=== PATIENT | male | born 1950 | race Caucasian/White ===

== ENCOUNTER → 2023-08-14 07:05 | Outpatient (REF) | payer OTHER, SELFPAY | LOC: RAD 07:05 | PROVIDERS: ATTENDING PHYSICIAN Internal Medicine Cardiovascular Disease; FAMILY PHYSICIAN Family Medicine | DX: I50.22 Chronic systolic (congestive) heart failure (principal); I71.40 Abdominal aortic aneurysm, without rupture, unspecified | CPT/HCPCS: 76770 ==

== ENCOUNTER 2023-09-07 18:53 | Inpatient (IN) | payer OTHER, SELFPAY ==
[2023-09-07] VITALS (13 sets, daily range): BP systolic 94–113; BP diastolic 72–90; BMI 24.5; BMI 24.0
[2023-09-07 11:55] LABS: % Basophils 0.1 % (0-2); % Eosinophils 0.1 % (0-6); % Immature Granulocytes 0.7 % (0-0.5); % Lymphocytes 6.3 % (20.5-51.1); % Monocytes 8.1 % (1.7-9.3); % Neutrophils 84.7 % (42.2-75.2); Absolute Immature Granulocytes 0.1 10^3/uL (0-0.05); Absolute Lymphocytes 0.7 10^3/uL (1.2-3.4); Absolute Monocytes 0.9 10^3/uL (0.1-0.6); Absolute Neutrophils 9.5 10^3/uL (1.4-6.5); Hematocrit 39.7 % (39.0-52.0); Mean Corp Hgb Conc. 32.7 g/dL (33.0-37.0); Mean Corpuscular Hgb 32.7 pg (27.0-31.0); Mean Platelet Volume 10.8 fL (7.4-10.4); Nucleated Red Blood Cells % 0 % (-); Platelet Count 244 10^3/uL (130-400); Red Blood Cell Count 3.97 10^6/uL (4.70-6.10); Red Cell Dist. Width 15.7 % (11.5-14.5); White Blood Cell Count 11.2 10^3/uL (4.8-10.8)
[2023-09-07 12:54] LABS: ALT (SGPT) 271 U/L (0-50); AST (SGOT) 111 U/L (17-59); Albumin 3.9 g/dl (3.5-5.0); Alkaline Phosphatase 122 U/L (38-126); Blood Urea Nitrogen 50 mg/dl (9-20); Calcium 9.8 mg/dl (8.4-10.2); Carbon Dioxide 21 mmol/L (22-30); Chloride 103 mmol/L (98-107); Glucose 109 mg/dl (70-99); Potassium 4.9 mmol/L (3.5-5.1); Sodium 136 mmol/L (135-145); Total Bilirubin 1.6 mg/dl (0.2-1.3); Total Protein 6.7 g/dl (6.3-8.2); eGFR > 60.00
--- NOTE | 2023-09-07 15:33 | ED.GENMED ---
History of Present Illness
General
Chief Complaint: Heart Rate Problem
Time Seen by Provider: 09/07/23 15:33
Travel History
Have you had any contact with someone who has COVID-19?: No
Do you have any symptoms of coronavirus? Fever > 100 degrees, chills, cough, shortness of breath, sore throat, loss of taste or smell, muscle aches, or headache?: No
History of Present Illness
History of Present Illness:
HPI: H/o AFib currently on Eliquis (was at [facility] recently due to LFTs 'in the 999s' - stopped Amio, Coumadin, spironolactone; started lasix, carvedilol) here w/ LE burning and swelling that he thinks could be related to Long COVID. Known to
Mariel and was called indicating he went back into AFib about 1.5 wks ago. He has worsening SOB as well.
EXAM:
GENERAL: Well appearing in no distress
HEENT: Moist oral mucosa
CARDIOVASCULAR: No murmurs, normal heart rate, regular rhythm with some ectopy, No chest wall tenderness, device noted anterior chest wall
PULMONARY: No respiratory distress, breath sounds are clear and equal
ABDOMEN: Soft with no peritoneal signs, no tenderness
NEUROLOGIC: Excellent strength all extremities, no coordination deficits
PSYCHIATRIC: Appropriate mental status, normal insight and judgement
EXTREMITIES: Nontender, 2+ edema on right and 1+ edema in left lower extremity, moves all extremities equally
SKIN: No rash, no lesions
TIME OF INITIAL ENCOUNTER: 3:50 PM
NUMBER AND COMPLEXITY OF PROBLEMS ADDRESSED AT THE ENCOUNTER
� Chronic conditions affecting care: Atrial fibrillation on Eliquis, cardiomyopathy/CHF on Entresto, CAD, has pacer/ICD, basal cell carcinoma
� Acute Exacerbation and/or Progression of Chronic Illness: This is an acute problem
� Differential Diagnosis includes: Cardiomyopathy/CHF worsening off Entresto, atrial fibrillation,
AMOUNT AND/OR COMPLEXITY OF DATA TO BE REVIEWED AND ANALYZED
� I performed an independent evaluation of and my interpretation is:
EKG: Suspect underlying A-fib, V paced
CT:
X-rays: Reviewed chest x-ray, borderline cardiomegaly noted, device noted, may be some mild pulmonary vascular congestion,
Laboratory Studies: BNP 12,000, white count 11.2, hemoglobin 13.0, BUN 50, creatinine 1.2, transaminases are in the 100s-200s.
Other:
� Review of other/old records: Echo from December 2019 showed an EF of 20 to 25%
� Clinical information was obtained by an independent historian: I spoke to the at bedside
� Prescriptions/Medications Considered but not given:
� Further testing considered but not performed:
RISK OF COMPLICATIONS AND/OR MORBIDITY OR MORTALITY OF PATIENT MANAGEMENT
� Social determinants of health affecting care: Lives at home
� Discussion with other providers: I discussed case with Dr. Gan, cardiology who recommends admission to hospitalist service. Dr. Schultz for admission at 5:30 PM.
� Escalation of care including admission/observation vs risk of discharge considered: Symptoms may be related to heart failure. Although his lungs sound fairly clear, he does have exertional dyspnea and his BNP is 12,000, chest
x-ray does show some pulmonary edema. BP has been borderline low�will give only 20 mg of IV Lasix.
Past History
Past History
ED Past Medical History: Arrthythmia and CHF
Social History
Tobacco: Former smoker
Phy Exam
Physical Exam
Physical Exam:
See HPI
Course
Orders/Labs/Results
Orders:
Orders
09/07/23 11:32
Electrocardiogram (*1) Urgent
Reason for Study: Palpitations
EKG- Treatment ONCE
09/07/23 11:48
Complete Blood Count/With Diff Urgent
Comprehensive Metabolic Panel Urgent
NT-proBNP Urgent
Comment: BNP ADDED ON BY FLOOR 3:50pm 09-07-23
09/07/23 15:50
Add On- LAB Urgent
Tests Added?: bnp
09/07/23 15:51
CR Chest - 2 Views Urgent
Comment:
Reason For Exam: sob
US Legs, Bilateral [US Periph Venous LOWER Ext Johnny] Urgent
Comment:
Reason For Exam: R>L LE edema
09/07/23 17:26
Furosemide [Lasix] 20 mg IV NOW STA
Abnormal Lab Results
09/07/23
11:48
WBC 11.2 H 10^3/uL
(4.8-10.8)
RBC 3.97 L 10^6/uL
(4.70-6.10)
MCV 100.0 H fL
(80.0-94.0)
MCH 32.7 H pg
(27.0-31.0)
MCHC 32.7 L g/dL
(33.0-37.0)
RDW 15.7 H %
(11.5-14.5)
MPV 10.8 H fL
(7.4-10.4)
Abs Immat Gran (auto) 0.1 H 10^3/uL
(0-0.05)
Absolute Neuts (auto) 9.5 H 10^3/uL
(1.4-6.5)
Absolute Lymphs (auto) 0.7 L 10^3/uL
(1.2-3.4)
Absolute Monos (auto) 0.9 H 10^3/uL
(0.1-0.6)
Immature Gran % 0.7 H %
(0-0.5)
Neutrophils % 84.7 H %
(42.2-75.2)
Lymphocytes % 6.3 L %
(20.5-51.1)
Carbon Dioxide 21 L mmol/L
(22-30)
BUN 50 H mg/dl
(9-20)
Glucose 109 H mg/dl
(70-99)
Total Bilirubin 1.6 H mg/dl
(0.2-1.3)
AST 111 H U/L
(17-59)
ALT 271 H U/L
(0-50)
09/07/23 11:48
09/07/23 11:48
Vital Signs
Initial and Last Documented VS:
Initial Vital Signs
Temp Pulse Resp BP Pulse Ox
97.7 F 99 18 102/72 99
09/07/23 11:29 09/07/23 11:29 09/07/23 11:29 09/07/23 11:29 09/07/23 11:29
Last Documented Vital Signs
Temp Pulse Resp BP Pulse Ox
97.7 F 91 15 94/78 99
09/07/23 11:29 09/07/23 15:30 09/07/23 15:30 09/07/23 15:00 09/07/23 11:29
*Critical Care Note
Total Time (30-74mins, 75-104mins- exclusive of procedures): Not Applicable
ED Attending Note
-
Portions of this chart may have been created with voice recognition software.� Occasional wrong word or��sound alike� substitutions may have occurred due to the inherent limitations of voice recognition software.
Discharge Plan
Departure
Patient Disposition: Admit
Date of Disposition: 09/07/23
Time of Disposition: 17:31
Presentation/result/management discussed w/ accepting MD/DO: Hospitalist
Discharge Problem:
Congestive heart failure (CHF)
Prescriptions:
No Action
multivitamin 1 EACH tablet
1 ea PO DAILY
pantoprazole 40 MG tablet,delayed release (DR/EC)
40 mg PO DAILY
furosemide 20 MG tablet
20 mg PO DAILY
Patient Comments:
one dose over weekend.
sertraline 50 MG tablet
75 mg PO DAILY
fenofibrate nanocrystallized 145 MG tablet
145 mg PO DAILY
carvedilol 6.25 MG tablet
6.25 mg PO BID
amiodarone [Pacerone] 200 MG tablet
200 mg PO Q48H
spironolactone 25 MG tablet
12.5 mg PO MOWEFR
sacubitril-valsartan [Entresto] 1 EACH tablet
1 tab PO BID
warfarin [Jantoven] 5 MG tablet
2.5 - 5 mg PO QPM Qty: 0 0RF
Patient Comments:
PT TAKES 2.5 MG X 2 DAYS, 5MG X 1 DAY-THEN REPEATS
Rx Instructions:
Resume on Thu evening
Referrals:
Brendan Webber DO [Family Provider] -
Interventions
Interventions:
*Risk Screen - Suicide Last Done: 09/07/23 11:29
*General Assessment Last Done: 09/07/23 11:29
*Neglect/Abuse Screening Last Done: 09/07/23 11:29
ED- Fall Risk Assessment Last Done: 09/07/23 14:26
*ED COVID-19 Vaccine History Last Done: 09/07/23 11:29
ED- Cardiac Assessment Last Done: 09/07/23 14:26
ED- Pulmonary Assessment Last Done: 09/07/23 14:26
Discharge Date and Time
Print Language: ISRAELI
--- NOTE | 2023-09-07 16:56 | CON.CAR ---
Addendum entered and electronically signed by Brendan Garg MD 09/07/23 17:59:
Patient seen and examined
Agree with FERNIE Spencer's note and assessment
Agree with FERNIE Spencer's plan
Recent hospitalization and records reviewed demonstrating hypotension, elevated liver enzymes, discontinuation of multiple medicines including amiodarone, Entresto, spironolactone and he has been approximately 2 to 3 weeks of atrial fibrillation
with modestly elevated rates in 80s to 90s which is interfering with his biventricular pacing. By report a low I do not have records they tell me that his aneurysm was reimaged at [facility] demonstrating a 4.9 cm abdominal aneurysm with imaging
here at 4.2 cm just last month in July. He was offered surgery for the aneurysm at [facility] which they declined. We will have to obtain these records. He has no abdominal pain currently. He does examine 2 symptoms and signs of congestive
heart failure and is in persistent atrial fibrillation. He has a biventricular ICD in place with ejection fraction most recent of 20 to 25% and he sees Dr. Fausto Floyd in the office. He has a prior pulmonary vein isolation in 2017 and had
been on chronic amiodarone use since then.
Currently seen in the ER he is in mild respiratory distress and has symptoms and signs of congestive heart failure.
His INRs have been 'up and down 'and during the first week of being in atrial fibrillation his INRs appear to be less than 2 and we will have to corroborate in the records. Ultimately given his up-and-down INR is over the past number of months he
was switched to Eliquis at discharge from [facility] on August 31.
Examination:
He is icteric
H&T otherwise normocephalic atraumatic
JVP is 8
Cor is irregularly irregular with 1 out of 6 systolic murmur at the axilla
He has rales at his bases otherwise clear
Abdomen is soft with a palpable abdominal pulse
He has 1+ edema to his mid calf
He is nonfocal neurologically
He is alert and orient x 3
He is warm dry
Impression:
Acute HFrEF
ICM EF 20-25% by echo 01/16/20
Recurrent atrial fibrillation
Transaminitis
Biventricular volume overload
Persistent Afib
s/p PVI 09/25/16
previously on chronic amiodarone, stopped due to elevated LFTs at [facility] 08/30/23Eliquis OAC
changed from warfarin to Eliquis during admission to [facility] 4CAD s/p PCI at [facility] 2000
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
CKD 3a
AAA 4.2 cm at imaging here in July 2023 and by report per the patient and 4.9 cm at imaging at [facility] of that we do not have the records
Echo 2019: EF 20-25%
Echo 08/30/23: [facility] study, EF 20%, RV mildly enlarged, mod MR
Plan:
-Patient was just admitted to [facility] and now comes to with the same symptoms and cardiology is consulted for Afib and acute HF. Patient was just admitted to [facility] 08/29/23 until 09/01/23 with elevated LFTs. Patient was seen by GI and his amiodarone
and Tricor were stopped. Records from [facility] were obtained and reviewed. Due to hypotension he also had his Entresto and spironolactone were also stopped. He has known ICM and EF as low as 5-10% in the past, but in 2020 it was 20-25% in 2020. He had
an echo at [facility] and it was 20%. On 08/25/23 [facility] was notified that patient was in Afib that started on 08/22/23. INRs managed by PCP and have been up and down. During his admission to [facility] he was switched to Eliquis and has been taking faithfully since
then.
-Will need to get INRs to see if he has been subtherapeutic prior to starting an alternative AAD. Tikosyn could be considered pending INRs. He has been taking Eliquis faithfully.
-Diurese and follow Cre. Cre 1.2 now
-Relook at [facility]
-In the short-term we will perform diuresis and I suspect he needs 1 to 2 days of IV diuresis before considering DOUGLAS guided cardioversion to restore sinus rhythm. If his creatinine is stable we could consider dofetilide loading post DOUGLAS as he has
been in atrial fibrillation for a period of time with a subtherapeutic INR and is now on Eliquis. We will check his ICD this admission to determine approximate time of initiation of atrial fibrillation.
-We will obtain records from [facility] and given the possibility of significant increase in his AAA we will ask for an opinion from vascular surgery regarding proper next steps after we obtain old records from [facility]
[place]. They declined the offer of AAA repair at [facility] during this last weeks admission there.
-Ultimately a more definitive attempt at rhythm control could be considered with a repeat ablation in the coming months although in the short-term we will focus on diuresis and anabaptist of sinus rhythm as well as workup of the vascular related
issues. An antiarrhythmic drug such as dofetilide could be considered depending on hospital course and if no procedures are planned
Original Note:
Consultation
Consultation Request
Date/Time Consultation Requested: 09/07/23
Date/Time Consultation Performed: 09/07/23
Requesting Provider: Dr. Delvalle in the ER
Performing Provider: Dr. Garg
Reason for Consultation: LE edema, possible acute HF
Medical History
-
History of Present Illness:
Patient was just admitted to [facility] and now comes to with the same symptoms and cardiology is consulted for Afib and acute HF. Patient was just admitted to [facility] 08/29/23 until 09/01/23 with elevated LFTs. Patient was seen by GI and his amiodarone and
Tricor were stopped. Records from [facility] were obtained and reviewed. Due to hypotension he also had his Entresto and spironolactone were also stopped. He has known ICM and EF as low as 5-10% in the past, but in 2020 it was 20-25% in 2020. He had an
echo at [facility] and it was 20%. On 08/25/23 [facility] was notified that patient was in Afib that started on 08/22/23. INRs managed by PCP and have been up and down. During his admission to [facility] he was switched to Eliquis and has been taking faithfully since
then.
PMH:
Chronic HFrEF
ICM EF 20-25% by echo 01/16/20
Persistent Afib
s/p PVI 09/25/16
previously on chronic amiodarone, stopped due to elevated LFTs at [facility] 08/30/23
Eliquis OAC
changed from warfarin to Eliquis during admission to [facility] 08/2023
CAD s/p PCI at [facility] 2000
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
CKD 3a
AAA
Echo 2019: EF 20-25%
Echo 08/30/23: [facility] study, EF 20%, RV mildly enlarged, mod MR
Plan:
-
Past Medical History
Past Medical History: Other (in HPI)
Past Surgical History: Cardiac ([employer] PATIENT REGISTRATION SPECIALIST-D, PCI 2010)
Social History
Tobacco: Former Smoker
Alcohol: Daily (2-3 beers a day but stopped 2 weeks ago)
Personal:
Living: With Family
Family History
Family History: Other (brother with PPM)
Allergies / Home Medications
Allergy/AdvReac Type Severity Reaction Status Date / Time
enalapril [Enalapril] Allergy lip, Verified 09/07/23 11:31
tongue and
other body
swelling
�Medication �Instructions �Recorded �Confirmed �Type
fenofibrate nanocrystallized 145 145 mg PO DAILY 09/27/09 08/20/21 History
mg tablet
furosemide 20 mg tablet 20 mg PO DAILY 09/27/09 08/20/21 History
multivitamin 1 ea PO DAILY 09/27/09 08/20/21 History
pantoprazole 40 mg tablet,delayed 40 mg PO DAILY 09/27/09 08/20/21 History
release
sertraline 50 mg tablet 75 mg PO DAILY 09/27/09 08/20/21 History
carvedilol 6.25 mg tablet 6.25 mg PO BID 09/24/16 08/20/21 History
amiodarone 200 mg tablet (Pacerone) 200 mg PO Q48H 11/11/17 08/20/21 History
spironolactone 25 mg tablet 12.5 mg PO MOWEFR 08/08/21 08/20/21 History
sacubitril 24 mg-valsartan 26 mg 1 tab PO BID 08/13/21 08/20/21 History
tablet (Entresto)
warfarin 5 mg tablet (Jantoven) 2.5 - 5 mg (0.5 - 1 x 5 mg) PO QPM 08/20/21 08/20/21 Rx
##0
Review of Systems
-
History Source: Patient and Family ( sitting bedside helps with HPI)
All other systems: Negative unless noted
Physical Exam
Vital Signs
Temp Pulse Resp BP Pulse Ox
97.7 F 91 15 94/78 99
09/07/23 11:29 09/07/23 15:30 09/07/23 15:30 09/07/23 15:00 09/07/23 11:29
GEN: NAD. AAOx3
HEENT: EOMI, MMM
LUNGS: Few rales at bases. No wheeze
CV: Irreg irreg
ABD: soft, BS+, NT/ND
EXT: +1-2 right worse than left B/L LE edema
NEURO: Gross non-focal
SKIN: Warm, dry and pink. No rash
Lab Results
09/07/23 11:48
09/07/23 11:48
Impression / Plan
-
PCP: Dr. Webber
Cardiology: Dr. Fausto Floyd
Impression:
Acute HFrEF
ICM EF 20-25% by echo 01/16/20
Persistent Afib
s/p PVI 09/25/16
previously on chronic amiodarone, stopped due to elevated LFTs at [facility] 08/30/23
Eliquis OAC
changed from warfarin to Eliquis during admission to [facility] 08/2023
CAD s/p PCI at [facility] 2000
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
CKD 3a
AAA
Echo 2019: EF 20-25%
Echo 08/30/23: [facility] study, EF 20%, RV mildly enlarged, mod MR
Plan:
-Patient was just admitted to [facility] and now comes to with the same symptoms and cardiology is consulted for Afib and acute HF. Patient was just admitted to [facility] 08/29/23 until 09/01/23 with elevated LFTs. Patient was seen by GI and his amiodarone
and Tricor were stopped. Records from [facility] were obtained and reviewed. Due to hypotension he also had his Entresto and spironolactone were also stopped. He has known ICM and EF as low as 5-10% in the past, but in 2020 it was 20-25% in 2020. He had
an echo at [facility] and it was 20%. On 08/25/23 [facility] was notified that patient was in Afib that started on 08/22/23. INRs managed by PCP and have been up and down. During his admission to [facility] he was switched to Eliquis and has been taking faithfully since
then.
-Will need to get INRs to see if he has been subtherapeutic prior to starting an alternative AAD. Tikosyn could be considered pending INRs. He has been taking Eliquis faithfully.
-Diurese and follow Cre. Cre 1.2 now
-Relook at [facility]
[2023-09-07 17:02] LABS: NT-proBNP 12000 pg/ml
--- NOTE | 2023-09-07 17:51 | HPS.HSE ---
Family Physician
-
Family Physician: Brendan Webber
Chief Complaint
-
Lower extremity edema and shortness of breath
History of Present Illness
Patient 73 years old male with past medical history of hypertension, hyperlipidemia, chronic systolic CHF, persistent atrial fibrillation, ventricular tachycardia, CAD, valvulopathy, COPD presents to the hospital with shortness of breath and lower
extremity edema. Patient was recently admitted to [place] and he was noted to have elevated liver function test and most of his medications were discontinued including amiodarone, amoxicillin, Entresto, fenofibrate, multivitamin, spironolactone;
also warfarin changed to Eliquis and he went to see his PCP today and he was instructed to come to the hospital for further evaluation. Patient has been complaining of shortness of breath and also some lower extremity edema. His right lower
extremity more pronounced in terms of edema down to his left. He had an ultrasound of the leg no evidence of DVT today. Patient had an EF in the past and 5 to 10% but in 2020 up to 20-25% and he has been hovering around that range. Due to
antibiotics INR is in the past also Eliquis was switched. He has been taking this and working consistently and last dose was this morning. He denies any fevers or chills. He was referred to hospitalist for further evaluation.
Medical History
Past Medical History
Past Medical History: Reports Other (Hypertension, hyperlipidemia, chronic systolic CHF, persistent atrial fibrillation, ventricular tachycardia, CAD, valvulopathy, COPD, CKD, GERD, hiatal hernia, osteoarthritis, anemia, depression, colon polyps,
osteoarthritis, basal cell carcinoma.)
Past Surgical History: Reports Other (Pacemaker, pulmonary vein isolation, left total hip arthroplasty, left elbow surgery, pilonidal cystectomy, bilateral cataract extraction, colonoscopy.)
Social History
Tobacco: Former Smoker
Alcohol: None
Drug: None
Family History
Family History: Not pertinent
Allergies / Home Medications
Allergies reflects when Allergies were last updated in [facility].
Home Medications with original date entered in [facility]
Allergy/Medication List:
Allergies
Allergy/AdvReac Type Severity Reaction Status Date / Time
enalapril [Enalapril] Allergy lip, Verified 09/07/23 11:31
tongue and
other body
swelling
Home Medications
furosemide 20 mg tablet 20 mg PO DAILY 09/27/09
sertraline 50 mg tablet 75 mg PO DAILY 09/27/09
carvedilol 6.25 mg tablet 6.25 mg PO BID 09/24/16
apixaban 5 mg tablet (Eliquis) 5 mg PO BID 09/07/23
famotidine 20 mg tablet 20 mg PO DAILY 09/07/23
Review of Systems
-
A 12 point ROS was completed and negative except as noted: Yes
Physical Exam
Vital Signs
Vital Signs
Temp Pulse Resp BP Pulse Ox
97.7 F 91 15 94/78 99
09/07/23 11:29 09/07/23 15:30 09/07/23 15:30 09/07/23 15:00 09/07/23 11:29
Physical exam:
General: Acutely ill
HEENT: Normocephalic, Atraumatic and Moist Mucous Membranes
Respiratory: Coarse crackles bilateral; Negative Wheezes or Rhonchi
Cardiac: Regular Rhythm and S1/S2
GI: Soft, Nontender and Nondistended
Musculoskeletal: Bilateral edema. No Clubbing, No Cyanosis
Neuro: Awake, Alert and Oriented, no gross neuro-deficits
Psych: Calm
Physical Exam
General: Other
Laboratory Results
-
09/07/23 11:48
09/07/23 11:48
Laboratory Results
Total Bilirubin 1.6 mg/dl (0.2-1.3) H 09/07/23 11:48
AST 111 U/L (17-59) H 09/07/23 11:48
ALT 271 U/L (0-50) H 09/07/23 11:48
Alkaline Phosphatase 122 U/L (38-126) 09/07/23 11:48
Impression/Plan
-
IMPRESSION:
Patient 73 years old male with multiple comorbidities including complex cardiac history with A-fib, CAD, CHF, V. tach, presented to the hospital with decompensated heart failure, acute on chronic systolic congestive heart failure. His atrial
fibrillation likely contributed to his presentation. He is at increased risk of morbidity mortality due to acute presentation and multiple comorbidities.
Impression:
Acute on chronic systolic CHF
Atrial fibrillation
CKD
Elevated LFTs
Conditions prior to presentation:
Hypertension
Hyperlipidemia
PLAN:
IV diuretics, IV Lasix 40 mg bid if able to tolerate diuresis. Given Lasix 20 mg IV tonight.
Monitor strict I/O
Monitor daily weight
Monitor renal function and electrolytes
Reviewed latest echocardiogram on our system
Continue guideline-directed medical therapy for heart failure (GDMT) as tolerated
Fluid restriction
Salt restriction
Heart failure education
Follow up clinical response
In terms of rate control or rhythm control, will defer to cardiology but either cardioversion or antiarrhythmics or both might be considered or ablation. But for now will continue with carvedilol with holding parameters.
As per recent hospitalization at [facility] they discontinue amiodarone, Entresto, spironolactone, fenofibrate, amoxicillin. They also switched to Coumadin to Eliquis.
Monitor LFTs closely
Obtain ultrasound right upper quadrant tomorrow
DVT prophylaxis with Eliquis
CODE STATUS full code
Will give further recommendations based on his clinical course
Total time spent on today's encounter was 75 minutes which included time spent in counseling the patient/family regarding diagnosis and treatment plan as listed above, goals of care, and symptom management. Case was discussed with nursing staff,
specialists, and care coordinators/case management. All labs and imaging personally reviewed by me. Remainder the time spent in detailed review of previous records, lab data, imaging, and other medical provider documentation.
[2023-09-07] MEDS: LASIX 20 MG IV (18:13)
[2023-09-07] MEDS: COREG 6.25 MG PO (21:15)
[2023-09-07] MEDS: ELIQUIS 5 MG PO (21:15)
[2023-09-08 03:38] VITALS: BP 102/74
[2023-09-08 06:00] VITALS: BMI 23.8
[2023-09-08 06:50] LABS: Hematocrit 38.6 % (39.0-52.0); Hemoglobin 12.4 g/dL (13.0-18.0); Mean Corp Hgb Conc. 32.1 g/dL (33.0-37.0); Mean Corpuscular Hgb 32.2 pg (27.0-31.0); Mean Corpuscular Volume 100.3 fL (80.0-94.0); Mean Platelet Volume 11.3 fL (7.4-10.4); Platelet Count 226 10^3/uL (130-400); Red Blood Cell Count 3.85 10^6/uL (4.70-6.10); Red Cell Dist. Width 15.6 % (11.5-14.5); White Blood Cell Count 10.5 10^3/uL (4.8-10.8)
[2023-09-08 07:24] LABS: ALT (SGPT) 214 U/L (0-50); AST (SGOT) 84 U/L (17-59); Albumin 3.6 g/dl (3.5-5.0); Alkaline Phosphatase 98 U/L (38-126); Blood Urea Nitrogen 44 mg/dl (9-20); Calcium 9.5 mg/dl (8.4-10.2); Carbon Dioxide 24 mmol/L (22-30); Chloride 102 mmol/L (98-107); Estimated Creatinine Clearance 64 ml/min; Glucose 76 mg/dl (70-99); Potassium 4.4 mmol/L (3.5-5.1); Sodium 136 mmol/L (135-145); Total Bilirubin 1.5 mg/dl (0.2-1.3); Total Protein 6.3 g/dl (6.3-8.2); eGFR > 60.00
[2023-09-08 08:21] VITALS: BP 107/80
[2023-09-08] MEDS: LASIX 40 MG IV ×2 (08:21→16:39)
[2023-09-08] MEDS: ELIQUIS 5 MG PO ×2 (08:21→20:29)
[2023-09-08] MEDS: PEPCID 20 MG PO (08:21)
[2023-09-08] MEDS: ZOLOFT 75 MG PO (08:21)
[2023-09-08] MEDS: COREG 6.25 MG PO (08:22)
[2023-09-08] MEDS: FLUSH (NSS) 2 FLUSH IV (08:22)
--- NOTE | 2023-09-08 08:47 | W.PN.HOSP.TC ---
Today's Communication/Plan
-
IV Lasix.
Assessment / Plan
Assessment / Plan
Physical exam:
General: Acutely ill
HEENT: Normocephalic, Atraumatic and Moist Mucous Membranes
Respiratory: Coarse crackles bilateral; Negative Wheezes or Rhonchi
Cardiac: Regular Rhythm and S1/S2
GI: Soft, Nontender and Nondistended
Musculoskeletal: Bilateral edema. No Clubbing, No Cyanosis
Neuro: Awake, Alert and Oriented, no gross neuro-deficits
Psych: Calm
A/P:
Impression:
Acute on chronic systolic CHF
Persistent atrial fibrillation
CKD stage III
Elevated LFTs
Conditions prior to presentation:
Hypertension
Hyperlipidemia
CAD
AAA
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
PLAN:
Continue IV diuretics, IV Lasix 40 mg bid. Tolerating diuretics well.
Cardiology consult appreciated
Monitor strict I/O
Monitor daily weight
Monitor renal function and electrolytes, creatinine stable at 1.1 and potassium 4.4 today
Reviewed latest echocardiogram on our system
Continue guideline-directed medical therapy for heart failure (GDMT) as tolerated
Fluid restriction
Salt restriction
Heart failure education
Follow up clinical response
In terms of rate control or rhythm control, will defer to cardiology but either cardioversion or antiarrhythmics or both might be considered or ablation. But for now will continue with carvedilol with holding parameters.
As per recent hospitalization at [facility] they discontinue amiodarone, Entresto, spironolactone, fenofibrate, amoxicillin. They also switched to Coumadin to Eliquis.
Monitor LFTs closely--> we will order an ultrasound right upper quadrant and hepatitis panel. Suspect passive venous congestion from congestive heart failure playing significant role.
DVT prophylaxis with Eliquis
CODE STATUS full code
Total time spent on today's encounter was 52 minutes which included time spent in counseling the patient/family regarding diagnosis and treatment plan as listed above, goals of care, and symptom management. Case was discussed with nursing staff,
specialists, and care coordinators/case management. All labs and imaging personally reviewed by me. Remainder the time spent in detailed review of previous records, lab data, imaging, and other medical provider documentation.
Anticipated Discharge: > 48 hours
Subjective/Interval History
-
Date of Service: September 08, 2023
Patient has less shortness of breath, no chest pain. Afebrile
Objective Data
-
Labs:
Laboratory Results
09/08/23
06:03
WBC 10.5
Hgb 12.4 L
Hct 38.6 L
Plt Count 226
Sodium 136
Potassium 4.4
Chloride 102
Carbon Dioxide 24
BUN 44 H
Creatinine 1.1
Glucose 76
Calcium 9.5
Total Bilirubin 1.5 H
AST 84 H
ALT 214 H
Alkaline Phosphatase 98
Vital Signs:
Vital Signs
Temp Pulse Resp BP Pulse Ox
97.8 F 96 18 107/80 97
09/08/23 08:21 09/08/23 08:22 09/08/23 08:21 09/08/23 08:22 09/08/23 08:21
I&O
09/07/23 09/08/23 09/09/23
06:59 06:59 06:59
Output Total 775 / 775 200 / 200
Balance -775 / -775 -200 / -200
Review of Systems
-
All other systems: Reviewed and negative
[2023-09-08 09:53] VITALS: BMI 23.8
--- NOTE | 2023-09-08 11:16 | CM ---
Patient seen bedside.
IA completed.
Patient lives with spouse in a split level home.
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
Patient has had VN in the past, thinks with [facility].
No d/c needs anticipated.
No home oxygen, CPAP or nebs.
PCP: Dr Webber
Pharmacy: [facility]
Plan: home no needs anticiapted.
[2023-09-08 11:56] VITALS: BP 91/69
[2023-09-08 16:26] VITALS: BP 110/71
[2023-09-08] MEDS: FLUSH (NSS) 1 FLUSH IV (16:40)
--- NOTE | 2023-09-08 18:22 | W.PN.CARDCBS ---
Today's Communication / Plan
-
Continue IV Lasix. Continue Coreg.
LFTs and kidney function is improved.
Continue rate control strategy for A-fib for now. Continue Eliquis.
Will decide on DOUGLAS/cardioversion and Tikosyn tomorrow.
Impression / Plan
-
PCP: Dr. Webber
Cardiology: Dr. Fausto Floyd
Impression:
Acute HFrEF
ICM EF 20-25% by echo 01/16/20
Persistent Afib
s/p PVI 09/25/16
previously on chronic amiodarone, stopped due to elevated LFTs at [facility] 08/30/23
Eliquis OAC
changed from warfarin to Eliquis during admission to [facility] 08/2023
CAD s/p PCI at [facility] 2000
Medtronic WRAP TURNER-D
CKD 3a
AAA
Echo 2019: EF 20-25%
Echo 08/30/23: [facility] study, EF 20%, RV mildly enlarged, mod MR
Plan:
-Patient was just admitted to [facility] and now comes to with the same symptoms and cardiology is consulted for Afib and acute HF. Patient was just admitted to [facility] 08/29/23 until 09/01/23 with elevated LFTs. Patient was seen by GI and his amiodarone
and Tricor were stopped. Records from [facility] were obtained and reviewed. Due to hypotension he also had his Entresto and spironolactone were also stopped. He has known ICM and EF as low as 5-10% in the past, but in 2020 it was 20-25% in 2020. He had
an echo at [facility] and it was 20%. On 08/25/23 [facility] was notified that patient was in Afib that started on 08/22/23. INRs managed by PCP and have been up and down. During his admission to [facility] he was switched to Eliquis and has been taking faithfully since
then.
-Continue Lasix 40 mg IV twice daily. He is diuresing well. His weight is down 5 pounds. He will continue the Coreg. His blood pressure is marginal but acceptable. His Entresto and spironolactone were stopped recently.
-He remains in A-fib. We had a lengthy discussion regarding treatment options. We did discuss consideration for DOUGLAS cardioversion with initiation of dofetilide. Creatinine is down to 1.1.
-Liver function testing is improving with diuresis. Will continue to trend. Continue to hold amiodarone for now.
-We will decide tomorrow whether we are going to pursue DOUGLAS cardioversion.
Progress Note - Pai Gow Dealer
Subjective
Date of Service: September 08, 2023
He is improving and diuresing well. His breathing has improved. He does not feel his A-fib.
Objective
Labs:
09/08/23 06:03
09/08/23 06:03
Labs
Hgb 12.4 g/dL (13.0-18.0) L 09/08/23 06:03
Hct 38.6 % (39.0-52.0) L 09/08/23 06:03
Plt Count 226 10^3/uL (130-400) 09/08/23 06:03
Sodium 136 mmol/L (135-145) 09/08/23 06:03
Potassium 4.4 mmol/L (3.5-5.1) 09/08/23 06:03
BUN 44 mg/dl (9-20) H 09/08/23 06:03
Creatinine 1.1 mg/dL (0.7-1.3) 09/08/23 06:03
Glucose 76 mg/dl (70-99) 09/08/23 06:03
Vital Signs and I&O:
Vital Signs
Temp Pulse Resp BP Pulse Ox
98.2 F 93 18 110/71 98
09/08/23 16:26 09/08/23 16:39 09/08/23 16:26 09/08/23 16:39 09/08/23 16:26
Vital Signs
Temp Pulse Resp BP Pulse Ox
98.2 F 93 18 110/71 98
09/08/23 16:26 09/08/23 16:39 09/08/23 16:26 09/08/23 16:39 09/08/23 16:26
Intake & Output
09/06/23 09/07/23 09/08/23 09/09/23
06:59 06:59 06:59 06:59
Output Total 775 / 775 200 / 200
Balance -775 / -775 -200 / -200
Physical Exam
Physical Exam
GEN: No distress, awake, Ox3
HEENT: supple, anicteric, mmm
LUNGS: scatt rhonchi
CV: irreg, S1/S2, 1/6 syst LSB, S3+
ABD: soft, BS+, NT/ND
EXT: No edema
NEURO: Gross non-focal
SKIN: No rash
[2023-09-08 19:00] VITALS: BP 99/74
[2023-09-08] MEDS: COREG PO (20:29)
[2023-09-08 23:40] VITALS: BP 103/76
[2023-09-09] VITALS (8 sets, daily range): BP systolic 88–115; BP diastolic 56–77; BMI 23.0
[2023-09-09 06:07] LABS: ALT (SGPT) 192 U/L (0-50); AST (SGOT) 61 U/L (17-59); Albumin 3.4 g/dl (3.5-5.0); Alkaline Phosphatase 86 U/L (38-126); Blood Urea Nitrogen 40 mg/dl (9-20); Carbon Dioxide 28 mmol/L (22-30); Chloride 99 mmol/L (98-107); Estimated Creatinine Clearance 64 ml/min; Glucose 93 mg/dl (70-99); Magnesium 1.9 mg/dl (1.6-2.3); Potassium 3.5 mmol/L (3.5-5.1); Sodium 134 mmol/L (135-145); Total Bilirubin 1.2 mg/dl (0.2-1.3); eGFR > 60.00
--- NOTE | 2023-09-09 08:20 | W.PN.CARDCBS ---
Addendum entered and electronically signed by Andrew Gan DO 09/09/23 13:56:
I saw and examined the patient.
The Circuit Tester's note was reviewed and I agree with the note.
Comment:
Plan:
Weight continues to come down and is down at least 8 pounds from admission. Continue IV Lasix 40 mg twice daily diuresis. Creatinine remained stable.
Continue to monitor I's and O's, daily weights and creatinine.
Recent echo from [facility] August 30, 2023 with EF 20% is comparable to echo from 2020. Patient has known ischemic cardiomyopathy.
Outpatient GDMT included Coreg 6.25 mg BID, Entresto 24/26 mg BID and spironolactone 12.5 mg MWF prior to admission to [facility]. Entresto and spironolactone were stopped at [facility] due to hypotension.
Continue Coreg and will add back Entresto 24/26 mg BID starting 09/09/23 PM. Continue to monitor blood pressure and creatinine.
Patient has a history of paroxysmal atrial fibrillation with previous PVI. He was maintaining SR on amiodarone 200 mg daily until recurrence of Afib detected on his Medtronic MEDICAL SECRETARY RECEPTIONIST-D on 08/22/23. Patient was then admitted to [facility] on 08/29/23 and
amiodarone was stopped due to elevated LFTs.
-INRs have been subtherapeutic and previously managed by PCP. At [facility] INR 08/30/23 was 4.0, 08/31/23 was 2.2 and 09/01/23 was 1.9. [facility] changed patient from warfarin to Eliquis on 09/01/23.
EP discussed consideration for DOUGLAS/cardioversion with initiation of Tikosyn. Patient would require DOUGLAS given recent subtherapeutic INRs before transitioning to Eliquis.
The patient is unsure he would like to proceed and we will discuss with his daughter Elisha who has a background in [employer].
Vascular consulted for history of AAA. The patient is undergoing CT abdominal aorta for further evaluation. If the AAA is stable he will be recommended outpatient follow-up per vascular.
LFTs continue to improve with being off amiodarone and with diuresis.
Original Note:
Today's Communication / Plan
-
Vascular surgery consulted
Will call patient's daughter about Tijaycen
Impression / Plan
-
PCP: Dr. Webber
Cardiology: Dr. Fausto Floyd
Impression:
Acute HFrEF
ICM EF 20-25% by echo 01/16/20
Persistent Afib
s/p PVI 09/25/16
previously on chronic amiodarone, stopped due to elevated LFTs at [facility] 08/30/23
Eliquis OAC
changed from warfarin to Eliquis during admission to [facility] 08/2023
CAD s/p PCI at [facility] 2000
Medtronic MEDICAL SECRETARY RECEPTIONIST-D
CKD 3a
AAA
4.2 cm by U/S at 08/14/23
4.[address] AAA [address] CT at [facility] 08/29/23
4.1 cm by U/S at 09/08/23
Echo 2019: EF 20-25%
Echo 08/30/23: [facility] study, EF 20%, RV mildly enlarged, mod MR
Plan:
-Weight is down at least 8 lbs this admission with Lasix 40 mg IV BID diuresis. Cre is stable at 1.1. BP stable
-EF 20% by echo at [facility] 08/30/23 which is stable compared to echo from 2019. Patient with known ICM.
-GDMT included Coreg 6.25 mg BID, Entresto 24/26 mg BID and spironolactone 12.5 mg MWF prior to admission to [facility]. Entresto and spironolactone were stopped at [facility] due to hypotension.
-Patient is currently tolerating Coreg 6.25 mg BID. Will add back Entresto 24/26 mg BID starting 09/09/23 PM. Follow BP and Cre
-Patient with h/o paroxysmal Afib and previous PVI. He was maintaining SR on amiodarone 200 mg daily until recurrence of Afib detected on his Medtronic MEDICAL SECRETARY RECEPTIONIST-D on 08/22/23. Patient was then admitted to [facility] on 08/29/23 and amiodarone was stopped due to
elevated LFTs.
-INRs have been subtherapeutic and previously managed by PCP. At [facility] INR 08/30/23 was 4.0, 08/31/23 was 2.2 and 09/01/23 was 1.9. [facility] changed patient from warfarin to Eliquis on 09/01/23.
-Patient with ongoing Afib upon admission to . Last dose of amiodarone was 08/30/23. Talked with patient about adding alternative AAD in the form of Tikosyn. Due to subtherapeutic INRs patient would need a DOUGLAS prior starting Tikosyn. Patient would
like his daughter to be updated before he makes a decision, will call daughter Elisha at [phone] on 09/09/23.
-Patient had abdominal u/s at 08/14/23 and he had a 4.2 cm AAA. Patient had an abdominal CT with contrast at [facility] as part of his elevated LFTs work-up and the report said the AAA was 4.9 cm. Patient was seen by Vascular surgery team at [facility] and
was told he should have surgery and he declined. Now that patient is admitted to he had another abdominal u/s and the AAA is 4.1 cm. Vascular surgery at consulted and is recommending a CT abdomen for 09/09/23. Patient will likely be recommended
outpatient follow up
-LFTs continue to trend down with diuresis and ongoing washout of amiodarone
HPI: Patient was just admitted to [facility] and now comes to with the same symptoms and cardiology is consulted for Afib and acute HF. Patient was just admitted to [facility] 08/29/23 until 09/01/23 with elevated LFTs. Patient was seen by GI and his
amiodarone and Tricor were stopped. Records from [facility] were obtained and reviewed. Due to hypotension he also had his Entresto and spironolactone were also stopped. He has known ICM and EF as low as 5-10% in the past, but in 2019 it was 20-25% in
2019. He had an echo at [facility] and it was 20%. On 08/25/23 [facility] was notified that patient was in Afib that started on 08/22/23. INRs managed by PCP and have been up and down. During his admission to [facility] he was switched to Eliquis and has been taking
faithfully since then.
Progress Note - Auctioneer Tobacco
Subjective
Date of Service: September 09, 2023
No palpitations
Objective
Labs:
09/08/23 06:03
09/09/23 05:08
Labs
Hgb 12.4 g/dL (13.0-18.0) L 09/08/23 06:03
Hct 38.6 % (39.0-52.0) L 09/08/23 06:03
Plt Count 226 10^3/uL (130-400) 09/08/23 06:03
Sodium 134 mmol/L (135-145) L 09/09/23 05:08
Potassium 3.5 mmol/L (3.5-5.1) 09/09/23 05:08
BUN 40 mg/dl (9-20) H 09/09/23 05:08
Creatinine 1.1 mg/dL (0.7-1.3) 09/09/23 05:08
Glucose 93 mg/dl (70-99) 09/09/23 05:08
Vital Signs and I&O:
Vital Signs
Temp Pulse Resp BP Pulse Ox
97.9 F 87 18 115/77 97
09/09/23 08:13 09/09/23 08:13 09/09/23 08:13 09/09/23 08:13 09/09/23 08:13
Vital Signs
Temp Pulse Resp BP Pulse Ox
97.9 F 87 18 115/77 97
09/09/23 08:13 09/09/23 08:13 09/09/23 08:13 09/09/23 08:13 09/09/23 08:13
Intake & Output
09/07/23 09/08/23 09/09/23 09/10/23
06:59 06:59 06:59 06:59
Intake Total 1200 / 1200
Output Total 775 / 775 1550 / 1550
Balance -775 / -775 -350 / -350
Physical Exam
Physical Exam
GEN: NAD. AAOx3
HEENT: EOMI, MMM
LUNGS: No wheeze
CV: Irreg irreg
ABD: soft, BS+, NT/ND
EXT: +1 right worse than left B/L LE edema
NEURO: Gross non-focal
SKIN: Warm, dry and pink. No rash
--- NOTE | 2023-09-09 09:20 | W.PN.HOSP.TC ---
Today's Communication/Plan
-
IV Lasix. CT of the abdomen.
Assessment / Plan
Assessment / Plan
Physical exam:
General: Acutely ill
HEENT: Normocephalic, Atraumatic and Moist Mucous Membranes
Respiratory: Coarse crackles bilateral; Negative Wheezes or Rhonchi
Cardiac: Regular Rhythm and S1/S2
GI: Soft, Nontender and Nondistended
Musculoskeletal: Bilateral edema. No Clubbing, No Cyanosis
Neuro: Awake, Alert and Oriented, no gross neuro-deficits
Psych: Calm
A/P:
Impression:
Acute on chronic systolic CHF
Persistent atrial fibrillation
CKD stage III
Elevated LFTs
AAA
Conditions prior to presentation:
Hypertension
Hyperlipidemia
CAD
Status post Medtronic TUBE HANDLER-D
PLAN:
Continue IV diuretics, IV Lasix 40 mg bid. Tolerating diuretics well.
Updated over the phone today 09/08
Cardiology consult appreciated
Vascular surgery consulted and CT abdomen today.
Monitor strict I/O
Monitor daily weight
Monitor renal function and electrolytes, creatinine stable at 1.1 and potassium 4.4 today
Reviewed latest echocardiogram on our system
Continue guideline-directed medical therapy for heart failure (GDMT) as tolerated
Fluid restriction
Salt restriction
Heart failure education
Follow up clinical response
Cardiology considering the possibility of DOUGLAS/cardioversion and/or Tikosyn. If Tikosyn started will need inpatient monitor for such.
Ultrasound right upper quadrant unremarkable.
Hepatitis screen pending.
LFT trending down
DVT prophylaxis with Eliquis
CODE STATUS full code
Anticipated Discharge: 24 - 48 hours
Subjective/Interval History
-
Date of Service: September 09, 2023
Patient denies chest pain or abdominal pain or back pain. Less shortness of breath
Objective Data
-
Labs:
Laboratory Results
09/09/23
05:08
Sodium 134 L
Potassium 3.5
Chloride 99
Carbon Dioxide 28
BUN 40 H
Creatinine 1.1
Glucose 93
Calcium 9.0
Total Bilirubin 1.2
AST 61 H
ALT 192 H
Alkaline Phosphatase 86
Vital Signs:
Vital Signs
Temp Pulse Resp BP Pulse Ox
97.9 F 87 18 115/77 97
09/09/23 08:13 09/09/23 08:13 09/09/23 08:13 09/09/23 08:13 09/09/23 08:13
I&O
09/08/23 09/09/23 09/10/23
06:59 06:59 06:59
Intake Total 1200 / 1200
Output Total 775 / 775 1550 / 1550
Balance -775 / -775 -350 / -350
Review of Systems
-
All other systems: Reviewed and negative
[2023-09-09] MEDS: COREG 6.25 MG PO ×2 (09:48→20:07)
[2023-09-09] MEDS: PEPCID 20 MG PO (09:48)
[2023-09-09] MEDS: ZOLOFT 75 MG PO (09:49)
[2023-09-09] MEDS: LASIX IV ×2 (09:50→12:40)
[2023-09-09] MEDS: ELIQUIS 5 MG PO ×2 (09:50→20:07)
--- NOTE | 2023-09-09 09:51 | W.PN.UPDATE ---
Update Note
Progress Note Update
Seen and examined with RENDERER. Full consultation to follow. Briefly 73-year-old male with extensive medical history including hypertension, hyperlipidemia, CAD status post stents, CHF, COPD, history of tobacco use quit 25 years ago who presents with
shortness of breath and lower extremity swelling. Patient has known abdominal aortic aneurysm. He notes that he has had this for at least 20 years. It has been followed somewhat irregularly from what he notes in the outpatient setting. He notes
that all ultrasounds suggest that it has been in the 4.[address] scan imaging at [facility] per report demonstrated 4.9 cm aneurysm. Therefore there was some discussion about repair.
Patient is without any abdominal pain or back pain.
Denies any family history of abdominal aortic aneurysms.
On exam/she is awake and alert. Head is normocephalic and atraumatic. Eyes are anicteric. Neck is soft without jugular venous distention. Breathing unlabored. Abdomen is soft, nondistended, nontender. Lower extremity with 2+ femoral,
popliteal, DP pulses palpable bilaterally. Right side with 2+ PT pulse palpable as well.
Ultrasound imaging reviewed (general abdominal ultrasound which did image the aorta dated yesterday, as well as aortic ultrasound dated 08/14/2023). Demonstrates stable 4.1 to 4.2 cm fusiform infrarenal abdominal aortic aneurysm.
Plan/ Based on ultrasound imaging, this aneurysm appears to be stable, and currently no indications for intervention. However, to be certain would obtain CT scan (noncontrast due to renal insufficiency) to better elucidate morphology and appearance
of the aneurysm to clarify. If generally standard/bland appearing aneurysm, likely will continue to follow in the outpatient setting. Have given him my office information and likely we will arrange for outpatient follow-up.
--- NOTE | 2023-09-09 10:42 | CON.VAS ---
Consultation
Consultation Request
Date/Time Consultation Performed: 09/09/2023 1030
Requesting Provider: Autumn Spencer PA-C
Performing Provider: VIJAYA Arambula for Kavon Phelps MD
Reason for Consultation: AAA
Medical History
-
Chief Complaint: AAA
History of Present Illness:
This is a 73-year-old man with significant past medical history of ischemic cardiomyopathy, persistent atrial fibrillation, CAD, CKD stage IIIa, AAA, COPD, and hypertension who presented with the hospital on 09/05/2023 reporting shortness of breath
and worsening bilateral lower extremity edema. HPI is contributed by chart review and discussion with patient, patient indicates he was recently hospitalized at [facility] for similar symptomatology. Chart review indicates patient
was treated for elevated LFTs, heart failure, and hypotension while at [facility]. [facility] AAA which patient indicates he has known about for the past 20 years. However, he indicates that he has not seen a
vascular surgeon or has a designated provider to manage/observe his AAA. [facility]'s vascular team recommended surgical intervention, because imaging obtained suggested an increase of size to 4.9 cm (from past ultrasound readings of roughly 4.1 cm
range), but patient declined. Patient denies familial history of abdominal aortic aneurysm. He denies abdominal or back pain.
Past Medical History
Past Medical History: Arrhythmias (Persistent atrial fibrillation), CAD, CHF, COPD, GERD, HTN and Other (CKD stage III, AAA, osteoarthritis, anemia, depression, colon polyps, osteoarthritis, basal cell carcinoma)
Past Surgical History: Cardiac (PVI 09/25/16, Medtronic WIRE STRAIGHTENER-D)
Social History
Tobacco: Former Smoker
Alcohol: Daily (2-3 beers a day but stopped 2 weeks ago)
Personal:
Living: With Family
Allergies / Home Medications
Allergy/AdvReac Type Severity Reaction Status Date / Time
enalapril [Enalapril] Allergy lip, Verified 09/07/23 11:31
tongue and
other body
swelling
�Medication �Instructions �Recorded �Confirmed �Type
furosemide 20 mg tablet 20 mg PO DAILY 09/27/09 09/07/23 History
sertraline 50 mg tablet 75 mg PO DAILY 09/27/09 09/07/23 History
carvedilol 6.25 mg tablet 6.25 mg PO BID 09/24/16 09/07/23 History
apixaban 5 mg tablet (Eliquis) 5 mg PO BID 09/07/23 09/07/23 History
famotidine 20 mg tablet 20 mg PO DAILY 09/07/23 09/07/23 History
Review of Systems
-
History Source: Patient
Constitutional: Reports No Symptoms
EENT: Reports No Symptoms
Respiratory: Reports Trouble Breathing
Cardiac: Reports No Symptoms
Abdomen/GI: Reports No Symptoms
: Reports No Symptoms
Musculoskeletal: Reports Edema
Skin: Reports No Symptoms
Neurological: Reports No Symptoms
Endocrine: Reports No Symptoms
Physical Exam
Vital Signs
Temp Pulse Resp BP Pulse Ox
97.9 F 87 18 115/77 97
09/09/23 08:13 09/09/23 09:50 09/09/23 08:13 09/09/23 09:50 09/09/23 08:13
Lab Results
09/08/23 06:03
09/09/23 05:08
[id number]-R-[id number] Pept [id number] pg/ml 09/07/23 11:48
Physical Exam
General: No Apparent Distress and Comfortable
HEENT: Normocephalic, Anicteric and Atraumatic
Respiratory: Non Labored Respirations
Cardiac: Irregular Rhythm
GI: Soft, Non Tender and Non Distended
Musculoskeletal: Edema
Neuro: AO x 3
Pulses: Bilateral Femoral: +2, Bilateral Popliteal: +2, Bilateral Dorsalis Pedis: +2 and Bilateral Posterior Tibial: +2
Assessment / Plan
-
Assessment: 73-year-old male with stable infrarenal AAA
Plan:
Based on ultrasound imaging, this aneurysm appears to be stable, and currently no indications for intervention.
However, to be certain would obtain CT scan (noncontrast due to renal insufficiency) to better elucidate morphology and appearance of the aneurysm to clarify. If generally standard/bland appearing aneurysm, likely will continue to follow in the
outpatient setting.
I performed this shared service with the attending. I evaluated the patient [id number] and have entered clinical documentation as shown in the encounter note. I performed the following component(s):�history and physical exam. Note that medical
decision making is not final until attested by vascular attending.
--- NOTE | 2023-09-09 13:29 | W.PN.UPDATE ---
Update Note
Progress Note Update
CT scan images reviewed. Bilobed infrarenal abdominal aortic aneurysm. Proximal infrarenal portion measures about 3.3 cm. Larger of the lobes more inferiorly/distally measures 4.3 cm in transverse dimension by 4.1 to 4.2 cm in AP dimension. See
pictures below. Relatively correlated to ultrasound numbers. No suspicious findings. Follow-up as planned in office in 1 to 2 months. (Office appointment already scheduled and included in discharge instructions). Will sign off. Please call
with questions.
PROXIMAL INFRARENAL AORTA:
DISTAL INFRARENAL AORTA:
--- NOTE | 2023-09-09 15:08 | W.PN.UPDATE ---
Addendum entered and electronically signed by Autumn Spencer PA-C 09/09/23 15:17:
Patient will need to go to IVU after DOUGLAS/CV so that he can be loaded with Tikosyn. labor relations analyst and IV updated.
Original Note:
Update Note
Progress Note Update
Called and talked with patient's daughter, Elisha, for 17:45 min. Reviewed [facility] hospitalization and this admission thus far. Patient's daughter is agreeable to DOUGLAS and initiation of Tikosyn. Patient's daughter indicates that patient drinks at least 3
beers a day or more every day. Also patient's was self-adjusting patient's warfarin dose based on perceived bruising and bleeding. So far no indication that they are adjusting Eliquis. Will make NPO for DOUGLAS in AM.
[2023-09-09] MEDS: LASIX 40 MG IV (17:34)
[2023-09-09] MEDS: ENTRESTO 24 MG/26 MG 1 TAB PO (20:06)
[2023-09-10] VITALS (15 sets, daily range): BP systolic 77–107; BP diastolic 60–78; BMI 23.0
--- NOTE | 2023-09-10 03:56 | PTCARENOTE ---
Pt had 13 beats of v-tach hr 110's and asymptomatic. RN notified INKJET OPERATOR- no new orders at this time. CMP in am. Pt is resting comfortably hr 70-80's, w/ call rodriguez within reach.
[2023-09-10 06:43] LABS: ALT (SGPT) 141 U/L (0-50); AST (SGOT) 49 U/L (17-59); Albumin 3.3 g/dl (3.5-5.0); Alkaline Phosphatase 85 U/L (38-126); Blood Urea Nitrogen 37 mg/dl (9-20); Calcium 9.2 mg/dl (8.4-10.2); Carbon Dioxide 26 mmol/L (22-30); Chloride 99 mmol/L (98-107); Estimated Creatinine Clearance 69 ml/min; Glucose 92 mg/dl (70-99); Potassium 3.2 mmol/L (3.5-5.1); Sodium 134 mmol/L (135-145); Total Bilirubin 1.1 mg/dl (0.2-1.3); Total Protein 5.9 g/dl (6.3-8.2); eGFR > 60.00
--- NOTE | 2023-09-10 08:21 | W.PN.HOSP.TC ---
Today's Communication/Plan
-
IV Lasix. Cardioversion. Tikosyn. QTc monitoring.
Assessment / Plan
Assessment / Plan
Physical exam:
General: Acutely ill
HEENT: Normocephalic, Atraumatic and Moist Mucous Membranes
Respiratory: Coarse crackles bilateral; Negative Wheezes or Rhonchi
Cardiac: Regular Rhythm and S1/S2
GI: Soft, Nontender and Nondistended
Musculoskeletal: Bilateral edema. No Clubbing, No Cyanosis
Neuro: Awake, Alert and Oriented, no gross neuro-deficits
Psych: Calm
A/P:
Impression:
Acute on chronic systolic CHF
Persistent atrial fibrillation
CKD stage III
Elevated LFTs
AAA
Conditions prior to presentation:
Hypertension
Hyperlipidemia
CAD
Status post Medtronic ELECTRONIC SYSTEMS SECURITY ASSESSMENT-D
PLAN:
Continue IV diuretics, IV Lasix 40 mg bid. Tolerating diuretics well.
Updated over 09/08
Cardiology consult appreciated
Plan for cardioversion and Tikosyn today. Transfer to IVU.
Will need close monitoring of QTc with repeated EKGs and cardiac monitoring.
Vascular surgery consulted and CT abdomen shows stable AAA.
Monitor strict I/O
Monitor daily weight
Monitor renal function and electrolytes, creatinine stable at 1.1 and potassium 4.4 today
Reviewed latest echocardiogram on our system
Continue guideline-directed medical therapy for heart failure (GDMT) as tolerated
Fluid restriction
Salt restriction
Heart failure education
Follow up clinical response
Ultrasound right upper quadrant unremarkable.
Hepatitis screen pending.
LFT trending down
DVT prophylaxis with Eliquis
CODE STATUS full code
Total time spent on today's encounter was 52 minutes which included time spent in counseling the patient/family regarding diagnosis and treatment plan as listed above, goals of care, and symptom management. Case was discussed with nursing staff,
specialists, and care coordinators/case management. All labs and imaging personally reviewed by me. Remainder the time spent in detailed review of previous records, lab data, imaging, and other medical provider documentation.
Anticipated Discharge: > 48 hours
Subjective/Interval History
-
Date of Service: September 10, 2023
Patient denies chest pain today. Less shortness of breath. Afebrile
Objective Data
-
Labs:
Laboratory Results
09/10/23
05:36
Sodium 134 L
Potassium 3.2 L
Chloride 99
Carbon Dioxide 26
BUN 37 H
Creatinine 1.0
Glucose 92
Calcium 9.2
Total Bilirubin 1.1
AST 49
ALT 141 H
Alkaline Phosphatase 85
Vital Signs:
Vital Signs
Temp Pulse Resp BP Pulse Ox
97.6 F 83 17 97/67 98
09/10/23 08:04 09/10/23 08:04 09/10/23 08:04 09/10/23 08:04 09/10/23 08:04
I&O
09/09/23 09/10/23 09/11/23
06:59 06:59 06:59
Intake Total 1200 / 1200 1140 / 1140
Output Total 1550 / 1550 1680 / 1680
Balance -350 / -350 -540 / -540
[2023-09-10] MEDS: ELIQUIS 5 MG PO ×2 (08:30→19:29)
[2023-09-10] MEDS: PEPCID 20 MG PO (08:30)
[2023-09-10] MEDS: ZOLOFT 75 MG PO (08:30)
[2023-09-10] MEDS: KCL 270 MEQ IV (08:41)
[2023-09-10] MEDS: COREG 6.25 MG PO (08:53)
--- NOTE | 2023-09-10 09:59 | W.PN.CARDCBS ---
Today's Communication / Plan
-
Weight starting to plateau and is down at least 8 pounds from admission. Is and Os remain negative.
Continue IV Lasix 40 mg twice daily diuresis. BUN/Creatinine stable. Possible transition to PO lasix next 24 hrs.
Continue to monitor I's and O's, daily weights and creatinine.
Recent echo from [facility] August 30, 2023 with EF 20% is comparable to echo from 2019. Patient has known ischemic cardiomyopathy.
Replete lytes as necessary.
Outpatient GDMT included Coreg 6.25 mg BID, Entresto 24/26 mg BID and spironolactone 12.5 mg MWF prior to admission to [facility]. Entresto and spironolactone were stopped at [facility] due to hypotension.
Continue Coreg and and Entresto 24/26 mg BID restarted 09/09/23 PM. Continue to monitor blood pressure and creatinine.
Patient has a history of paroxysmal atrial fibrillation with previous PVI. He was maintaining SR on amiodarone 200 mg daily until recurrence of Afib detected on his Medtronic TYPEWRITER ASSEMBLER-D on 08/22/23. Patient was then admitted to [facility] on 08/29/23 and
amiodarone was stopped due to elevated LFTs. INRs have been subtherapeutic and previously managed by PCP. At [facility] INR 08/30/23 was 4.0, 08/31/23 was 2.2 and 09/01/23 was 1.9. [facility] changed patient from warfarin to Eliquis on 09/01/23.
-Cont Eliquis.
-EP discussed consideration for DOUGLAS/cardioversion with initiation of Tikosyn. Patient would require DOUGLAS given recent subtherapeutic INRs before cardioversion and Tikosyn.
-Daughter Elisha, , updated and pt and daughter would like to proceed.
Vascular consulted for history of AAA. CT abdominal aorta showed up to 4.3 cm in diameter. pt is set up to see vascular in 1-2 months.
Impression / Plan
-
.
PCP: Dr. Webber
Cardiology: Dr. Fausto Floyd
Impression:
Acute HFrEF
ICM EF 20-25% by echo 01/16/20
Persistent Afib
s/p PVI 09/25/16
previously on chronic amiodarone, stopped due to elevated LFTs at [facility] 08/30/23
Eliquis OAC
changed from warfarin to Eliquis during admission to [facility] 08/2023
CAD s/p PCI at [facility] 2000
Medtronic TYPEWRITER ASSEMBLER-D
CKD 3a
AAA
4.2 cm by U/S at 08/14/23
4.9 cm [address] AAA by CT at [facility] 08/29/23
4.1 cm by U/S at 09/08/23
Echo 2019: EF 20-25%
Echo 08/30/23: [facility] study, EF 20%, RV mildly enlarged, mod MR
Plan:
Weight starting to plateau and is down at least 8 pounds from admission. Is and Os remain negative.
Continue IV Lasix 40 mg twice daily diuresis. BUN/Creatinine stable. Possible transition to PO lasix next 24 hrs.
Continue to monitor I's and O's, daily weights and creatinine.
Recent echo from [facility] August 30, 2023 with EF 20% is comparable to echo from 2019. Patient has known ischemic cardiomyopathy.
Replete lytes as necessary.
Outpatient GDMT included Coreg 6.25 mg BID, Entresto 24/26 mg BID and spironolactone 12.5 mg MWF prior to admission to [facility]. Entresto and spironolactone were stopped at [facility] due to hypotension.
Continue Coreg and and Entresto 24/26 mg BID restarted 09/09/23 PM. Continue to monitor blood pressure and creatinine.
Patient has a history of paroxysmal atrial fibrillation with previous PVI. He was maintaining SR on amiodarone 200 mg daily until recurrence of Afib detected on his Medtronic TYPEWRITER ASSEMBLER-D on 08/22/23. Patient was then admitted to [facility] on 08/29/23 and
amiodarone was stopped due to elevated LFTs. INRs have been subtherapeutic and previously managed by PCP. At [facility] INR 08/30/23 was 4.0, 08/31/23 was 2.2 and 09/01/23 was 1.9. [facility] changed patient from warfarin to Eliquis on 09/01/23.
-Cont Eliquis.
-EP discussed consideration for DOUGLAS/cardioversion with initiation of Tikosyn. Patient would require DOUGLAS given recent subtherapeutic INRs before cardioversion and Tikosyn.
-Daughter Elisha, , updated and pt and daughter would like to proceed.
Vascular consulted for history of AAA. CT abdominal aorta showed up to 4.3 cm in diameter. pt is set up to see vascular in 1-2 months.
LFTs continue to trend down with diuresis and ongoing washout of amiodarone. AST has normalized.
HPI: Patient was just admitted to [facility] and now comes to with the same symptoms and cardiology is consulted for Afib and acute HF. Patient was just admitted to [facility] 08/29/23 until 09/01/23 with elevated LFTs. Patient was seen by GI and his
amiodarone and Tricor were stopped. Records from [facility] were obtained and reviewed. Due to hypotension he also had his Entresto and spironolactone were also stopped. He has known ICM and EF as low as 5-10% in the past, but in 2020 it was 20-25% in
2019. He had an echo at [facility] and it was 20%. On 08/25/23 [facility] was notified that patient was in Afib that started on 08/22/23. INRs managed by PCP and have been up and down. During his admission to [facility] he was switched to Eliquis and has been taking
faithfully since then.
Progress Note - Av Specialist
Subjective
Date of Service: September 10, 2023
Pt seen and examined. No complaints. No chest pain or shortness of breath.
Objective
Labs:
09/08/23 06:03
09/10/23 05:36
Labs
Hgb 12.4 g/dL (13.0-18.0) L 09/08/23 06:03
Hct 38.6 % (39.0-52.0) L 09/08/23 06:03
Plt Count 226 10^3/uL (130-400) 09/08/23 06:03
Sodium 134 mmol/L (135-145) L 09/10/23 05:36
Potassium 3.2 mmol/L (3.5-5.1) L 09/10/23 05:36
BUN 37 mg/dl (9-20) H 09/10/23 05:36
Creatinine 1.0 mg/dL (0.7-1.3) 09/10/23 05:36
Glucose 92 mg/dl (70-99) 09/10/23 05:36
Vital Signs and I&O:
Vital Signs
Temp Pulse Resp BP Pulse Ox
97.6 F 83 17 97/56 98
09/10/23 08:04 09/10/23 08:53 09/10/23 08:04 09/10/23 08:53 09/10/23 08:04
Vital Signs
Temp Pulse Resp BP Pulse Ox
97.6 F 83 17 97/56 98
09/10/23 08:04 09/10/23 08:53 09/10/23 08:04 09/10/23 08:53 09/10/23 08:04
Intake & Output
09/08/23 09/09/23 09/10/23 09/11/23
06:59 06:59 06:59 06:59
Intake Total 1200 / 1200 1140 / 1140
Output Total 775 / 775 1550 / 1550 1680 / 1680
Balance -775 / -775 -350 / -350 -540 / -540
Physical Exam
Physical Exam
General: No acute distress, AAOX3
Neck: Negative JVD
Heart: Irregularly irregular, Negative S3 positive S1/S2, Negative S4, No murmur
Lungs: CTA b/l, negative wheezes/rales/rhonchi
Abd: Positive BS, NT/ND, neg rebound/rigidity/guarding
Ext: Negative cyanosis/clubbing/edema
Neuro: nonfocal
--- NOTE | 2023-09-10 10:34 | W.CARD.TIKOS ---
Initiate Tikosyn
-
I verify that the patient has not taken any verapamil (Isoptin/Calan), ketoconazole (Nizoral), cimetidine (Tagamet), trimethoprim (Trimpex), trimethoprim/sulfamethoxazole (Bactrim), megesterol (Megace), prochlorperazine (Compazine),
hydrochlorothiazide (HCTZ), dolutegravir (Tivicay) or any Class I or Class III anti-arrhythmic within the last three days
AND
I verify that the patient has not taken amiodarone within the last THREE months, or that the patient's amiodarone plasma concentration is <0.3 mcg/mL.
Creatinine 1.0 mg/dL (0.7-1.3) 09/10/23 05:36
Estimated Creat Clear 69 ml/min 09/10/23 05:36
CrCl 69 calculated by me using actual body weight
Does patient have a Ventricular Conduction Abnormality: Yes
I have assessed the baseline QTc interval (using QT for heart rate less than 60 bpm) and deemed the patient is appropriate for Dofetilide therapy. I understand that Tikosyn is contraindicated if the QTc is >440msec (500msec in patients with
ventricular conduction abnormalities).
Baseline QTc (in msec): 517
QTc interval is greater than 440msec without conduction abnormality OR greater than 500msec with a conduction abnormality, but acceptable to proceed per Cardiology attending.
Reason for Administration with Prolonged QTc: Paced Rhythm and Other Atrial Arrhythmia
Ordering Physician: Andrew Gan
--- NOTE | 2023-09-10 11:46 | ITS.CL.CARDI ---
Architect Internship - Cardioversion
Cardioversion
Procedure Report:
Date of Procedure: September 10 2023
Procedure: Cardioversion
Indication: Symptomatic atrial fibrillation
Performing Physician: Andrew Gan DO [facility]
Technique: The patient was brought to the holding area. Signed informed consent was obtained. A time out was called and performed. The patient was anesthetized by the anesthesia service. Anticoagulation status was reviewed and appropriate. R2 pads
were placed anteriorly and posteriorly. A 200 J synchronized biphasic shock restored normal sinus rhythm without significant bradycardia. There were no complications.
Conclusion: Uncomplicated cardioversion from atrial fibrillation to sinus rhythm.
Recommendation: Routine post cardioversion care. Continue fdc anticoagulation.
--- NOTE | 2023-09-10 13:04 | PTCARENOTE ---
pt received form labor trainer. pt aaox3. states no pain or sob. room air breath sounds clear. v paced with pvc's seen on monitor. k rider running as ordered.
[2023-09-10] MEDS: TIKOSYN 500 MCG PO (13:19)
[2023-09-10] MEDS: LASIX IV ×2 (13:44→16:23)
[2023-09-10] MEDS: ENTRESTO 24 MG/26 MG PO ×2 (13:44→21:28)
--- NOTE | 2023-09-10 14:53 | CM ---
Addendum entered by Mary Toscano 09/10/23 15:08:
Reviewed co-pay for Dofetilide with MrLuis Armando and Mrs. Loco and they are agreeable to the co-pay.
Original Note:
Reviewed chart. Mr. Loco was transferred to IVU. Met with Mr. and Mrs. Loco to review discharge plans. He states prior to admission he resides with his spouse in a spilt level home without any steps to enter. He states he has seven steps to get
to bedroom/bathroom. He states he has been staying on the first floor. He states he has been sleeping on the sofa. He states prior to admission he ambulates with a rolling walker. He states he has had [facility] in the distant past. He state he has a
prescription plan with [facility] and uses [facility] and mail order. Telephone call to [employer] scripts to check on co-pay. His co-pay for Dofetilide for one month supply would be $9.60 and for mail order for 3 months would be $20.00. He
will need a three day script of Dofetilide to go to [facility], Telephone call to [facility] to see if they have Dofetilide 500 mcg in stock . Left message. Medical work-up in progress. The discharge plan is to return home with his spouse
when medically stable.
--- NOTE | 2023-09-10 19:30 | PTCARENOTE ---
Vpaced. SBP 80s. Pt asymptomatic. Denies any lightheadedness or dizziness. He states 'my blood pressure is usually 105/60.' Assessment per nursing flowsheet.
[2023-09-10 20:01] LABS: Hepatitis B Surface Antigen Negative (Negative)
[2023-09-10 20:19] LABS: Hepatitis B Core Ab, Total Negative (Negative); Hepatitis B Surface Antibody Negative; Hepatitis C Antibody Negative (Negative)
[2023-09-10] MEDS: COREG PO (21:27)
--- NOTE | 2023-09-10 21:34 | PTCARENOTE ---
BP 84/67. Pt remains symptomatic. Entresto and coreg held per order parameters. SANDWICH BOARD CARRIER Scammahorm aware - will continue to monitor.
[2023-09-11] VITALS (9 sets, daily range): BP systolic 77–102; BP diastolic 54–79; BMI 23.1
[2023-09-11 02:35] LABS: Hepatitis A IgM Antibody Negative (Negative)
[2023-09-11 04:53] LABS: Blood Urea Nitrogen 35 mg/dl (9-20); Calcium 9.5 mg/dl (8.4-10.2); Carbon Dioxide 26 mmol/L (22-30); Chloride 103 mmol/L (98-107); Estimated Creatinine Clearance 77 ml/min; Glucose 93 mg/dl (70-99); Sodium 136 mmol/L (135-145); eGFR > 60.00
--- NOTE | 2023-09-11 07:49 | W.PN.HOSP.TC ---
Today's Communication/Plan
-
IV Lasix. Tikosyn. Cardiac monitoring.
Assessment / Plan
Assessment / Plan
Physical exam:
General: Acutely ill
HEENT: Normocephalic, Atraumatic and Moist Mucous Membranes
Respiratory: Coarse crackles bilateral; Negative Wheezes or Rhonchi
Cardiac: Regular Rhythm and S1/S2
GI: Soft, Nontender and Nondistended
Musculoskeletal: Bilateral edema. No Clubbing, No Cyanosis
Neuro: Awake, Alert and Oriented, no gross neuro-deficits
Psych: Calm
A/P:
Impression:
Acute on chronic systolic CHF on IV diuretics.
Persistent atrial fibrillation status post cardioversion. Prior PVI.
CKD stage III
Elevated LFTs, improving
AAA, stable
Conditions prior to presentation:
Hypertension
Hyperlipidemia
CAD
Status post Medtronic WASHROOM CLEANER-D
PLAN:
Continue IV diuretics, IV Lasix 40 mg bid. Tolerating diuretics well.
Cardiology consult appreciated
Cardioversion and Tikosyn started on 09/09.
Will need close monitoring of QTc with repeated EKGs and cardiac monitoring. QTc elevated but likely acceptable by cardiology-->cards following.
Vascular surgery consulted and CT abdomen shows stable AAA.
Monitor strict I/O
Monitor daily weight
Monitor renal function and electrolytes, while on diuresis creatinine stable at 0.9 and potassium 4.0 today
Reviewed latest echocardiogram on our system
Continue guideline-directed medical therapy for heart failure (GDMT) as tolerated
Fluid restriction
Salt restriction
Heart failure education
Follow up clinical response
Ultrasound right upper quadrant unremarkable.
Hepatitis screen negative.
LFT trending down. Can follow-up as outpatient now.
DVT prophylaxis with Eliquis
CODE STATUS full code
Updated prior
Total time spent on today's encounter was 52 minutes which included time spent in counseling the patient/family regarding diagnosis and treatment plan as listed above, goals of care, and symptom management. Case was discussed with nursing staff,
specialists, and care coordinators/case management. All labs and imaging personally reviewed by me. Remainder the time spent in detailed review of previous records, lab data, imaging, and other medical provider documentation.
Anticipated Discharge: 24 - 48 hours
Subjective/Interval History
-
Date of Service: September 11, 2023
Patient without shortness of breath and no chest pain.
Objective Data
-
Labs:
Laboratory Results
09/11/23
03:55
Sodium 136
Potassium 4.0
Chloride 103
Carbon Dioxide 26
BUN 35 H
Creatinine 0.9
Glucose 93
Calcium 9.5
Vital Signs:
Vital Signs
Temp Pulse Resp BP Pulse Ox
97.4 F 77 20 85/72 94
09/11/23 06:55 09/11/23 03:14 09/11/23 06:55 09/11/23 03:14 09/11/23 06:55
I&O
09/10/23 09/11/23 09/12/23
06:59 06:59 06:59
Intake Total 1140 / 1140 400 / 400
Output Total 1680 / 1680 150 / 150
Balance -540 / -540 250 / 250
[2023-09-11] MEDS: LASIX 40 MG IV (08:09)
[2023-09-11] MEDS: FLUSH (NSS) 1 FLUSH IV (08:09)
[2023-09-11] MEDS: ENTRESTO 24 MG/26 MG 1 TAB PO (08:10)
[2023-09-11] MEDS: TIKOSYN 250 MCG PO ×2 (08:10→18:54)
[2023-09-11] MEDS: ELIQUIS 5 MG PO ×2 (08:10→19:49)
[2023-09-11] MEDS: ZOLOFT 75 MG PO (08:10)
[2023-09-11] MEDS: COREG 6.25 MG PO ×2 (08:10→22:23)
[2023-09-11] MEDS: PEPCID 20 MG PO (08:11)
--- NOTE | 2023-09-11 09:22 | PTCARENOTE ---
patient sitting on side of bed, voices that he has been in the hospital too long. monitor shows V paced, VSS, second dose of Tikosyn po given as ordered.
--- NOTE | 2023-09-11 09:34 | W.PN.CARDCBS ---
Addendum entered and electronically signed by Martha Rosas PA-C 09/11/23 16:07:
Hypotension noted this afternoon w/ BP 77/54. Feels 'tired'. Entresto held.
Addendum entered and electronically signed by Liang Sanchez MD 09/11/23 14:58:
I saw and examined the patient.
The TISSUE TECHNICIAN or PA's note was reviewed and I agree with the note.
Comment: General: Well developed, well nourished in NAD.
Neck: Supple, no JVD, HJR, carotids +2 B/L, no bruits bilaterally.
Heart: Non displaced PMI, RRR, no murmurs, No S3, S4, no rubs.
Lungs: Clear to auscultation bilaterally, no wheeze, rhonchi, rubs bilaterally,
normal expiratory phase.
Extremities: No clubbing, cyanosis or edema bilaterally.
Neuro: Grossly nonfocal, awake, alert and oriented x3.
Remains in sinus with ventricular pacing. Continue Tikosyn loading. Should complete Tikosyn loading on Sat 09/11 PM. Would be okay for discharge after second dose on Monday 09/11 and will try to move up p.m. dose to possibly allow discharge.
Consider change to oral Lasix in a.m.
Original Note:
Today's Communication / Plan
-
Continue IV lasix, close to transitioning to PO
Tikosyn loading started 09/10
Follow QTc
Continue Eliquis
Impression / Plan
-
PCP: Dr. Webber
Cardiology: Dr. Fausto Floyd
Impression:
Acute HFrEF
ICM EF 20% by echo 08/30/2023
Persistent Afib
s/p PVI 09/25/16
previously on chronic amiodarone, stopped due to elevated LFTs at [facility] 08/30/23
Eliquis OAC
changed from warfarin to Eliquis during admission to [facility] 08/2023
CAD s/p PCI at 2000
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
CKD 3a
AAA
4.2 cm by U/S at 08/14/23
4.9 cm distal AAA by CT at [facility] 08/29/23
4.1 cm by U/S at 09/08/23
Echo 2019: EF 20-25%
Echo 08/30/23: [facility] study, EF 20%, RV mildly enlarged, mod MR
Plan:
-Presented with afib and acute heart failure.
-He has been diuresing with IV lasix 40mg BID and weight is down 10lbs this admission.
-Creat stable at 0.9. Suspect he is close to transitioning to PO lasix.
-Follow daily weights, I&Os.
-Recent echo from [facility] with EF 20% as noted above. Known ischemic CM.
-Continue medical therapy with coreg and Entresto. Previously had been on spironolactone, but this was stopped at recent admission due to hypotension.
-BP stable. Continue to follow.
-Known h/o paroxysmal atrial fibrillation w/ prior PVI. Amiodarone stopped during recent admission at [facility] due to elevated LFTs.
-Underwent DOUGLAS/CV 09/09 with successful orthodoxy of SR. Remains in SR.
-Now loading w/ Tikosyn 250mg BID. 1st dose given in AM 09/10. Follow QTc after each dose.
HPI: Patient was just admitted to [facility] and now comes to with the same symptoms and cardiology is consulted for Afib and acute HF. Patient was just admitted to [facility] 08/29/23 until 09/01/23 with elevated LFTs. Patient was seen by GI and his
amiodarone and Tricor were stopped. Records from [facility] were obtained and reviewed. Due to hypotension he also had his Entresto and spironolactone were also stopped. He has known ICM and EF as low as 5-10% in the past, but in 2019 it was 20-25% in
2019. He had an echo at [facility] and it was 20%. On 08/25/23 [facility] was notified that patient was in Afib that started on 08/22/23. INRs managed by PCP and have been up and down. During his admission to [facility] he was switched to Eliquis and has been taking
faithfully since then.
Progress Note - Technical Support Manager
Subjective
Date of Service: September 11, 2023
Feeling better. Still w/ minimal edema. No SOB.
Objective
Labs:
09/08/23 06:03
09/11/23 03:55
Labs
Hgb 12.4 g/dL (13.0-18.0) L 09/08/23 06:03
Hct 38.6 % (39.0-52.0) L 09/08/23 06:03
Plt Count 226 10^3/uL (130-400) 09/08/23 06:03
Sodium 136 mmol/L (135-145) 09/11/23 03:55
Potassium 4.0 mmol/L (3.5-5.1) 09/11/23 03:55
BUN 35 mg/dl (9-20) H 09/11/23 03:55
Creatinine 0.9 mg/dL (0.7-1.3) 09/11/23 03:55
Glucose 93 mg/dl (70-99) 09/11/23 03:55
Vital Signs and I&O:
Vital Signs
Temp Pulse Resp BP Pulse Ox
97.4 F 93 20 102/77 94
09/11/23 06:55 09/11/23 08:10 09/11/23 06:55 09/11/23 08:10 09/11/23 06:55
Vital Signs
Temp Pulse Resp BP Pulse Ox
97.4 F 93 20 102/77 94
09/11/23 06:55 09/11/23 08:10 09/11/23 06:55 09/11/23 08:10 09/11/23 06:55
Intake & Output
09/09/23 09/10/23 09/11/23 09/12/23
06:59 06:59 06:59 06:59
Intake Total 1200 / 1200 1140 / 1140 400 / 400
Output Total 1550 / 1550 1680 / 1680 150 / 150
Balance -350 / -350 -540 / -540 250 / 250
Physical Exam
Physical Exam
GEN: No distress, awake, alert, oriented x3
HEENT: supple, anicteric, mmm
LUNGS: CTA, no wheezes/rales
CV: Reg, S1/S2, no murmur
EXT: No clubbing or cyanosis. Trace edema RLE>LLE
NEURO: Gross non-focal
SKIN: Warm, dry, no rash
--- NOTE | 2023-09-11 10:32 | PTCARENOTE ---
QTC 612 Martha JASSO aware.
--- NOTE | 2023-09-11 16:09 | PTCARENOTE ---
BP 77/54, 84/68, patient is tired, Martha JASSO aware, hold Entresto.
[2023-09-11] MEDS: LASIX IV (16:12)
--- NOTE | 2023-09-11 17:08 | CM ---
dc plan remians home when medically stable. his cost for dofetilide is $9.60/month- it is in stock at his [facility]
--- NOTE | 2023-09-11 20:43 | PTCARENOTE ---
Pt seated in bed at time of assessment. Ambulating the room w/ RW. POC discussede pt verbalized understanding. Tikosyn dose given by clarisa RN- EKG due for 2100. VPaced on the monitor. BPs soft- will hold 2000 Coreg as appropriate- and recheck BP
at 2200. call rodriguez within reach.
[2023-09-12 04:06] VITALS: BP 89/68
[2023-09-12 04:21] VITALS: BMI 22.9
[2023-09-12 05:10] LABS: Blood Urea Nitrogen 29 mg/dl (9-20); Calcium 8.8 mg/dl (8.4-10.2); Carbon Dioxide 29 mmol/L (22-30); Chloride 101 mmol/L (98-107); Estimated Creatinine Clearance 86 ml/min; Glucose 85 mg/dl (70-99); Potassium 3.5 mmol/L (3.5-5.1); Sodium 134 mmol/L (135-145); eGFR > 60.00
[2023-09-12 07:05] VITALS: BP 97/74
[2023-09-12] MEDS: TIKOSYN 250 MCG PO ×2 (07:05→17:28)
--- NOTE | 2023-09-12 07:29 | W.PN.CARDCBS ---
Addendum entered and electronically signed by Liang Sanchez MD 09/12/23 10:36:
I saw and examined the patient.
The CREDIT UNDERWRITER or PA's note was reviewed and I agree with the note.
Comment: General: Well developed, well nourished in NAD.
Neck: Supple, no JVD, HJR, carotids +2 B/L, no bruits bilaterally.
Heart: Non displaced PMI, RRR, no murmurs, No S3, S4, no rubs.
Lungs: Clear to auscultation bilaterally, no wheeze, rhonchi, rubs bilaterally,
normal expiratory phase.
Extremities: No clubbing, cyanosis or edema bilaterally.
Neuro: Grossly nonfocal, awake, alert and oriented x3.
Stable cardiology status for discharge after fifth dose of Tikosyn tonight. QT interval okay on Tikosyn. Changed to Lasix 40 mg daily. Follow-up as been arranged. Discussed with primary service
Original Note:
Today's Communication / Plan
-
Transition to PO lasix 40mg daily
Continue Tikosyn 250mcg BID
Follow QTc
Entresto on hold due to hypotension, consider resuming as OP.
Continue Coreg
Follow up arranged.
Impression / Plan
-
PCP: Dr. Webber
Cardiology: Dr. Fausto Floyd
Impression:
Acute HFrEF
ICM EF 20% by echo 08/30/2023
Persistent Afib
s/p PVI 09/25/16
previously on chronic amiodarone, stopped due to elevated LFTs at [facility] 08/30/23
Eliquis OAC
changed from warfarin to Eliquis during admission to [facility] 08/2023
CAD s/p PCI at [facility]2000
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
CKD 3a
AAA
4.2 cm by U/S at 08/14/23
4.[address] AAA [address] CT at [facility] 08/29/23
4.1 cm by U/S at 09/08/23
Echo 2019: EF 20-25%
Echo 08/30/23: [facility] study, EF 20%, RV mildly enlarged, mod MR
Plan:
-Presented with afib and acute heart failure.
-He has been diuresing with IV lasix 40mg BID and weight is down 12lbs this admission.
-Creat stable at 0.8. Will transition to PO lasix 40mg daily. Check BMP in 1 week.
-Follow daily weights, I&Os.
-Recent echo from [facility] with EF 20% as noted above. Known ischemic CM.
-Medical therapy limited by hypotension. Continue Coreg for now. Entresto and spironolactone on hold due to hypotension.
-Known h/o paroxysmal atrial fibrillation w/ prior PVI. Amiodarone stopped during recent admission at [facility] due to elevated LFTs.
-Underwent DOUGLAS/CV 09/09 with successful pentecostalism of SR. Remains in SR.
-Now loading w/ Tikosyn 250mg BID. QT prolonged at 500 mcg, so dose reduced. QTc improved to 591ms after 3rd dose in PM 09/10. Continue to follow.
-Follow up arranged.
HPI: Patient was just admitted to [facility] and now comes to with the same symptoms and cardiology is consulted for Afib and acute HF. Patient was just admitted to [facility] 08/29/23 until 09/01/23 with elevated LFTs. Patient was seen by GI and his
amiodarone and Tricor were stopped. Records from [facility] were obtained and reviewed. Due to hypotension he also had his Entresto and spironolactone were also stopped. He has known ICM and EF as low as 5-10% in the past, but in 2020 it was 20-25% in
2019. He had an echo at [facility] and it was 20%. On 08/25/23 [facility] was notified that patient was in Afib that started on 08/22/23. INRs managed by PCP and have been up and down. During his admission to [facility] he was switched to Eliquis and has been taking
faithfully since then.
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
Subjective
Date of Service: September 12, 2023
No complaints. Feels tired, otherwise no SOB or palpitations.
Objective
Labs:
09/08/23 06:03
09/12/23 04:09
Labs
Hgb 12.4 g/dL (13.0-18.0) L 09/08/23 06:03
Hct 38.6 % (39.0-52.0) L 09/08/23 06:03
Plt Count 226 10^3/uL (130-400) 09/08/23 06:03
Sodium 134 mmol/L (135-145) L 09/12/23 04:09
Potassium 3.5 mmol/L (3.5-5.1) 09/12/23 04:09
BUN 29 mg/dl (9-20) H 09/12/23 04:09
Creatinine 0.8 mg/dL (0.7-1.3) 09/12/23 04:09
Glucose 85 mg/dl (70-99) 09/12/23 04:09
Vital Signs and I&O:
Vital Signs
Temp Pulse Resp BP Pulse Ox
98.2 F 71 18 89/68 98
09/12/23 04:19 09/12/23 04:06 09/12/23 04:19 09/12/23 04:06 09/12/23 04:19
Vital Signs
Temp Pulse Resp BP Pulse Ox
98.2 F 71 18 89/68 98
09/12/23 04:19 09/12/23 04:06 09/12/23 04:19 09/12/23 04:06 09/12/23 04:19
Intake & Output
09/10/23 09/11/23 09/12/23 09/13/23
06:59 06:59 06:59 06:59
Intake Total 1140 / 1140 400 / 400
Output Total 1680 / 1680 150 / 150 1350 / 1350
Balance -540 / -540 250 / 250 -1350 / -1350
Physical Exam
Physical Exam
GEN: No distress, awake, alert, oriented x3
HEENT: supple, anicteric, mmm
LUNGS: CTA, no wheezes/rales
CV: Reg, S1/S2, no murmur
EXT: No clubbing or cyanosis. Trace edema RLE>LLE
NEURO: Gross non-focal
SKIN: Warm, dry, no rash
[2023-09-12] MEDS: COREG 6.25 MG PO (08:44)
[2023-09-12] MEDS: LASIX 40 MG PO (08:45)
[2023-09-12] MEDS: PEPCID 20 MG PO (08:45)
[2023-09-12] MEDS: ELIQUIS 5 MG PO (08:45)
[2023-09-12] MEDS: ZOLOFT 75 MG PO (08:45)
[2023-09-12] MEDS: FLUSH (NSS) 1 FLUSH IV (08:47)
--- NOTE | 2023-09-12 09:39 | W.PN.HOSP.TC ---
Today's Communication/Plan
-
Continue current management. Discharge planning in progress today.
Assessment / Plan
Assessment / Plan
Physical exam:
General: No acute distress
HEENT: Normocephalic, Atraumatic and Moist Mucous Membranes
Respiratory: Clear to auscultation bilateral; Negative Wheezes or Rhonchi or Crackles
Cardiac: Regular Rhythm and S1/S2
GI: Soft, Nontender and Nondistended
Musculoskeletal: Bilateral edema. No Clubbing, No Cyanosis
Neuro: Awake, Alert and Oriented, no gross neuro-deficits
Psych: Calm
A/P:
Impression:
Acute on chronic systolic CHF on IV diuretics.
Persistent atrial fibrillation status post cardioversion. Prior PVI.
CKD stage III
Elevated LFTs, improving
AAA, stable
Conditions prior to presentation:
Hypertension
Hyperlipidemia
CAD
Status post Medtronic IT COORDINATOR-D
PLAN:
Change IV diuretics to oral. Tolerating diuretics well.
Cardiology consult appreciated and assistant technician cleared him for discharge today after evening dose of Tikosyn.
Cardioversion and Tikosyn started on 09/09.
Will need close monitoring of QTc with repeated EKGs and cardiac monitoring.
Vascular surgery consulted and CT abdomen shows stable AAA.
Monitor strict I/O
Monitor daily weight
Monitor renal function and electrolytes, while on diuresis creatinine stable at 0.9 and potassium 4.0 today
Reviewed latest echocardiogram on our system
Continue guideline-directed medical therapy for heart failure (GDMT) as tolerated
Fluid restriction
Salt restriction
Heart failure education
Follow up clinical response
Ultrasound right upper quadrant unremarkable.
Hepatitis screen negative.
LFT trending down. Can follow-up as outpatient now.
DVT prophylaxis with Eliquis
CODE STATUS full code
Updated prior
Anticipated Discharge: Today
Subjective/Interval History
-
Date of Service: September 12, 2023
Patient denies chest pain or shortness of breath. Remains in normal sinus rhythm
Objective Data
-
Labs:
Laboratory Results
09/12/23
04:09
Sodium 134 L
Potassium 3.5
Chloride 101
Carbon Dioxide 29
BUN 29 H
Creatinine 0.8
Glucose 85
Calcium 8.8
Vital Signs:
Vital Signs
Temp Pulse Resp BP Pulse Ox
97.3 F 65 18 97/74 96
09/12/23 08:39 09/12/23 08:00 09/12/23 08:39 09/12/23 07:05 09/12/23 08:39
I&O
09/11/23 09/12/23 09/13/23
06:59 06:59 06:59
Intake Total 400 / 400
Output Total 150 / 150 1350 / 1350
Balance 250 / 250 -1350 / -1350
--- NOTE | 2023-09-12 09:46 | PTCARENOTE ---
Received patient this morning resting in bed. Inquired with cardiology re: tikosyn timing however plan is to give the 5th dose early evening and then discharge home. QTc after 4th dose is 593, tt to Martha JASSO.
--- NOTE | 2023-09-12 10:17 | W.DCSUMMARY ---
Discharge Summary
Discharge Data
Date of Admission: 09/07/23
Date of Discharge: 09/12/23
-
Pending Results: No
Hospital Course
Patient is 73 years old male with history of ischemic cardiomyopathy CAD, persistent atrial fibrillation, CKD, COPD, hypertension, dyslipidemia, AAA, presented to the hospital with shortness of breath and lower extremity edema found to be in acute
on chronic congestive heart failure and persistent atrial fibrillation. Patient had a recent hospitalization at [place] for similar symptomatology and also elevated LFTs. He had some medication adjustments and prior hospitalization at [facility]. Cardiology consulted here. He was aggressively diuresed and he had negative balance and back to his dry weight upon discharge. We were able to switch to oral diuretics. Patient also underwent cardioversion and started on Tikosyn. He went
back into normal sinus rhythm and he tolerated well the antiarrhythmic. Patient also was evaluated by vascular surgery who felt his AAA was stable and can follow-up as outpatient with them. It was attempted to restart Entresto but due to his
relative hypotension it was decided to consider as outpatient along with other strategies for his cardiac conditions. Otherwise, patient is hemodynamically stable feeling symptomatically much improved and back to his baseline. Cardiology cleared
him for discharge today.
Discharge duration: 37 minutes
Discharge Plan
-
Patient Disposition: Home with Home Care
Discharge Diagnosis/Procedures: Acute on chronic systolic congestive heart failure. Persistent atrial fibrillation status post cardioversion. Chronic kidney disease stage III. Elevated liver function test. Abdominal aortic aneurysm. Coronary
artery disease.
Diet: 2 Gram Sodium and Restrict fluids to 48 oz
Activity: As tolerated
Driving Restrictions: As prior to admission
Blood Work: Please PCP to order CBC, CMP, magnesium within 1 week
Specialty Instructions: Weigh Daily- Call MD for wt gain/loss 3 lbs overnight/5 lbs in 1 week
Instructions: *DCA Heart Failure Instructions
Referrals:
Gina Pizano CRNP [Specified Professional Personl] - 09/17/23 2:00 pm (You have a follow up visit with Dr. Rene's UNDERBASTER, Gina, at the [place] office. Please call with questions. )
Brendan Webber DO [Family Provider] - in less than 1 week
Kavon Phelps MD [Active] - 10/13/23 11:00 am
Prescriptions:
New
furosemide 40 mg Tablet
40 mg PO DAILY 30 Days Qty: 30 0RF
dofetilide [Tikosyn] 250 mcg capsule
250 mcg PO Q12H Qty: 60 0RF
Continued
sertraline 50 MG tablet
75 mg PO DAILY
carvedilol 6.25 MG tablet
6.25 mg PO BID
famotidine 20 mg Tablet
20 mg PO DAILY
Eliquis 5 mg Tablet
5 mg PO BID
Discontinued
furosemide 20 MG tablet
20 mg PO DAILY
Patient Comments:
one dose over weekend.
Discharge Orders:
Discharge Patient (As Directed); Ordered 09/12/23
Ordered By: Yasir Hicks
Care Plan Goals
Care Plan Goals:
Problem: Readiness for enhanced knowledge related to diagnosis and treatment plan
Goal: Understand your diagnosis and treatment plan needs, including medications if applicable.
Instructions: Know your diagnosis, underlying causes and treatment plan options, including medications if applicable. Consult with your health care team to learn about your diagnosis and treatment plan, including medications if applicable.
Discharge Date and Time
Discharge Date/Time: 09/12/23 20:13
Print Language: MACEDONIAN
[2023-09-12 11:38] VITALS: BP 86/65
[2023-09-12 15:27] VITALS: BP 90/74
--- NOTE | 2023-09-12 17:46 | PTCARENOTE ---
Patient given 5th dose of tikosyn at 1730 as ordered. at the bedside, reviewed discharge instructions with the patient and his and they state their understanding. Aware of need for lab work, follow up appointments scheduled and new
medications/changes made. Await EKG at 1930 before discharging home.
[2023-09-12 19:34] VITALS: BP 97/64
--- NOTE | 2023-09-12 20:04 | PTCARENOTE ---
Addendum entered by Laure Domingo RN 09/12/23 20:09:
5th dose QTC: 579
Original Note:
Pt scraped his knee on the toilet paper dispenser before being d/c'd- cut cleaned with a saline bullet and silicone boarder foam applied.- at bedside for d/c process. they will recheck his BP at home and then take his 2000 Coreg and Eliquis at
home- based on appropriate parameters. discussed that we had hold parameters for Coreg SBP below 95. verified that she had a dose of Tikosyn for the morning- she verbalized that she did. IV and tele box removed.
--- NOTE | 2023-09-14 11:02 | W.HF.CON ---
Heart Failure
- LV Function
Left ventricular function study result: LV Ejection fraction </= 35%
Ejection Fraction Percentage: 15-20
- ARNI
Patient already on ARNI: No
Heart Failure ARNI Contraindication: Hypotension
- ACEI/ARB
Patient already on ACEI/ARB: No
Heart Failure ACEI/ARB Contraindication: Hypotension
- Beta Damian
Patient already on Evidence Based Beta Damian: Yes
- Mineralocorticord Receptor Antagonist
Patient already on MRA: No
Heart Failure MRA Contraindication: Hypotension
- SGLT-2 Inhibitor
Patient already on SGLT-2 Inhibitor: No
Heart Failure SGLT-2 Inhibitor Contraindication: Patient Refusal
- Afib Anticoagulation
Patient already on Anticoagulation for Afib: Yes
- NYHA CHF Classification
NYHA CHF Classification Level: Class III - Symptoms w/ min exertion, interferes w/ nml daily activity
- ACC/AHA Stage
ACC/AHA Stage: Stage C: Symptomatic Heart Failure
== END 2023-09-12 20:13 | disposition home or self-care (01) | DRG 308 ==
LOC: IVU 18:53
PROVIDERS: Nuclear Medicine Nuclear Cardiology; Student in an Organized Health Care Education/Training Program; ADMITTING PHYSICIAN Hospitalist; CONSULT PHYSICIAN Surgery Vascular Surgery; EMERGENCY PHYSICIAN Emergency Medicine; FAMILY PHYSICIAN Family Medicine; OTHER PHYSICIAN Internal Medicine Cardiovascular Disease
PROC: B24BZZ4 Ultrasonography of Heart with Aorta, Transesophageal (ICD-10-PCS; 2023-09-10)
PROC: 5A2204Z Restoration of Cardiac Rhythm, Single (ICD-10-PCS; 2023-09-10)
DX: I48.19 Other persistent atrial fibrillation (principal); I50.23 Acute on chronic systolic (congestive) heart failure; I13.0 Hypertensive heart and chronic kidney disease with heart failure and stage 1 through stage 4 chronic kidney disease, or unspecified chronic kidney disease; N18.31 Chronic kidney disease, stage 3a; Z87.891 Personal history of nicotine dependence; E78.5 Hyperlipidemia, unspecified; Z79.01 Long term (current) use of anticoagulants; I25.10 Atherosclerotic heart disease of native coronary artery without angina pectoris; I71.43 Infrarenal abdominal aortic aneurysm, without rupture; I25.5 Ischemic cardiomyopathy; I95.9 Hypotension, unspecified
CPT/HCPCS: 71046; 74176; 76700; 80048; 80053; 83735; 83880; 85025; 85027; 86704; 86705; 86706; 86709; 86803; 87340; 92960; 93005; 93312; 93320; 93325; 93970; 99285; 99406

== ENCOUNTER 2023-09-22 09:09 | Day surgery (SDC) | payer OTHER, SELFPAY ==
[2023-09-22] MEDS: ELIQUIS 5 MG PO (09:58)
--- NOTE | 2023-09-22 10:29 | ITS.CL.CARDI ---
[employer] - Cardioversion
Cardioversion
Procedure Report:
Date of Procedure: Sep 22 2023
Procedure: Cardioversion
Indication: Symptomatic atrial fibrillation
Performing Physician: Andrew Gan DO, FACC
Technique: The patient was brought to the holding area. Signed informed consent was obtained. A time out was called and performed. The patient was anesthetized by the anesthesia service. Anticoagulation status was reviewed and appropriate. R2 pads
were placed anteriorly and posteriorly. A 200 J synchronized biphasic shock restored normal sinus rhythm without significant bradycardia. There were no complications.
Conclusion: Uncomplicated cardioversion from atrial fibrillation to sinus rhythm.
Recommendation: Routine post cardioversion care. Continue lobsterman anticoagulation.
== END 2023-09-22 11:30 | disposition home or self-care (01) ==
LOC: CATH 09:09
PROVIDERS: ATTENDING PHYSICIAN Nuclear Medicine Nuclear Cardiology; FAMILY PHYSICIAN Family Medicine
DX: I48.0 Paroxysmal atrial fibrillation (principal); I25.5 Ischemic cardiomyopathy; I50.22 Chronic systolic (congestive) heart failure; I25.10 Atherosclerotic heart disease of native coronary artery without angina pectoris; E78.5 Hyperlipidemia, unspecified; Z95.810 Presence of automatic (implantable) cardiac defibrillator; Z87.891 Personal history of nicotine dependence; Z79.01 Long term (current) use of anticoagulants
CPT/HCPCS: 92960; 93005

== ENCOUNTER 2023-11-11 10:26 | Day surgery (SDC) | payer OTHER, SELFPAY ==
[2023-10-28 10:42] VITALS: BMI 23.9
[2023-10-28 11:02] LABS: % Basophils 0.1 % (0-2); % Immature Granulocytes 0.6 % (0-0.5); % Lymphocytes 8.8 % (20.5-51.1); % Monocytes 10.1 % (1.7-9.3); % Neutrophils 80.4 % (42.2-75.2); Absolute Immature Granulocytes 0.1 10^3/uL (0-0.05); Absolute Monocytes 1.2 10^3/uL (0.1-0.6); Absolute Neutrophils 9.2 10^3/uL (1.4-6.5); Hemoglobin 13.9 g/dL (13.0-18.0); Mean Corp Hgb Conc. 33.1 g/dL (33.0-37.0); Mean Corpuscular Hgb 30.5 pg (27.0-31.0); Mean Corpuscular Volume 92.1 fL (80.0-94.0); Mean Platelet Volume 11.5 fL (7.4-10.4); Nucleated Red Blood Cells % 0 % (-); Platelet Count 264 10^3/uL (130-400); Red Blood Cell Count 4.56 10^6/uL (4.70-6.10); Red Cell Dist. Width 15.6 % (11.5-14.5); White Blood Cell Count 11.5 10^3/uL (4.8-10.8)
[2023-10-28 11:12] LABS: INR 2.76; PT 29.5 Sec (11.4-14.6)
--- NOTE | 2023-10-28 11:54 | HPS.HSE ---
Family Physician
-
Family Physician: Brendan Webber
Chief Complaint
-
Paroxysmal atrial fibrillation.
History of Present Illness
The patient is a 73 year old male presenting today for paroxysmal atrial fibrillation. The patient reports mild dyspnea and fatigue which are likely attributed to this diagnosis. He is on current pharmacological therapy with Carvedilol and
Dofetilide. He has been compliant with Eliquis for oral anticoagulation. He previously underwent pulmonary vein isolation for his arrhythmia in September 2016. He has also undergone 3 previous cardioversions, the most recent of which have occurred in
August and September of this year. Since then, he has had several ICD shocks related to his atrial fibrillation with rapid ventricular rates. His Carvedilol dosing was recently increased to accomodate for this. It is recommended he proceed with pulmonary
vein isolation again for further arrhythmia management. He denies current complaints today such as chest pain, shortness of breath at rest, palpitations, vomiting, diarrhea, cough, sore throat, or fever.
Medical History
Past Medical History
Past Medical History: Reports Other
Additional Past Medical History:
1. Paroxysmal atrial fibrillation, status post pulmonary vein isolation, 09/2016, and cardioversion x3; pharmacological therapy with Dofetilide and Carvedilol, oral anticoagulation with Eliquis.
2. Ventricular tachycardia.
3. Hyperlipidemia.
4. Coronary artery disease, status post PCI with stent x2 09/2000.
5. Chronic systolic heart failure, reduced ejection fraction.
6. Ischemic cardiomyopathy.
7. Status post pacemaker insertion, 2010, upgrade to Medtronic implantable defibrillator, 2011, and subsequent ICD battery generator changes 2013, 2017, and 2021.
8. Moderate-severe mitral regurgitation.
9. Moderate tricuspid regurgitation.
10. Abdominal aortic aneurysm, 4.2 cm on imaging 08/2023.
11. Emphysema noted on chest CT 09/2016.
12. Chronic postnasal drip.
13. Chronic kidney disease, stage 3.
14. GERD.
15. Hiatal hernia.
16. Colon polyps.
17. Cholelithiasis, asymptomatic.
18. Fatty liver disease with chronically elevated transaminases.
19. Right adrenal gland adenoma.
20. Osteoarthritis, status post left total hip arthroplasty 2018.
21. Multilevel degenerative disc disease.
22. Basal cell carcinoma, face, status post excision.
23. Mild anemia.
24. Depression.
25. COVID 19, 04/2023, with residual muscle weakness, fatigue, and nausea.
26. Mild leukocytosis, asymptomatic.
27. Chronic, mild hyponatremia.
28. Remote history of tobacco abuse.
Past Surgical History: Reports Other
Additional Past Surgical History:
SURGICAL HISTORY:
1. Pulmonary vein isolation.
2. DOUGLAS-guided cardioversion x3.
3. Paacemaker insertion.
4. Upgrade to ScreenHitstronic ICD.
5. ICD battery generator change x3.
6. PCI with stent x2.
7. Left total hip arthroplasty.
8. Left elbow surgery.
9. Pilonidal cystectomy.
10. Bilateral cataract extraction.
11. Colonoscopy.
Social History
Tobacco: Former Smoker (He is a former up to two-pack per day cigarette smoker who quit tobacco products altogether in 2000.)
Alcohol: None (since 04/2023. )
Personal:
Living: Other (The patient lives in a multilevel home with his spouse.)
Family History
Family History: Not pertinent
Allergies / Home Medications
Allergy/Medication List:
Home medications:
1. Cholecalciferol 50 mcg p.o. daily.
2. Dofetilide 250 mcg p.o. every 12 hours.
3. Sertraline 75 mg p.o. daily.
4. Eliquis 5 mg p.o. twice a day.
5. Famotidine 20 mg p.o. daily.
6. Furosemide 40 mg p.o. daily.
7. Carvedilol 6.25 mg p.o. three times a day.
Allergies: Enalapril.
Review of Systems
-
A 12 point ROS was completed and negative except as noted: Yes
Physical Exam
Vital Signs
Blood pressure 109/71. Heart rate 63. Respirations 18. Pulse ox 99% on room air.
Height 5 feet, 10.5 inches. Weight 76.5 kg. BMI 23.9.
Physical Exam
General: Well Developed, Well Nourished and No Apparent Distress
HEENT: NormoCephalic, Moist mucous membranes, Atraumatic and PERRLA
Respiratory: Clear
Cardiac: Irregular Rhythm and Other (ICD site intact. )
GI: Soft, Non Tender and Non Distended
Musculoskeletal: Other (Trace bilateral lower extremity edema. The patient ambulates with a walker due to bilateral lower extremity weakness. )
Skin: Warm and Dry
Neuro: AO x 3 and Nonfocal/grossly intact
Laboratory Results
-
10/28/23 10:52
Laboratory Results
PT 29.5 Sec (11.4-14.6) H 10/28/23 10:52
INR 2.76 10/28/23 10:52
DIAGNOSTIC STUDIES as of 10/28/2023: Sodium 134. Potassium 4.4. BUN 48. Creatinine 1.2. Glucose 108. Calcium 9.6. Magnesium 1.9. AST 105. ALT 73. Albumin 4.3. Type and screen O positive.
EKG 10/28/2023: Suspect atrial flutter with ventricular-paced rhythm. Biventricular pacemaker detected.
Echocardiogram 09/10/2023: Mildly dilated left ventricle. Severely reduced left ventricular systolic function with ejection fraction 15 to 20%. Global hypokinesis. Mildly dilated right ventricle with mildly reduced right ventricular systolic
function. Biatrial enlargement. No left atrial appendage thrombus. Moderate tricuspid regurgitation. Moderate to severe mitral regurgitation.
Impression/Plan
-
IMPRESSION/PLAN:
1. Paroxysmal atrial fibrillation: The patient is in need of pulmonary vein isolation with Dr. Fausto Floyd on 11/11/2023. The benefits and risks of the procedure have been explained to the patient. The patient understands these risks and wishes
to proceed. He will hold his Eliquis the night before and morning of his procedure unless he is otherwise specified by his surgeon.
[2023-10-28 12:37] LABS: ALT (SGPT) 73 U/L (0-50); AST (SGOT) 105 U/L (17-59); Albumin 4.3 g/dl (3.5-5.0); Alkaline Phosphatase 71 U/L (38-126); Blood Urea Nitrogen 48 mg/dl (9-20); Calcium 9.6 mg/dl (8.4-10.2); Carbon Dioxide 25 mmol/L (22-30); Chloride 95 mmol/L (98-107); Estimated Creatinine Clearance 56 ml/min; Glucose 108 mg/dl (70-99); Magnesium 1.9 mg/dl (1.6-2.3); Potassium 4.4 mmol/L (3.5-5.1); Sodium 134 mmol/L (135-145); Total Bilirubin 1.7 mg/dl (0.2-1.3); Total Protein 7.1 g/dl (6.3-8.2); eGFR > 60.00
[2023-11-11] VITALS (18 sets, daily range): BP systolic 71–145; BP diastolic 32–128; BMI 22.1
[2023-11-11 13:14] LABS: ACT-LR - POC 348 Seconds (116-155)
[2023-11-11 13:36] LABS: ACT-LR - POC 380 Seconds (116-155)
--- NOTE | 2023-11-11 14:33 | ITS.CL.ABL ---
Position Classification Specialist - Ablation
Ablation
Procedure Report:
ELECTROPHYSIOLOGIC STUDY AND POSSIBLE ABLATION
DATE: November 11, 2023
Primary Care Provider: Dr Brendan Webber
Primary Lumber Tripper: Dr Fausto Floyd
INDICATION:
Symptomatic Atrial Fibrillation.
Persistent
HISTORY: See H and P.
Symptomatic AF, poorly controlled with attempted medical therapy
He has a history of heart failure with reduced ejection fraction, atrial fibrillation, coronary artery disease and chronic kidney disease with baseline creatinine of approximately 1.4. He has had several decompensations of congestive heart failure
but this was markedly improved with better control of his atrial fibrillation as well as upgrading him to BILL DISTRIBUTOR. Since that time ejection fraction improved from 5% to 25%. He had cryoballoon PVI September 25, 2016.
He has recurred with symptomatic atrial fibrillation associated with recurrent heart failure decompensations. He had previously been on amiodarone but more recently on dofetilide. He presents today for EP study and ablation targeting atrial
fibrillation.
HAS-BLED: 3
Age
Abnormal Renal Function
Abnormal Liver Function
CHADSVASc: 4
HFrEF
Age
Vascular Dz
PRESENTING RHYTHM: SR
HISTORY: See H and P.
Symptomatic AF, poorly controlled with attempted medical therapy.
ANTIARRHYTHMIC DRUG: Dofetilide
ANTICOAGULATION: Apixaban
'TIME-OUT': called and confirmed.
SEDATION/ANESTHESIA: provided via the anesthesia department using general anesthesia.
PROCEDURE:
The BILL DISTRIBUTOR defibrillator, Medtronic, was interrogated and found to have normal function, detection was programmed off.
Ultrasound Guidance performed by mn was utilized for femoral venous Vascular Access b/l.
A decapolar CS catheter was placed within the CS for mapping and pacing.
The intracardiac ultrasound catheter was positioned in the RA for continuous intracardiac ultrasound imaging.
Heparin bolus and infusion to target ACT at 300 -350 seconds was administered. Transseptal puncture was performed. This entailed advancing a sheath with dilator into the superior vena cava and withdrawing both (monitoring intracardiac ultrasound,
fluoroscopy and tip pressure) with the tip oriented toward the atrial septum. The fossa ovalis was engaged (indicated by sudden displacement of the sheath tip as well as tenting of the fossa seen on intracardiac ultrasound).
AcQCross transseptal system was used. Left atrial catheter position was confirmed by echocardiographic imaging, pressure monitoring (LA mean pressure 24 mm Hg) and fluoroscopy. The sheath was advanced over the dilator and positioned in the left
atrium.
The multipolar mapping catheter was initially positioned through the transseptal sheath for high density mapping.
Geometry and voltage mapping was performed using the FixMeStick multipolar grid catheter. Navex was utilized for three-dimensional electroanatomical mapping.
A 3-D map was created using Navex. A 3-D reconstructed CT image was compared to the 3-D Navex map to assist in anatomic evaluation, mapping and ablation.
This demonstrates reconnection at the right superior pulmonary vein towards its septal superior quadrant. There is also marked fractionation of the posterior wall of the left atrium.
The Itaro Pulse Select PFA catheter and system was used for cardiac ablation. Catheter positioning was guided and confirmed using both I.C.E. and fluoroscopy.
Ablation involved reisolation of the right sided superior pulmonary vein and then additional ablation lesion set consisting of wider area circumferential ablation around the right sided pulmonary veins anteriorly and also isolation of the posterior
wall of the left atrium.
Remapping with the Vogt multipolar grid catheter found wide area circumferential ablation around each of the pulmonary veins (left superior, left inferior, right superior, right middle and right inferior) as well as full electrical isolation of
the posterior wall of the left atrium. Programmed electrical stimulation was unable to induce any arrhythmias post ablation.
Interrogation of the BILL DISTRIBUTOR defibrillator, Medtronic, found to have normal function and ICD detection is reprogrammed on. There is no change in the fluoroscopic appearance of the leads.
I.C.E. :
Pre-Ablation Post-Ablation
LVEF: 10 % 10 %
WMA: none none
Pericardial effusion: none none
COMPLICATIONS:
None
SUMMARY:
- Mapping and ablation to isolate the PVs
- Additional AF ablation set after PVI.
- 3-D Electroanatomical Mapping
- Intracardiac Ultrasound
- Left atrial pressure assessed at time of transseptal and prior to ablation demonstrates elevated filling pressures with left atrial pressure of 24 mmHg.
- Interrogation and reprogramming of BILL DISTRIBUTOR defibrillator
Post ablation, I discussed today's findings and results with the patient's.
RECOMMENDATIONS:
- Observe in monitored bed.
- Maintain oral anticoagulation.
- Continue dofetilide
- 40 mg of IV Lasix for volume overload
- Office visit with me in 3 months.
Copy to: Dr Brendan Webber
--- NOTE | 2023-11-11 16:19 | PTCARENOTE ---
pt received in bed from labor arbitrator. pt AOx3, VS stable. B/L Femoral sites clean, dry and intact. at bedside to assist in answering admission questions. continuing to monitor the pt
--- NOTE | 2023-11-11 16:41 | CM ---
CM following for DC planning needs.
Met w/ patient and spouse at bedside to complete initial assessment.
Pt. resides w/ spouse in a private, split level home.
He is functionally indep. w/ use of a RW at baseline.
Spouse informs that patient has been weak since having Covid in the winter. She feels that he will benefit from some therapy at DC. Agreed to discuss in the AM since patient was feeling sleepy.
Pt. may benefit from home PT. Will follow and initiate referrals as needed.
[2023-11-11] MEDS: ELIQUIS 5 MG PO (19:43)
[2023-11-11] MEDS: COREG 6.25 MG PO (19:43)
[2023-11-11] MEDS: TIKOSYN 250 MCG PO (19:43)
--- NOTE | 2023-11-12 00:21 | PTCARENOTE ---
Received pt at handoff. AOx3. Assessment noted as documented. L groin site w/ small amt sanguineous drg noted on dsg. R groin is c/d/i and ecc. No hematoma noted. +2 b/l pulses. Pt is currently in bed; call michael w/in reach.
[2023-11-12 03:45] VITALS: BP 108/80
[2023-11-12 04:03] LABS: Hematocrit 40.2 % (39.0-52.0); Hemoglobin 13.3 g/dL (13.0-18.0); Mean Corp Hgb Conc. 33.1 g/dL (33.0-37.0); Mean Corpuscular Hgb 29.8 pg (27.0-31.0); Mean Corpuscular Volume 90.1 fL (80.0-94.0); Mean Platelet Volume 11.5 fL (7.4-10.4); Platelet Count 109 10^3/uL (130-400); Red Blood Cell Count 4.46 10^6/uL (4.70-6.10); Red Cell Dist. Width 17.2 % (11.5-14.5); White Blood Cell Count 10.7 10^3/uL (4.8-10.8)
[2023-11-12 04:51] LABS: Blood Urea Nitrogen 48 mg/dl (9-20); Calcium 8.9 mg/dl (8.4-10.2); Carbon Dioxide 24 mmol/L (22-30); Chloride 101 mmol/L (98-107); Estimated Creatinine Clearance 95 ml/min; Glucose 127 mg/dl (70-99); Magnesium 1.9 mg/dl (1.6-2.3); Potassium 4.3 mmol/L (3.5-5.1); Sodium 134 mmol/L (135-145); eGFR > 60.00
[2023-11-12 07:54] VITALS: BP 113/84
[2023-11-12] MEDS: ZOLOFT 75 MG PO (09:01)
[2023-11-12] MEDS: COREG 6.25 MG PO (09:03)
[2023-11-12] MEDS: ELIQUIS 5 MG PO (09:03)
[2023-11-12] MEDS: TIKOSYN 250 MCG PO (09:03)
[2023-11-12] MEDS: PEPCID 20 MG PO (09:04)
[2023-11-12] MEDS: FLUSH (NSS) 1 FLUSH IV (09:04)
--- NOTE | 2023-11-12 09:14 | W.PN.CARDCBS ---
Today's Communication / Plan
-
stable for d/c home
Impression / Plan
-
PCP: Brendan Webber DO
CDY: Fausto Floyd MD
Impression:
Symptomatic persistent Afib prior PVI 2016
post redo PVI/PFA 11/11/23
acute on chronic HFrEF 15-20%
Hyperlipidemia
Ventricular tachycardia.
Status post pacemaker insertion, 2010, upgrade to Medtronic implantable defibrillator, 2011, and subsequent ICD battery generator changes 2013, 2017, and 2021.
GERD
CKD3b
CAD PCI 2000
moderate-severe MR
Former smoker/Emphysema on CT 2016
Osteoarthritis, status post left total hip arthroplasty 2018.
COVID , 04/2023, with residual muscle weakness, fatigue, and nausea.
Depression
Mild leukocytosis, asymptomatic.
Fatty liver disease with chronically elevated transaminases.
Plan:
post redo PVI 11/11/23
groins soft with ecchymosis
tele [facility]
elevated RA pressures, IV lasix x1 yesterday, resume PO lasix this am
OAC Eliquis
Decrease carvedilol to bid
continue dofetilide
Activity restrictions reviewed
f/u Dr. Rene 2 mo
home today with [facility]/home PT
Progress Note - Menu Planner
Subjective
Date of Service: November 12, 2023
no cp, sob
Objective
Labs:
11/12/23 03:56
11/12/23 03:56
Labs
Hgb 13.3 g/dL (13.0-18.0) 11/12/23 03:56
Hct 40.2 % (39.0-52.0) 11/12/23 03:56
Plt Count 109 10^3/uL (130-400) L 11/12/23 03:56
PT 29.5 Sec (11.4-14.6) H 10/28/23 10:52
INR 2.76 10/28/23 10:52
Sodium 134 mmol/L (135-145) L 11/12/23 03:56
Potassium 4.3 mmol/L (3.5-5.1) 11/12/23 03:56
BUN 48 mg/dl (9-20) H 11/12/23 03:56
Creatinine 0.7 mg/dL (0.7-1.3) 11/12/23 03:56
Glucose 127 mg/dl (70-99) H 11/12/23 03:56
Vital Signs and I&O:
Vital Signs
Temp Pulse Resp BP Pulse Ox
98.4 F 76 16 113/84 97
11/12/23 07:52 11/12/23 08:30 11/12/23 07:52 11/12/23 07:54 11/12/23 07:52
Vital Signs
Temp Pulse Resp BP Pulse Ox
98.4 F 76 16 113/84 97
11/12/23 07:52 11/12/23 08:30 11/12/23 07:52 11/12/23 07:54 11/12/23 07:52
Intake & Output
11/10/23 11/11/23 11/12/23 11/13/23
06:59 06:59 06:59 06:59
Intake Total 150 / 150
Output Total 800 / 800
Balance -650 / -650
Physical Exam
Physical Exam
NAD< AOX3
S1, s2, RRR, III/ SHAVONNE at apex
CTAB, non labored
SNTND Bsx4
b/l groins soft, no HT, mod ecchymosis R>L wrapping around hip
[2023-11-12 09:38] VITALS: BMI 20.9
--- NOTE | 2023-11-12 09:39 | PTCARENOTE ---
Received patient this morning resting in bed. Left groin site dressing intact with some old drainage noted. Right groin site is clean, dry and intact. Bilateral groins are very ecchymotic but soft with palpable pedal pulses. Patient is apparently
very weak at baseline after dealing with long haul covid. Sat at the side of the bed a while and then assisted by PCT with the rolling walker to the chair. Patient is for discharge today, is aware.
[2023-11-12 11:33] VITALS: BP 111/78
--- NOTE | 2023-11-12 13:42 | W.DS.TRANS ---
DC Summary - Field Radio Technician
-
Discharge Instructions:
Sleep Apnea Risk Intermediate
Discharge Diagnosis/Procedures AFib, post ablation
Diet Low Cholesterol,2 Gram Sodium
Driving Restrictions No driving for 24 hours
Specialty Instructions Weigh Daily
Instructions:
Stand-Alone Forms: DC Instructions- Cath/EP Lab
Changes to Home Medications: Yes
Discharge Medications:
DC Medications w/original date entered in [facility]
sertraline 50 mg tablet 75 mg PO DAILY 09/27/09
apixaban 5 mg tablet (Eliquis) 5 mg PO BID 09/07/23
famotidine 20 mg tablet 20 mg PO DAILY 09/07/23
dofetilide 250 mcg capsule (Tikosyn) 250 mcg PO Q12H #60 caps 09/12/23
cholecalciferol (vitamin D3) 50 mcg (2,000 unit) capsule (Vitamin D3) 50 mcg PO DAILY 10/23/23
carvedilol 6.25 mg tablet 6.25 mg PO BID #0 tabs 11/12/23
furosemide 40 mg tablet 40 mg PO DAILY 30 days #90 tabs 11/12/23
Home Medication Changes
decrease carvedilol to bid from tid
Pending Results: No
--- NOTE | 2023-11-12 13:57 | CM ---
Addendum entered by AWA Weiss 11/12/23 14:21:
[facility] able [facility] accept.
Original Note:
CM following for DC planning needs.
Pt. for DC today.
Met w/ patient and spouse at bedside today to review DC plans.
Both are in agreement with [facility]N. Spouse prefers [facility]. Second preference is [facility].
Referral made to [facility], awaiting acceptance.
Goal is for home w/ [facility], await acceptance.
--- NOTE | 2023-11-12 14:18 | PTCARENOTE ---
Reviewed discharge instructions with the patient and his and they state their understanding. Patient discharged home with [facility] services.
== END 2023-11-12 14:56 | disposition home or self-care (01) ==
LOC: CATH 10:26
PROVIDERS: Nurse Practitioner; ATTENDING PHYSICIAN Internal Medicine Cardiovascular Disease; FAMILY PHYSICIAN Family Medicine
DX: I48.0 Paroxysmal atrial fibrillation (principal); I25.5 Ischemic cardiomyopathy; I47.20 Ventricular tachycardia, unspecified; E78.5 Hyperlipidemia, unspecified; I25.10 Atherosclerotic heart disease of native coronary artery without angina pectoris; Z95.5 Presence of coronary angioplasty implant and graft; N18.30 Chronic kidney disease, stage 3 unspecified; I50.22 Chronic systolic (congestive) heart failure; Z95.0 Presence of cardiac pacemaker; I08.1 Rheumatic disorders of both mitral and tricuspid valves; K21.9 Gastro-esophageal reflux disease without esophagitis; K76.0 Fatty (change of) liver, not elsewhere classified; Z85.828 Personal history of other malignant neoplasm of skin; Z86.018 Personal history of other benign neoplasm; Z87.891 Personal history of nicotine dependence; Z79.01 Long term (current) use of anticoagulants
CPT/HCPCS: C1732; C1894; C1733; C1769; C1730; C1892; C1759; 36415; 76937; 80048; 80053; 83735; 85025; 85027; 85347; 85610; 86850; 86900; 86901; 93005; 93656; 93657

== ENCOUNTER 2023-12-06 21:26 | Inpatient (IN) | payer OTHER, SELFPAY ==
[2023-12-06] VITALS (9 sets, daily range): BP systolic 91–127; BP diastolic 75–115; BMI 21.0
[2023-12-06 16:12] LABS: % Basophils 0.2 % (0-2); % Immature Granulocytes 0.5 % (0-0.5); % Monocytes 2.6 % (1.7-9.3); % Neutrophils 94.7 % (42.2-75.2); Absolute Immature Granulocytes 0.1 10^3/uL (0-0.05); Absolute Lymphocytes 0.4 10^3/uL (1.2-3.4); Absolute Monocytes 0.5 10^3/uL (0.1-0.6); Absolute Neutrophils 17.6 10^3/uL (1.4-6.5); Hematocrit 43.1 % (39.0-52.0); Hemoglobin 14.5 g/dL (13.0-18.0); Mean Corp Hgb Conc. 33.6 g/dL (33.0-37.0); Mean Corpuscular Hgb 29.2 pg (27.0-31.0); Mean Corpuscular Volume 86.9 fL (80.0-94.0); Mean Platelet Volume 11.3 fL (7.4-10.4); Nucleated Red Blood Cells % 0 % (-); Platelet Count 220 10^3/uL (130-400); Red Blood Cell Count 4.96 10^6/uL (4.70-6.10); Red Cell Dist. Width 18.5 % (11.5-14.5); White Blood Cell Count 18.6 10^3/uL (4.8-10.8)
[2023-12-06 16:25] LABS: ALT (SGPT) 24 U/L (0-50); AST (SGOT) 33 U/L (17-59); Albumin 3.1 g/dl (3.5-5.0); Blood Urea Nitrogen 43 mg/dl (9-20); Carbon Dioxide 23 mmol/L (22-30); Glucose 114 mg/dl (70-99); Potassium 3.9 mmol/L (3.5-5.1); Total Protein 6.1 g/dl (6.3-8.2); eGFR > 60.00
[2023-12-06 16:33] LABS: Alkaline Phosphatase 102 U/L (38-126); Calcium 8.8 mg/dl (8.4-10.2); Chloride 92 mmol/L (98-107); Sodium 129 mmol/L (135-145)
--- NOTE | 2023-12-06 17:40 | ED.GENMED ---
History of Present Illness
General
Chief Complaint: Skin Problem
Source: patient
Exam Limitations: none
Time Seen by Provider: 12/06/23 17:06
Nursing documentation reviewed up to this point in time: agreed with
History of Present Illness
History of Present Illness:
73-year-old male with past medical history as documented who presents to the emergency room for evaluation of swelling, pain, drainage/weeping from the left leg. Patient was just admitted to this hospital 11/11/2023 until 11/12/[address] Floyd. He presents today to the emergency room complaining of swelling and pain in the left leg that has been ongoing for the past few days and generally worsening. Patient has had generalized weakness and deconditioning/ambulatory
dysfunction; he ambulates with a walker. He is receiving home physical therapy. Last weekend he apparently got up with his 's assistance and stumbled and fell; she was able to catch him before he fell all the way to the ground but he did not
fall on top of his legs. He did not notice any immediate pain in his legs and in fact this week did multiple sessions of physical therapy without any issue. Over the past few days patient has noticed increasing swelling in the left leg and
increasing pain in the left calf. He has significant color change�leg now appears reddish-purple. reports that his leg has been seeping/weeping yellowish fluid. Discussed with PCP who referred to the emergency room to be assessed. Denies
any chest pain or shortness of breath. Denies any fevers or chills. He denies any other complaints. He is on Eliquis and reports compliance.
Past History
Past History
ED Past Medical History: Arrthythmia and CHF
Social History
Tobacco: Former smoker
Review of Systems
Review of Systems
All Other Systems: ROS reviewed and negative except as documented in HPI and ROS
Constitutional: Denies fever or chills
Respiratory: Denies trouble breathing
Cardiac: Denies chest pain
ABD/GI: Denies abdominal pain, nausea or vomiting
: Denies flank pain
Musculoskeletal: Reports muscle pain (Leg pain) and edema; Denies neck pain or back pain
Skin: Reports rash
Neurological: Denies dizzy or headache
Phy Exam
Physical Exam
Physical Exam:
General: Awake, alert, oriented x3; no acute distress
Head: Normocephalic, atraumatic
Eyes: Conjunctiva normal
Throat: Airway intact, handling secretions
Neck: Trachea midline, no JVD
Lungs: Clear to auscultation bilaterally, no wheezing, rales, rhonchi
Heart: Tachycardia with regular rhythm, no murmurs, gallops, or rubs
Abd: Soft, non distended, nontender
Neuro: No gross deficits
Skin: Patient has minor abrasions of varying ages on both lower legs; he has a large area of purplish discoloration extending from lateral aspect of the distal left thigh down towards the left ankle; area is not warm but is tender to the touch; no
induration, no fluctuance, no crepitus; serous weeping from left lower leg
Extremities: +2 pitting edema left lower extremity, no edema right lower extremity, good pulses in all extremities specifically he has strong DP and PT pulse by Doppler left lower extremity
Scores
Heart Failure Risk
Heart Failure Risk Score: Not Applicable
Heart Score for Chest Pain Patients
STEMI patient?: Not applicable
Withdrawal Assessment of Alcohol
Withdrawal Assessment Completed?: Not applicable
Course
Orders/Labs/Results
Orders:
Orders
12/06/23 16:06
Complete Blood Count/With Diff Urgent
Comprehensive Metabolic Panel Urgent
12/06/23 17:13
US Periph Venous LOWER Ext LT Urgent
Comment:
Reason For Exam: swelling, redness, pain
12/06/23 17:39
Interrogate Pacemaker- Treatment ONCE
12/06/23 20:40
CeFAZolin 2 GRAM [Ancef] 2 grams in 10 ml IV NOW
Abnormal Lab Results
12/06/23
16:06
WBC 18.6 H 10^3/uL
(4.8-10.8)
RDW 18.5 H %
(11.5-14.5)
MPV 11.3 H fL
(7.4-10.4)
Abs Immat Gran (auto) 0.1 H 10^3/uL
(0-0.05)
Absolute Neuts (auto) 17.6 H 10^3/uL
(1.4-6.5)
Absolute Lymphs (auto) 0.4 L 10^3/uL
(1.2-3.4)
Neutrophils % 94.7 H %
(42.2-75.2)
Lymphocytes % 2.0 L %
(20.5-51.1)
Sodium 129 L mmol/L
(135-145)
Chloride 92 L mmol/L
(98-107)
BUN 43 H mg/dl
(9-20)
Glucose 114 H mg/dl
(70-99)
Total Bilirubin 3.0 H mg/dl
(0.2-1.3)
Total Protein 6.1 L g/dl
(6.3-8.2)
Albumin 3.1 L g/dl
(3.5-5.0)
12/06/23 16:06
12/06/23 16:06
Vital Signs
Initial and Last Documented VS:
Initial Vital Signs
Temp Pulse Resp BP Pulse Ox
36.8 C 107 16 109/79 98
12/06/23 15:53 12/06/23 15:53 12/06/23 15:53 12/06/23 15:53 12/06/23 15:53
Last Documented Vital Signs
Temp Pulse Resp BP Pulse Ox
36.8 C 106 14 116/89 98
12/06/23 15:53 12/06/23 20:00 12/06/23 20:00 12/06/23 20:00 12/06/23 20:00
MDM/Problems Addressed
Differential Diagnosis Includes:
Cellulitis, hematoma, DVT
MDM/Problems Addressed:
73-year-old male presents to the emergency room for evaluation of left leg swelling, pain, discoloration and weeping. Onset over the past few days, he did have a recent minor fall last week but denies specifically injuring leg at the time. He is
on Eliquis. Mildly tachycardic but otherwise normal vitals. Physical exam as above. Plan to check basic lab work including CBC and CMP. Will check a left lower extremity ultrasound. Will reassess after the above--clinical appearance seems to be
most consistent with large left leg hematoma rather than acute infectious process.
Labs reviewed and significant for marked leukocytosis to 18.6. Left lower extremity ultrasound shows no DVT, Cyr's cyst, no other acute abnormalities. While the area is not warm and is more purpleish than erythematous with his significant
leukocytosis and relatively rapid onset without direct physical trauma or injury I do think he should be covered for possible cellulitis and will admit for observation on antibiotics and trending of lab work. Case discussed with hospitalist for
admission.
Chronic conditions affecting care:
History of A-fib on Eliquis
*Radiology
Radiology exam reviewed: radiology read reviewed
*Pulse Oximetry
Patient hypoxic: no
*Critical Care Note
Total Time (30-74mins, 75-104mins- exclusive of procedures): Not Applicable
Data Reviewed
Review of Other/Old Records Reveals: Labs and Records
Source: patient, records and spouse
ED Attending Note
-
Portions of this chart may have been created with voice recognition software.� Occasional wrong word or��sound alike� substitutions may have occurred due to the inherent limitations of voice recognition software.
Discharge Plan
Departure
Patient Disposition: Admit
Date of Disposition: 12/06/23
Time of Disposition: 20:40
Admit to doctor: [facility]
Presentation/result/management discussed w/ accepting MD/DO: Hospitalist
Discharge Problem:
Cellulitis of left leg
Prescriptions:
No Action
sertraline 50 MG tablet
75 mg PO DAILY
famotidine 20 mg Tablet
20 mg PO DAILY
Eliquis 5 mg Tablet
5 mg PO BID
dofetilide [Tikosyn] 250 mcg capsule
250 mcg PO Q12H Qty: 60 0RF
cholecalciferol (vitamin D3) [Vitamin D3] 50 mcg (2,000 unit) Capsule
50 mcg PO DAILY
carvedilol 6.25 MG tablet
6.25 mg PO BID Qty: 0 0RF
furosemide 40 mg Tablet
40 mg PO DAILY 30 Days Qty: 90 5RF
Referrals:
Brendan Webber DO [Family Provider] -
Interventions
Interventions:
ED- Fall Risk Assessment Last Done: 12/06/23 18:06
ED-Skin Assessment Last Done: 12/06/23 18:06
Discharge Date and Time
Print Language: CONGOLESE
[2023-12-06] MEDS: ANCEF 10 IV (20:49)
--- NOTE | 2023-12-06 20:56 | HPS.HSE ---
Family Physician
-
Family Physician: Brendan Webber
Chief Complaint
-
left Le pain, redness and swelling
History of Present Illness
73 year old with PMH for CHF, COVid ,atrial fib, CADm CKD, GERD, Depression resents to the emergency room for evaluation of swelling, pain, drainage/weeping from the left leg since the fall last week. he was doing good for two days after the fall,
but noted worsening, swelling, weeping from the left LE.He has significant color change�leg now appears reddish-purple. denied fever, chills, chest pain, sob. denied RUSSO, dizzy or syncopal episode. denied abdominal pain, n,v,d. denied dysuria or
hematuria. fall occurred as he lost the balance while his was getting him to sofa from bed. patient stated long COVID and deconditioned since then. he uses walker to ambulate.
received iv Ancef in ER. admitting for further management.
Medical History
Past Medical History
Past Medical History: Reports Other
Additional Past Medical History:
1. Paroxysmal atrial fibrillation, status post pulmonary vein isolation, 09/2016, and cardioversion x3; pharmacological therapy with Dofetilide and Carvedilol, oral anticoagulation with Eliquis.
2. Ventricular tachycardia.
3. Hyperlipidemia.
4. Coronary artery disease, status post PCI with stent x2 09/2000.
5. Chronic systolic heart failure, reduced ejection fraction.
6. Ischemic cardiomyopathy.
7. Status post pacemaker insertion, 2010, upgrade to Medtronic implantable defibrillator, 2011, and subsequent ICD battery generator changes 2013, 2017, and 2021.
8. Moderate-severe mitral regurgitation.
9. Moderate tricuspid regurgitation.
10. Abdominal aortic aneurysm, 4.2 cm on imaging 08/2023.
11. Emphysema noted on chest CT 09/2016.
12. Chronic postnasal drip.
13. Chronic kidney disease, stage 3.
14. GERD.
15. Hiatal hernia.
16. Colon polyps.
17. Cholelithiasis, asymptomatic.
18. Fatty liver disease with chronically elevated transaminases.
19. Right adrenal gland adenoma.
20. Osteoarthritis, status post left total hip arthroplasty 2018.
21. Multilevel degenerative disc disease.
22. Basal cell carcinoma, face, status post excision.
23. Mild anemia.
24. Depression.
25. COVID 04/2023, with residual muscle weakness, fatigue, and nausea.
26. Mild leukocytosis, asymptomatic.
27. Chronic, mild hyponatremia.
28. Remote history of tobacco abuse.
Past Surgical History: Reports Other
Additional Past Surgical History:
1. Pulmonary vein isolation.
2. DOUGLAS-guided cardioversion x3.
3. Paacemaker insertion.
4. Upgrade to NanoOptotronic ICD.
5. ICD battery generator change x3.
6. PCI with stent x2.
7. Left total hip arthroplasty.
8. Left elbow surgery.
9. Pilonidal cystectomy.
10. Bilateral cataract extraction.
11. Colonoscopy.
Social History
Tobacco: Non-smoker
Alcohol: None
Drug: None
Personal:
Living: With Family
Family History
Family History: Not pertinent
Allergies / Home Medications
Allergies reflects when Allergies were last updated in [facility] [place].
Home Medications with original date entered in [facility] [place]
Allergy/Medication List:
Allergies
Allergy/AdvReac Type Severity Reaction Status Date / Time
enalapril [Enalapril] Allergy lip, Verified 12/06/23 15:56
tongue and
other body
swelling
Home Medications
sertraline 50 mg tablet 75 mg PO DAILY 09/27/09
apixaban 5 mg tablet (Eliquis) 5 mg PO BID 09/07/23
famotidine 20 mg tablet 20 mg PO DAILY 09/07/23
dofetilide 250 mcg capsule (Tikosyn) 250 mcg PO Q12H #60 caps 09/12/23
cholecalciferol (vitamin D3) 50 mcg (2,000 unit) capsule (Vitamin D3) 50 mcg PO DAILY 10/23/23
carvedilol 6.25 mg tablet 6.25 mg PO BID #0 tabs 11/12/23
furosemide 40 mg tablet 40 mg PO DAILY 30 days #90 tabs 11/12/23
Review of Systems
-
Constitutional: Reports No Symptoms
EENT: Reports No Symptoms
Respiratory: Reports No Symptoms
Cardiac: Reports No Symptoms
Abdomen/GI: Reports No Symptoms
: Reports No Symptoms
Musculoskeletal: Reports No Symptoms
Skin: Reports Other (left LE redness, swelling, draining)
Neurological: Reports No Symptoms
Endocrine: Reports No Symptoms
Hematologic/Lymphatic: Reports No Symptoms
Psych: Reports No Symptoms
Physical Exam
Vital Signs
Vital Signs
Temp Pulse Resp BP Pulse Ox
98.2 F 106 14 116/89 98
12/06/23 15:53 12/06/23 20:00 12/06/23 20:00 12/06/23 20:00 12/06/23 20:00
Physical Exam
General: Well Developed, Well Nourished and No Apparent Distress
HEENT: NormoCephalic, Moist mucous membranes and Atraumatic
Respiratory: Clear
Cardiac: S1/S2 and Regular Rhythm; No Murmur or Rub
GI: Soft, Non Tender, Non Distended and Normal Bowel Sounds; No Organomegaly
Rectal: Deferred by Provider
Musculoskeletal: No Clubbing, No Cyanosis and No Edema
Skin: Rash and Other (left LE red, swollen, weeping)
Neuro: AO x 3 and Nonfocal/grossly intact
Psych: Calm
Laboratory Results
-
12/06/23 16:06
07/21/24 16:06
Laboratory Results
Total Bilirubin 3.0 mg/dl (0.2-1.3) H 12/06/23 16:06
AST 33 U/L (17-59) 12/06/23 16:06
ALT 24 U/L (0-50) 12/06/23 16:06
Alkaline Phosphatase 102 U/L (38-126) 12/06/23 16:06
Data Reviewed
-
Lab Data: Labs Reviewed by me
Impression/Plan
-
#left LE pain and swelling likely cellulitis
-wbc 18.6
-cefazolin continued
-will obtain X ray of ankle
-Tylenol prn for pain
-PT/OT consult
-duplex with no evidence of DVT
-will obtain X ray of left ankle due to limited ROM
-keep extremity elevated
#acute on chronic hyponatremia
-na 129
-hold diuretics
-monitor BMP in am
#hxt of symptomatic atrial fib
-PVI/PFA on 11/11/2023
-eliquis continued
-tikosyn continued
# chronic HFrEF 15-20%
-patient not in acute exacerbation
-hold lasix
-strict I & O
-daily weight
#anxiety/depression
-sertraline continued
#GERD
-PPI continued
#DVT prophylaxis
-eliquis
#CODE status
-full code
--- NOTE | 2023-12-06 22:56 | PTCARENOTE ---
Patient arrived to unit around 22:45 via stretcher with dx of cellulitis. AAOX3. Pleasant and cooperative with care. Oriented to unit. Call rodriguez within reach.
[2023-12-06] MEDS: TIKOSYN 250 MCG PO (23:43)
[2023-12-07] VITALS (7 sets, daily range): BP systolic 93–116; BP diastolic 57–81; BMI 21.0
[2023-12-07] MEDS: ANCEF 10 IV ×3 (04:14→21:05)
[2023-12-07 08:18] LABS: Hematocrit 43.7 % (39.0-52.0); Hemoglobin 14.7 g/dL (13.0-18.0); Mean Corp Hgb Conc. 33.6 g/dL (33.0-37.0); Mean Corpuscular Hgb 29.6 pg (27.0-31.0); Mean Corpuscular Volume 88.1 fL (80.0-94.0); Mean Platelet Volume 12.2 fL (7.4-10.4); Platelet Count 199 10^3/uL (130-400); Red Blood Cell Count 4.96 10^6/uL (4.70-6.10); Red Cell Dist. Width 18.6 % (11.5-14.5); White Blood Cell Count 18.3 10^3/uL (4.8-10.8)
[2023-12-07 08:30] LABS: Blood Urea Nitrogen 44 mg/dl (9-20); Calcium 8.5 mg/dl (8.4-10.2); Carbon Dioxide 23 mmol/L (22-30); Chloride 95 mmol/L (98-107); Estimated Creatinine Clearance 81 ml/min; Glucose 80 mg/dl (70-99); Potassium 3.4 mmol/L (3.5-5.1); Sodium 130 mmol/L (135-145); eGFR > 60.00
[2023-12-07] MEDS: ZOLOFT 75 MG PO (08:35)
[2023-12-07] MEDS: PEPCID 20 MG PO (08:36)
[2023-12-07] MEDS: ELIQUIS 5 MG PO ×2 (08:36→21:05)
--- NOTE | 2023-12-07 09:23 | W.PN.HOSP.TC ---
Today's Communication/Plan
-
IV antibiotics
Follow WBC.
Wound care.
Physical therapy assessment
Hold Lasix.
Check urine awesome.
Replete potassium.
Hold Tikosyn pending cardiology evaluation
Assessment / Plan
Assessment / Plan
Impression:
Left lower extremity cellulitis with superficial wounds.
General deconditioning.
Acute on chronic hyponatremia.
Hypokalemia potassium 3.4.
Conditions prior to admission:
Recent hospitalization for symptomatic persistent A-fib post redo PVI 11/11/2023.
Anticoagulation with Eliquis
Chronic CHF reduced EF 15-20%
Ventricular tachycardia.
Status post pacemaker insertion 2010/upgrade to Medtronic implantable defibrillator 2011/subsequent ICD battery generator changes .
CAD with PCI.
CKD 3B.
Moderate to severe MR.
Former smoker
Emphysema.
Status post COVID 05/09 with residual muscle weakness/fatigue/nausea
Depression.
Plan:
Left lower extremity cellulitis with superficial wound
No evidence for collection on exam.
No systemic symptoms
Noted with elevated white count WBC 18
Continue antibiotics/cefazolin.
Continue wound care
Left ankle swelling with pain and inability to bear weight.
X-ray negative for fracture.
Acute on chronic hyponatremia.
Suspect secondary relative hypotension as well as loop diuretics
Check urine osmolarity
Hold Lasix monitoring volume status closely.
Continue sertraline with caution
Persistent A-fib
Status post redo PVI 11/11/2023.
Noted with prolonged QTc
Hold Tikosyn.
Correct electrolytes
Consider cardiology consultation.
Continue Eliquis
Chronic CHF reduced EF
Ischemic cardiomyopathy.
Continue Coreg
Hold Eliquis given relatively low BP and hyponatremia. Monitor volume status closely
General deconditioning
Ambulatory dysfunction, multifactorial.
Physical therapy assessment.
Anticipated Discharge: 24 - 48 hours
Subjective/Interval History
-
Date of Service: December 07, 2023
Objective Data
-
Labs:
Laboratory Results
12/07/23
07:26
WBC 18.3 H
Hgb 14.7
Hct 43.7
Plt Count 199
Sodium 130 L
Potassium 3.4 L
Chloride 95 L
Carbon Dioxide 23
BUN 44 H
Creatinine 0.8
Glucose 80
Calcium 8.5
Vital Signs:
Vital Signs
Temp Pulse Resp BP Pulse Ox
96.5 F L 98 16 106/76 95
12/07/23 08:00 12/07/23 08:00 12/07/23 08:00 12/07/23 08:00 12/07/23 08:00
I&O
12/06/23 12/07/23 12/08/23
06:59 06:59 06:59
Intake Total 240 / 240
Output Total 200 / 200
Balance 40 / 40
Physical Exam
-
General: Well Developed and No Apparent Distress
HEENT: Normocephalic, Atraumatic and Moist Mucous Membranes
Respiratory: Clear to Auscultation
Cardiac: Regular Rhythm and S1/S2; Negative Murmur, Rub or Gallop
GI: Soft, Nontender, Nondistended and Normal Bowel Sounds; Negative Organomegaly
Rectal: Deferred by Provider
Musculoskeletal: No Clubbing, No Cyanosis and No Edema
Skin: Negative Rash
Neuro: Nonfocal/Grossly Intact
[2023-12-07] MEDS: TIKOSYN PO (09:44)
[2023-12-07] MEDS: KCL 40 MEQ PO (10:21)
--- NOTE | 2023-12-07 10:51 | WOUNDNOTE ---
L LOWER MEDIAL LEG
--- NOTE | 2023-12-07 10:52 | WOUNDNOTE ---
L LATERAL ANKLE WITH FLASH
--- NOTE | 2023-12-07 10:53 | WOUNDNOTE ---
L ANTERIOR LOWER LEG
--- NOTE | 2023-12-07 10:54 | WOUNDNOTE ---
R LOWER LEG WITH FLASH
--- NOTE | 2023-12-07 10:55 | WOUNDNOTE ---
L UPPER ARM AND ANTECUBE
--- NOTE | 2023-12-07 10:56 | WOUNDNOTE ---
WON RN note: Patient admitted with L leg cellulitis, s/p fall with multiple skin tears.
See H&P for complete history. Lives at home with , has VN.
PMH: A Fib with ablation 10/2023, L rotator cuff injury, CAD-cardiac stents, CHF,IN,PM/ICD, chronic abdominal pain.
Wound Location and type/assessment: Patient admitted with: Multiple skin tears on L arm and legs in various stages of healing. L leg with 2-3+ edema, large serous drainage from skin tears. L heel is blanchable red. Scattered bruising on arms and
legs, dried old skin tears/abrasions on R leg. + palpable pedal pulses, L leg faint due to edema. R heel with dry scab closer to Achilles, not hospital acquired, possibly rubbing from shoe. Patient states he has become increasingly weaker at home
and poor appetite due to nausea. Only able to take few bites of breakfast then had to spit it out. Patient reports he has lost allot of weight recently, can only drink boost during the day. Currently watching fluid intake per nurse. Patient received
sitting in chair with legs elevated, nurse Chyna confirmed sacrum is intact.
Appetite: Poor.
Pressure redistribution devices in place: On Advanta bed, encourage turning. Pillow under calves.
Plan: Local wound care applied to L arm and leg, moisturized R leg. Compression and leg elevation to legs done.
Recommend twice daily dressing changes to L leg until drainage less. Leg elevation on multiple pillows.
Protein supplements- ensure when able. Will order mineral oil for dry skin on R leg daily.
Confirmed orders with Dr. Hollins and updated nurse. Updated care plan and will follow as needed.
Note to case management of equipment requested for discharge: VN if home.
Recommend follow up at wound care center upon discharge.
--- NOTE | 2023-12-07 11:45 | CON.CAR ---
Addendum entered and electronically signed by Liang Sanchez MD 12/07/23 15:59:
I saw and examined the patient.
The INTERIOR WIRER or PA's note was reviewed and I agree with the note.
Comment: General: Well developed, well nourished in NAD.
Neck: Supple, no JVD, HJR, carotids +2 B/L, no bruits bilaterally.
Heart: Non displaced PMI, Reg, tachy, no murmurs, No S3, S4, no rubs.
Lungs: scattered rhonchi
Extremities: No clubbing, cyanosis or edema bilaterally.
Neuro: Grossly nonfocal, awake, alert and oriented x3.
Junior has a h/o chronic systolic chf, persistent afib s/p pvi 2016 with redo in 10/2023, on Tikosyn and chronically anticoagulated with Eliquis, CAD with PCI in 2000, V. tach with Medtronic ICD, reflux disease. He presented with cellulitis and
found to have prolonged QT interval on ECG and cardiology consulted. Review of device reveals sinus rhythm with episodes of atrial tachycardia with also ventricular tracking of atrial tachycardia appropriately.
Will discussed with EP but treatment options are limited. He has already failed amiodarone and may have failed Tikosyn at 250 mcg which may need to be reduced with prolonged QT interval. Will rate control for now. Might need to consider AV
junction ablation at some point.
Original Note:
Consultation
Consultation Request
Date/Time Consultation Requested: 12/07/2023
Date/Time Consultation Performed: 12/07/2023
Requesting Provider: Dr. Hollins
Performing Provider: Mireya Cyr PA-C for Dr. Liang Sanchez
Reason for Consultation: Prolonged QTc
Medical History
-
History of Present Illness:
Patient is a 73-year-old male with past medical history of heart failure with reduced ejection fraction, persistent atrial fibrillation status post PVI ablation 2016 with redo PVI ablation October 2023, antiarrhythmic therapy with Tikosyn, chronic
anticoagulation on Eliquis, CAD with PCI 2000, ventricular tachycardia with Medtronic ICD, CKD, GERD who presented to emergency department 12/06/2023 with complaints of left lower extremity swelling, pain, drainage x 1 week which occurred following a
fall. Patient reports fall occurred when he lost his balance when he was transitioning from his bed to his sofa. He reports he did not hit his head. In the emergency department he was noted to have left lower extremity cellulitis with elevated
white count and started on IV Ancef. Cardiology being asked to see patient for concerns of prolonged QT on Tikosyn. EKG shows ventricular paced rhythm with reported QTc 630 ms. Patient reports in general he has felt weak and has had reduced
appetite ever since dealing with long COVID starting in April 2023. He denies chest pain, shortness of breath, cough, orthopnea or PND
PMH:
Symptomatic persistent Afib
s/p PVI 09/25/16
post redo PVI/PFA 11/11/23
previously on chronic amiodarone, stopped due to elevated LFTs at [facility] 08/30/23
Eliquis OAC
changed from warfarin to Eliquis during admission to [facility] 08/2023
Chronic HFrEF 15-20%
CAD s/p PCI at [facility] 2000
Hyperlipidemia
Ventricular tachycardia
Status post pacemaker insertion, 2010, upgrade to Medtronic implantable defibrillator, 2011, and subsequent ICD battery generator changes 2013, 2017, and 2021.
GERD
CKD3b
moderate-severe MR
Former smoker/Emphysema on CT 2016
Osteoarthritis, status post left total hip arthroplasty 2018.
COVID 04/2023, with residual muscle weakness, fatigue, and nausea.
Depression
Fatty liver disease with chronically elevated transaminases.
AAA
Past Medical History
Past Medical History: Other (in HPI)
Past Surgical History: Cardiac (Medtronic WARE DRESSER-D, PVI ablation 09/2016, redo PVI 11/11/23, PCI 2000) and Orthopedic (status post left total hip arthroplasty 2018)
Social History
Tobacco: Former Smoker
Alcohol: Daily (2-3 beers a day but stopped 2 weeks ago)
Personal:
Living: With Family
Family History
Family History: Other (brother with PPM)
Allergies / Home Medications
Allergy/AdvReac Type Severity Reaction Status Date / Time
enalapril [Enalapril] Allergy lip, Verified 12/06/23 15:56
tongue and
other body
swelling
�Medication �Instructions �Recorded �Confirmed �Type
sertraline 50 mg tablet 75 mg PO DAILY Depression 09/27/09 12/07/23 History
apixaban 5 mg tablet (Eliquis) 5 mg PO BID Blood Clot 09/07/23 12/07/23 History
Prevention/Tx
famotidine 20 mg tablet 20 mg PO DAILY Gastrointestinal 09/07/23 12/07/23 History
Issue
dofetilide 250 mcg capsule 250 mcg PO Q12H #60 caps 09/12/23 12/07/23 Rx
(Tikosyn)
cholecalciferol (vitamin D3) 50 50 mcg PO DAILY Supplement 10/23/23 12/07/23 History
mcg (2,000 unit) capsule (Vitamin
D3)
carvedilol 6.25 mg tablet 6.25 mg PO BID #0 tabs 11/12/23 12/07/23 Rx
furosemide 40 mg tablet 40 mg PO DAILY 30 days #90 tabs 11/12/23 12/07/23 Rx
Review of Systems
-
History Source: Patient
All other systems: Negative unless noted
Physical Exam
Vital Signs
Temp Pulse Resp BP Pulse Ox
96.5 F L 98 16 106/76 95
12/07/23 08:00 12/07/23 08:00 12/07/23 08:00 12/07/23 08:00 12/07/23 08:00
GEN: Frail and chronically ill-appearing, no distress, awake, Ox3
HEENT: supple, anicteric, mmm, poor dentition with missing teeth
LUNGS: CTA bilaterally, no wheezes/rales
CV: Irregularly irregular, tachycardic, S1/S2, 1/6 apical murmur, no rubs or gallops
ABD: soft, BS+, NT/ND
EXT: Trace right lower extremity pedal edema, +2 left lower extremity edema, leg wrapped in Jaswant dressing
NEURO: Gross non-focal
SKIN: No rash, warm, dry, pink
Lab Results
12/07/23 07:26
12/07/23 07:26
Impression / Plan
-
PCP: Brendan Webber DO
CDY: Fausto Floyd MD
Impression:
Presents 12/06/2023 with left lower extremity pain, redness and swelling with concern for cellulitis.
Left lower extremity cellulitis
Leukocytosis
Prolonged QT on ECG
Acute on chronic hyponatremia
Symptomatic persistent Afib
s/p PVI 09/25/16
post redo PVI/PFA 11/11/23
previously on chronic amiodarone, stopped due to elevated LFTs at [facility] 08/30/23
Eliquis OAC
changed from warfarin to Eliquis during admission to [facility] 08/2023
Chronic HFrEF 15-20%
CAD s/p PCI at [facility] 2000
Hyperlipidemia
Ventricular tachycardia
Status post pacemaker insertion, 2010, upgrade to Medtronic implantable defibrillator, 2011, and subsequent ICD battery generator changes 2013, 2017, and 2021.
GERD
CKD3b
moderate-severe MR
Former smoker/Emphysema on CT 2016
Osteoarthritis, status post left total hip arthroplasty 2018.
COVID , 04/2023, with residual muscle weakness, fatigue, and nausea.
Depression
Fatty liver disease with chronically elevated transaminases.
AAA
Echo 08/30/2023([facility]): EF 20% with severe global hypokinesis, mildly dilated LV, moderately dilated LA, moderate MR
Plan:
-Presents 12/06/2023 with left lower extremity pain, redness and swelling with concern for cellulitis and started on IV antibiotics with ancef. Left lower extremity venous Doppler negative for DVT but does show 4.5 cm Cyr's cyst which may also be
contributing some to edema.
-Prolonged QT noted on EKG with QTc 630 ms. EKG reviewed with EP who agrees QT is prolonged. Patient on Tikosyn 250 mcg twice daily as outpatient.
-Would hold Tikosyn, last dose given 12/06/2023
-Avoid QT prolonging agents
-Potassium noted to be 3.4. Would replete; Keep K+ >4, mag >2
-Repeat EKG later this afternoon then daily in am
-History of persistent atrial fibrillation with prior PVI 2016 with redo PVI 11/11/2023. Upon review of telemetry it does appear that patient is going in and out of atrial fibrillation with accelerated ventricular response at times. Also noted to
have NSVT.
-Check check TSH and and magnesium level
-Of note patient had LFT abnormality previously on amiodarone; LFTs are normal
-History of chronic heart failure with reduced ejection fraction. Patient does not appear to be volume overload on examination and in fact appears to be euvolemic. Maintained on Lasix 40 mg daily as outpatient. Currently on hold
-Continue carvedilol. Patient had angioedema previously on JASWANT inhibitor so would avoid JASWANT/ARB. Could consider addition of Aldactone and or SGLT2 inhibitor
Patient is a 73-year-old male with past medical history of heart failure with reduced ejection fraction, persistent atrial fibrillation status post PVI ablation 2016 with redo PVI ablation October 2023, antiarrhythmic therapy with Tikosyn, chronic
anticoagulation on Eliquis, CAD with PCI 2000, ventricular tachycardia with Medtronic ICD, CKD, GERD who presented to emergency department 12/06/2023 with complaints of left lower extremity swelling, pain, drainage x 1 week which occurred following a
fall. Patient reports fall occurred when he lost his balance when he was transitioning from his bed to his sofa. He reports he did not hit his head. In the emergency department he was noted to have left lower extremity cellulitis with elevated
white count and started on IV Ancef. Cardiology being asked to see patient for concerns of prolonged QT on Tikosyn. EKG shows ventricular paced rhythm with reported QTc 630 ms
Data Reviewed
-
EKG: Report Reviewed by me, Discussed with Physician, Discussed with Nurse and Discussed with Patient
Ultrasound: Report Reviewed by me, Discussed with Physician and Discussed with Patient
Labs: Labs Reviewed by me, Discussed with Physician, Discussed with Nurse and Discussed with Patient
Old Records: Reviewed
--- NOTE | 2023-12-07 12:02 | CM ---
Addendum entered by Ya Perera 12/07/23 16:10:
Medicare.gov care compare options given to . Will look at tonight and let CM know which facilities to make referrals.
Addendum entered by Ya Perera 12/07/23 12:28:
Spoke with states she agrees that the patient should go to skilled rehab to get stronger. She will speak with him. He was having [facility] visiting nurse/therapy in the home prior to this hospitalization. Will continue to monitor.
Plan: Discharge to skilled rehab when stable.
Original Note:
IA completed by medical case manager.
Dx: Cellulitis
PMH: CHF, AFIB, CKD, GERD
Lives with in split level. 1 step in home. States he sleeps on 1st floor. Powder room on 1st floor.
PLOF: Was using a walker at home. (has cane, raised toilet seat)
He stated he had a fall at home and states he was receiving VN at home PT/Nursing (does not remember the company-will call spouse)
PT/OT recommended skilled rehab. I discussed this with him and he would prefer to go back home with
VN vs. skilled rehab.
PCP: Brendan Webber
Pharmacy: [facility]
Plan: Skilled rehab vs. Visiting Nurse. PT/OT to cont to follow.
[2023-12-07 14:31] LABS: Magnesium 1.5 mg/dl (1.6-2.3)
[2023-12-07 15:31] LABS: Free T4 2.23 ng/dl (0.78-2.19)
--- NOTE | 2023-12-07 16:17 | PTCARENOTE ---
Pt has voided twice this far , this am. Bladder scan for 128 cc at 1615. Will encourage po intake and send urine specimen when obtained.
--- NOTE | 2023-12-07 16:33 | W.CARD.DEVCH ---
Cardiac Device Check
-
Device: Implanted Cardioverter-Defibrillator
Extrusion Die Template Maker: Medtronic
The patient's device was interrogated with assistance of the device sales representative facility services followed by a complete physician review. The device had normal function. There are episodes of atrial tachycardia with ventricular tracking in the 130's-140 bpm.
Optivol fluid index is elevated suggesting evidence of volume overload.
[2023-12-07] MEDS: MAGNESIUM OXIDE 500 MG PO (17:06)
[2023-12-07] MEDS: TYLENOL 650 MG PO (23:07)
[2023-12-08] VITALS (10 sets, daily range): BP systolic 98–113; BP diastolic 68–84; PULSE 127–128; O2SAT 98; BMI 18.3
[2023-12-08] MEDS: ANCEF 10 IV ×3 (03:05→20:20)
[2023-12-08 07:27] LABS: Hematocrit 45.4 % (39.0-52.0); Hemoglobin 15.6 g/dL (13.0-18.0); Mean Corp Hgb Conc. 34.4 g/dL (33.0-37.0); Mean Corpuscular Hgb 29.7 pg (27.0-31.0); Mean Corpuscular Volume 86.3 fL (80.0-94.0); Mean Platelet Volume 11.6 fL (7.4-10.4); Platelet Count 206 10^3/uL (130-400); Red Blood Cell Count 5.26 10^6/uL (4.70-6.10); Red Cell Dist. Width 18.8 % (11.5-14.5); White Blood Cell Count 19.1 10^3/uL (4.8-10.8)
[2023-12-08 07:58] LABS: Blood Urea Nitrogen 53 mg/dl (9-20); Calcium 8.8 mg/dl (8.4-10.2); Carbon Dioxide 20 mmol/L (22-30); Chloride 96 mmol/L (98-107); Estimated Creatinine Clearance 57 ml/min; Glucose 104 mg/dl (70-99); Magnesium 1.8 mg/dl (1.6-2.3); Potassium 4.4 mmol/L (3.5-5.1); Sodium 130 mmol/L (135-145); eGFR > 60.00
[2023-12-08 08:02] LABS: NT-proBNP > 27000 pg/ml
[2023-12-08] MEDS: HYDROPHOR 1 APPLIC TOPICAL (08:26)
[2023-12-08] MEDS: ZOLOFT 75 MG PO (08:27)
[2023-12-08] MEDS: PEPCID 20 MG PO (08:27)
[2023-12-08] MEDS: ELIQUIS 5 MG PO ×2 (08:27→20:19)
--- NOTE | 2023-12-08 09:35 | PTCARENOTE ---
heart rate has had increased episodes of heart rates greater than 130's, resolves on its own. Patient is asymptomatic, denies any chest pain or discomfort .
[2023-12-08 10:01] LABS: Osmolality Urine 559 mOsm/kg (300-900)
[2023-12-08] MEDS: PROTONIX 20 MG PO (10:08)
[2023-12-08 10:16] LABS: Urine Sodium 7 mmol/L (30-90)
--- NOTE | 2023-12-08 11:33 | W.PN.CARDCBS ---
Addendum entered and electronically signed by Liang Sanchez MD 12/09/23 07:49:
Late entry patient was seen on 12/08/2023
Agustin has a history of permanent atrial fibrillation, left appendage clot on chronic Xarelto, chronic diastolic CHF, hypertension, vasovagal syncope, restrictive lung disease. He suffered a fall while on vacation in the [place] fell out of bed
and hit the back of his head. He subsequent developed headache and found to have a subdural and was at [place]. He was brushing his teeth on the day of admission he became weak and cold and clammy. He was noted to be near syncopal by his .
There also was some slurred speech. He did not have true syncope. It took 30 minutes to resolve. He is admitted for further workup and treatment.
[place] to be likely vasovagal syncope. Will check echocardiogram. Will check orthostatics. Will continue to watch patient on monitor.
Addendum entered and electronically signed by Liang Sanchez MD 12/08/23 12:51:
I saw and examined the patient.
The BONE CRUSHER or PA's note was reviewed and I agree with the note.
Comment: General: Appears cachectic
Neck: Supple, no JVD, HJR, carotids +2 B/L, no bruits bilaterally.
Heart: Non displaced PMI, regular, tachycardic, no murmurs, No S3, S4, no rubs.
Lungs: Scattered rhonchi
Extremities: No clubbing, cyanosis or edema bilaterally.
Neuro: Grossly nonfocal, awake, alert and oriented x3.
He continues with tachycardia which appears to be an atrial tachycardia and also has ventricular pacing which is appropriately tracking and atrial tachycardia. Options are clearly limited as he had abnormal LFTs on amiodarone. Tikosyn is not
working and QT prolonged on this medicine. Will attempt to control atrial tachycardia with higher dose of carvedilol but likely have no other option but to restart amiodarone and follow-up LFTs very closely. We could consider cardioversion later
this week if remains in atrial tachycardia. Of note he is status post PVI on 6/26 and can have some recurrent atrial tachycardia in the first several weeks as part of the healing process. Will hold off on amiodarone for now as we continue to allow
Tikosyn to washout and QT remains mildly prolonged. On another note family has had some interest in palliative care as an outpatient and those discussions will continue. If amiodarone is unsuccessful we could consider AV junction ablation but
should continue to try to keep in sinus rhythm given recent PVI.
Original Note:
Today's Communication / Plan
-
Consider initiation of amiodarone versus cardioversion
Continue antibiotics for cellulitis
Goals of care discussion ongoing
Impression / Plan
-
PCP: Brendan Webber DO
CDY: Fausto Floyd MD
Impression:
Presents 12/06/2023 with left lower extremity pain, redness and swelling with concern for cellulitis.
Left lower extremity cellulitis
Leukocytosis
Prolonged QT on ECG
Acute on chronic hyponatremia
Symptomatic persistent Afib
s/p PVI 09/25/16
post redo PVI/PFA 11/11/23
previously on chronic amiodarone, stopped due to elevated LFTs at [facility] 08/30/23
Eliquis OAC
changed from warfarin to Eliquis during admission to [facility] 08/2023
Chronic HFrEF 15-20%
CAD s/p PCI at [facility]2000
Hyperlipidemia
Ventricular tachycardia
Status post pacemaker insertion, 2010, upgrade to Medtronic implantable defibrillator, 2011, and subsequent ICD battery generator changes 2013, 2017, and 2021.
GERD
CKD3b
moderate-severe MR
Former smoker/Emphysema on CT 2016
Osteoarthritis, status post left total hip arthroplasty 2018.
COVID , 04/2023, with residual muscle weakness, fatigue, and nausea.
Depression
Fatty liver disease with chronically elevated transaminases.
AAA
Echo 08/30/2023([facility]): EF 20% with severe global hypokinesis, mildly dilated LV, moderately dilated LA, moderate MR
Plan:
-Presents 12/06/2023 with left lower extremity pain, redness and swelling with concern for cellulitis and started on IV antibiotics with ancef. Left lower extremity venous Doppler negative for DVT but does show 4.5 cm Cyr's cyst which may also be
contributing some to edema.
-Prolonged QT noted on EKG with QTc 630 ms. EKG reviewed with EP who agrees QT is prolonged. Patient on Tikosyn 250 mcg twice daily as outpatient and placed on hold, last dose given 12/06/2023
-Avoid QT prolonging agents
-Repeat ECG shows improved QTc
-Heart rates remain significantly elevated. Also noted to have hyperthyroidism which may be driving some of the heart rate issues.
-Options limited as hypotension does not allow for up titration of beta-teri. Patient had LFT abnormality previously on amiodarone; LFTs are normal. Could consider allowing for Tikosyn washout then reinitiating amiodarone and attempt for rate
control.
-Interrogation of ICD on 12/07/2023 did show atrial tachycardia with device tracking the A. Could consider cardioversion
-Potassium noted to be 4.4. Magnesium 1.8. Replete; Keep K+ >4, mag >2
-History of persistent atrial fibrillation with prior PVI 2016 with redo PVI 11/11/2023. Upon review of telemetry it does appear that patient is going in and out of atrial fibrillation with accelerated ventricular response at times. Also noted to
have NSVT.
-TSH 0.40, free T4 2.23
-History of chronic heart failure with reduced ejection fraction. Patient does not appear to be volume overload on examination and in fact appears to be euvolemic. Maintained on Lasix 40 mg daily as outpatient. Currently on hold
-Continue carvedilol. Patient had angioedema previously on RADHA inhibitor so would avoid RADHA/ARB. Could consider addition of Aldactone and or SGLT2 inhibitor
-He reports he has been significantly debilitated since having COVID at the end of 2023. Goals of care discussion with patient. He reports his had mentioned hospice palliative care and they would be interested in hearing options
Patient is a 73-year-old male with past medical history of heart failure with reduced ejection fraction, persistent atrial fibrillation status post PVI ablation 2016 with redo PVI ablation October 2023, antiarrhythmic therapy with Tikosyn, chronic
anticoagulation on Eliquis, CAD with PCI 2000, ventricular tachycardia with Medtronic ICD, CKD, GERD who presented to emergency department 12/06/2023 with complaints of left lower extremity swelling, pain, drainage x 1 week which occurred following a
fall. Patient reports fall occurred when he lost his balance when he was transitioning from his bed to his sofa. He reports he did not hit his head. In the emergency department he was noted to have left lower extremity cellulitis with elevated
white count and started on IV Ancef. Cardiology being asked to see patient for concerns of prolonged QT on Tikosyn. EKG shows ventricular paced rhythm with reported QTc 630 ms
Progress Note - Cloth Sander
Subjective
Date of Service: December 08, 2023
Patient seen and examined. Patient in bed reporting he continues to feel very weak and deconditioned and generally unwell.
Objective
Labs:
12/08/23 07:09
12/08/23 07:09
Labs
Hgb 15.6 g/dL (13.0-18.0) 12/08/23 07:09
Hct 45.4 % (39.0-52.0) 12/08/23 07:09
Plt Count 206 10^3/uL (130-400) 12/08/23 07:09
Sodium 130 mmol/L (135-145) L 12/08/23 07:09
Potassium 4.4 mmol/L (3.5-5.1) D 12/08/23 07:09
BUN 53 mg/dl (9-20) H 12/08/23 07:09
Creatinine 1.0 mg/dL (0.7-1.3) 12/08/23 07:09
Glucose 104 mg/dl (70-99) H 12/08/23 07:09
Vital Signs and I&O:
Vital Signs
Temp Pulse Resp BP Pulse Ox
97.6 F 121 18 109/78 97
12/08/23 11:14 12/08/23 11:14 12/08/23 11:14 12/08/23 11:14 12/08/23 11:14
Vital Signs
Temp Pulse Resp BP Pulse Ox
97.6 F 121 18 109/78 97
12/08/23 11:14 12/08/23 11:14 12/08/23 11:14 12/08/23 11:14 12/08/23 11:14
Intake & Output
12/06/23 12/07/23 12/08/23 12/09/23
06:59 06:59 06:59 06:59
Intake Total 240 / 240 600 / 600
Output Total 200 / 200 150 / 150
Balance 40 / 40 450 / 450
Physical Exam
Physical Exam
GEN: Frail and chronically ill-appearing, no distress, awake, Ox3
HEENT: supple, anicteric, mmm, poor dentition with missing teeth
LUNGS: CTA bilaterally, no wheezes/rales
CV: Irregularly irregular, tachycardic, S1/S2, 1/6 apical murmur, no rubs or gallops
ABD: soft, BS+, NT/ND
EXT: No right lower extremity pedal edema, +2 left lower extremity edema, leg wrapped in gauze with serosanguineous drainage leaking through
NEURO: Gross non-focal
SKIN: No rash, warm, dry, pink
[2023-12-08] MEDS: COREG 6.25 MG PO (13:02)
[2023-12-08] MEDS: MAGNESIUM OXIDE 500 MG PO (13:02)
--- NOTE | 2023-12-08 14:29 | CM ---
Addendum entered by Steffanie Cheney 12/08/23 15:30:
Bedside meeting with spouse and dtr per request
They provided SNF choices and role of BC reviewed
TT/Dr Hollins to alert family bedside
He will meet with them to provide update
PASRR and SNF referrals sent via Care POrt in the case pt requires SNF on dc
Original Note:
CM reviewed chart and met with pt bedside
Requested SNF choices
Per pt, considering [facility] now
Discussion with Dr Hollins, plan for discussions with for further GOC considerations
CM will continue to follow for dc planning
Discharge Disposition- TBD
--- NOTE | 2023-12-08 15:58 | W.PN.HOSP.TC ---
Today's Communication/Plan
-
Antibiotics for left lower extremity cellulitis.
Wound care.
Ensure.
Attempt to control rate with increased dose of Coreg.
Hold Lasix given marginal BP monitor volume status closely
Physical therapy assessment.
Assessment / Plan
Assessment / Plan
Impression:
Left lower extremity cellulitis with superficial wounds.
General deconditioning.
Acute on chronic hyponatremia.
Hypokalemia potassium 3.4.
Hypomagnesemia
Conditions prior to admission:
Recent hospitalization for symptomatic persistent A-fib post redo PVI 11/11/2023.
Anticoagulation with Eliquis
Chronic CHF reduced EF 15-20%
Ventricular tachycardia.
Status post pacemaker insertion 2010/upgrade to Medtronic implantable defibrillator 2011/subsequent ICD battery generator changes .
CAD with PCI.
CKD 3B.
Moderate to severe MR.
Former smoker
Emphysema.
Status post COVID 05/09 with residual muscle weakness/fatigue/nausea
Depression.
Moderate protein calorie malnutrition/cachexia with BMI of 18.3
Plan:
Left lower extremity cellulitis with superficial wound
No evidence for collection on exam.
No systemic symptoms
Noted with elevated white count WBC 18
Continue antibiotics/cefazolin.
Continue wound care
Left ankle swelling with pain and inability to bear weight.
X-ray negative for fracture.
Acute on chronic hyponatremia.
Suspect secondary relative hypotension as well as loop diuretics
Check urine osmolarity
Hold Lasix monitoring volume status closely.
Continue sertraline with caution
Persistent A-fib
Status post redo PVI 11/11/2023.
Rate poorly controlled with atrial tachycardia
Noted with prolonged QTc
Hold Tikosyn.
Correct electrolytes
Cardiology input appreciated.
Previously on amiodarone with elevated LFTs. Also noted with mild hyperthyroidism (suppressed TSH elevated free T4, although currently off amiodarone)
Limited options for rate control other than coming back to amiodarone. Need time for Tikosyn washout prior to transition.
Attempt to increase dose of Coreg, although with marginal BP. Monitor closely
Continue Eliquis
Chronic CHF reduced EF
Ischemic cardiomyopathy.
Continue Coreg
Currently off Lasix given marginal BP., Although noted with rising pro CHF BNP. Consider to reintroduce Lasix if blood pressure allows.
General deconditioning
Ambulatory dysfunction, multifactorial.
Physical therapy assessment.
Protein calorie malnutrition. Will add Ensure.
Goals of care discussion with patient and family at the bedside.
Noticed progressive declining over the recent past with ambulatory dysfunction, poor appetite, malnutrition.
They were contemplating palliative approach and hospice, although patient and family currently not ready to transition. They would like to try all possible options in terms of treatment of heart failure and A-fib, attempt of nutritional supplement
and physical therapy with possible rehab at snf facility.
Anticipated Discharge: > 48 hours
Subjective/Interval History
-
Date of Service: December 08, 2023
Objective Data
-
Labs:
Laboratory Results
12/08/23
07:09
WBC 19.1 H
Hgb 15.6
Hct 45.4
Plt Count 206
Sodium 130 L
Potassium 4.4 D
Chloride 96 L
Carbon Dioxide 20 L
BUN 53 H
Creatinine 1.0
Glucose 104 H
Calcium 8.8
Vital Signs:
Vital Signs
Temp Pulse Resp BP Pulse Ox
97.5 F 124 19 103/72 96
12/08/23 14:55 12/08/23 14:55 12/08/23 14:55 12/08/23 14:55 12/08/23 14:55
I&O
12/07/23 12/08/23 12/09/23
06:59 06:59 06:59
Intake Total 240 / 240 600 / 600
Output Total 200 / 200 150 / 150
Balance 40 / 40 450 / 450
Physical Exam
-
General: Well Developed and No Apparent Distress
HEENT: Normocephalic, Atraumatic and Moist Mucous Membranes
Respiratory: Clear to Auscultation
Cardiac: Regular Rhythm and S1/S2; Negative Murmur, Rub or Gallop
GI: Soft, Nontender, Nondistended and Normal Bowel Sounds; Negative Organomegaly
Rectal: Deferred by Provider
Musculoskeletal: No Clubbing, No Cyanosis and No Edema
Skin: Negative Rash
Neuro: Nonfocal/Grossly Intact
[2023-12-08] MEDS: COREG 12.5 MG PO (20:19)
--- NOTE | 2023-12-08 21:47 | W.PN.UPDATE ---
Update Note
Progress Note Update
2044 Notified by RN that HR increased to 200 then with vagal manuever back down to 120.
Pt with complex cardiac hx. Seen by cardiology since admit for elevated rates of atach. Pt with recent pvi october 2023.
Tikosyn caused long qt and was stopped. Last dose 7.0
Coreg increased today to 12.5mg (from 6.25mg)
Discussed pt via TT with Dr Garg. With freq burst to 140s will start amio gtt tonight with NO bolus.
Medication option limited in this complex cardiac pt.
[2023-12-08] MEDS: CORDARONE 518 MG IV (22:27)
[2023-12-09] VITALS (10 sets, daily range): BP systolic 88–104; BP diastolic 54–69; BMI 20.8
[2023-12-09] MEDS: ANCEF 10 IV ×3 (03:01→19:50)
[2023-12-09] MEDS: HYDROPHOR 1 APPLIC TOPICAL (07:48)
[2023-12-09] MEDS: COREG PO ×2 (07:49→19:49)
[2023-12-09] MEDS: ELIQUIS 5 MG PO ×2 (07:49→19:50)
[2023-12-09] MEDS: PROTONIX 20 MG PO (07:49)
[2023-12-09] MEDS: ZOLOFT 75 MG PO (07:49)
--- NOTE | 2023-12-09 09:06 | W.PN.CARDCBS ---
Addendum entered and electronically signed by Liang Sanchez MD 12/09/23 12:12:
I saw and examined the patient.
The [employer]LET[employer] TRAINING [employer] or PA's note was reviewed and I agree with the note.
Comment: General: Well developed, well nourished in NAD.
Neck: Supple, no JVD, HJR, carotids +2 B/L, no bruits bilaterally.
Heart: Non displaced PMI, RRR, no murmurs, No S3, S4, no rubs.
Lungs: Scattered rhonchi
Extremities: No clubbing, cyanosis or edema bilaterally.
Neuro: Grossly nonfocal, awake, alert and oriented x3.
Remains with tachycardia. Appears to be sinus at times however. Now on IV amiodarone drip. Will transition from IV amiodarone to oral amiodarone and load with 400 mg p.o. 3 times daily. Will need to follow QT interval closely as well as LFTs
which were abnormal in the past with amiodarone. If this fails may need to consider AV junction ablation. proBNP is markedly elevated and chest x-ray with CHF. Lasix has been on hold with hypotension but will give IV Lasix 40 mg now. Daughter
was updated.
Original Note:
Today's Communication / Plan
-
Continue amiodarone, transition to PO 400mg TID
Check CXR
Discussed w/ patient's daughter
Impression / Plan
-
PCP: Brendan Webber DO
CDY: Fausto Floyd MD
Impression:
Left lower extremity cellulitis
Leukocytosis
Prolonged QT on ECG
Acute on chronic hyponatremia
Symptomatic persistent Afib
s/p PVI 09/25/16
post redo PVI/PFA 11/11/23
previously on chronic amiodarone, stopped due to elevated LFTs at [facility] 08/30/23
Chronic Tikosyn therapy (stopped 12/06/2023 due to prolonged QTc)
Eliquis OAC
changed from warfarin to Eliquis during admission to [facility] 08/2023
Chronic HFrEF 15-20%
CAD s/p PCI at [facility] 2000
Hyperlipidemia
Ventricular tachycardia
Status post pacemaker insertion, 2010, upgrade to Medtronic implantable defibrillator, 2011, and subsequent ICD battery generator changes 2013, 2017, and 2021.
GERD
CKD3b
moderate-severe MR
Former smoker/Emphysema on CT 2016
Osteoarthritis, status post left total hip arthroplasty 2018.
COVID 19, 04/2023, with residual muscle weakness, fatigue, and nausea.
Depression
Fatty liver disease with chronically elevated transaminases.
AAA
Echo 08/30/2023([facility]): EF 20% with severe global hypokinesis, mildly dilated LV, moderately dilated LA, moderate MR
Plan:
-Presented with LLE pain, redness, and swelling. Being treated for cellulitis w. IV abx. LE US negative for DVT.
-Also noted to have prolonged QT of 630 ms on arrival. Tikosyn stopped (last dose 12/07/2023)
-Noted to have continued episodes of atrial tachycardia and QTc improved as Tikosyn washed out.
-Started on IV amiodarone overnight 12/08. Will transition to PO amiodarone 400mg TID while admitted.
-Follow QTc on EKG.
-HRs appear improved w/ initiation of amiodarone. Continues to have intermittent paroxysms of afib. Will follow w/ amiodarone loading.
-TSH 0.40, free T4 2.23
-History of HFrEF noted. Appears euvolemic. Lasix on hold due to hypotension.
-Patient w/ productive cough noted w/ yellow sputum. Check CXR. Daughter reports he has had chronic post nasal drip since having COVID 04/2023 and has nausea/vomiting related to this at times.
-Continue carvedilol w/ hold parameters. Patient had angioedema previously on RADHA inhibitor so would avoid RADHA/ARB. Could consider addition of Aldactone and or SGLT2 inhibitor as OP if BP allows.
-Called and discussed plan with patient's daughter for 10 minutes and 45 seconds. All questions answered. She reported she will relay message to other family members including patient's .
Patient is a 73-year-old male with past medical history of heart failure with reduced ejection fraction, persistent atrial fibrillation status post PVI ablation 2016 with redo PVI ablation October 2023, antiarrhythmic therapy with Tikosyn, chronic
anticoagulation on Eliquis, CAD with PCI 2000, ventricular tachycardia with Medtronic ICD, CKD, GERD who presented to emergency department 12/06/2023 with complaints of left lower extremity swelling, pain, drainage x 1 week which occurred following a
fall. Patient reports fall occurred when he lost his balance when he was transitioning from his bed to his sofa. He reports he did not hit his head. In the emergency department he was noted to have left lower extremity cellulitis with elevated
white count and started on IV Ancef. Cardiology being asked to see patient for concerns of prolonged QT on Tikosyn. EKG shows ventricular paced rhythm with reported QTc 630 ms
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
Subjective
Date of Service: December 09, 2023
No complaints, however does have productive cough.
Objective
Labs:
Labs
Hgb 15.6 g/dL (13.0-18.0) 12/08/23 07:09
Hct 45.4 % (39.0-52.0) 12/08/23 07:09
Plt Count 206 10^3/uL (130-400) 12/08/23 07:09
Sodium 130 mmol/L (135-145) L 12/08/23 07:09
Potassium 4.4 mmol/L (3.5-5.1) D 12/08/23 07:09
BUN 53 mg/dl (9-20) H 12/08/23 07:09
Creatinine 1.0 mg/dL (0.7-1.3) 12/08/23 07:09
Glucose 104 mg/dl (70-99) H 12/08/23 07:09
Vital Signs and I&O:
Vital Signs
Temp Pulse Resp BP Pulse Ox
98.4 F 82 19 95/69 96
12/09/23 07:36 12/09/23 07:36 12/09/23 07:36 12/09/23 07:36 12/09/23 07:36
Vital Signs
Temp Pulse Resp BP Pulse Ox
98.4 F 82 19 95/69 96
12/09/23 07:36 12/09/23 07:36 12/09/23 07:36 12/09/23 07:36 12/09/23 07:36
Intake & Output
12/07/23 12/08/23 12/09/23 12/10/23
06:59 06:59 06:59 06:59
Intake Total 240 / 240 600 / 600 960 / 960
Output Total 200 / 200 150 / 150 600 / 600
Balance 40 / 40 450 / 450 360 / 360
Physical Exam
Physical Exam
GEN: Frail and chronically ill-appearing, no distress, awake, Ox3
HEENT: supple, anicteric, mmm
LUNGS: CTA bilaterally, no wheezes/rales
CV: Irregularly irregular, S1/S2, 1/6 apical murmur
EXT: No clubbing or cyanosis. +1 RLE edema, LLE w/ RADHA wrap in place.
NEURO: Gross non-focal
SKIN: No rash, warm, dry, pink
[2023-12-09] MEDS: PACERONE 400 MG PO ×3 (12:42→22:59)
[2023-12-09] MEDS: LASIX 40 MG IV (12:42)
[2023-12-09 13:02] LABS: Hematocrit 42.1 % (39.0-52.0); Hemoglobin 14.4 g/dL (13.0-18.0); Mean Corp Hgb Conc. 34.2 g/dL (33.0-37.0); Mean Corpuscular Hgb 29.6 pg (27.0-31.0); Mean Corpuscular Volume 86.6 fL (80.0-94.0); Mean Platelet Volume 11.7 fL (7.4-10.4); Platelet Count 178 10^3/uL (130-400); Red Blood Cell Count 4.86 10^6/uL (4.70-6.10); Red Cell Dist. Width 18.6 % (11.5-14.5); White Blood Cell Count 17.3 10^3/uL (4.8-10.8)
[2023-12-09 13:11] LABS: ALT (SGPT) 12 U/L (0-50); AST (SGOT) 61 U/L (17-59); Albumin 2.7 g/dl (3.5-5.0); Alkaline Phosphatase 108 U/L (38-126); Blood Urea Nitrogen 65 mg/dl (9-20); Calcium 8.7 mg/dl (8.4-10.2); Carbon Dioxide 24 mmol/L (22-30); Chloride 94 mmol/L (98-107); Direct Bilirubin 1.6 mg/dl (0.0-0.4); Estimated Creatinine Clearance 59 ml/min; Glucose 160 mg/dl (70-99); Magnesium 1.9 mg/dl (1.6-2.3); Potassium 3.6 mmol/L (3.5-5.1); Sodium 129 mmol/L (135-145); Total Bilirubin 2.3 mg/dl (0.2-1.3); Total Protein 5.4 g/dl (6.3-8.2); eGFR > 60.00
--- NOTE | 2023-12-09 16:01 | W.PN.HOSP.TC ---
Today's Communication/Plan
-
IV Lasix.
Amiodarone load.
Antibiotics for lower extremity cellulitis.
Physical therapy assessment
Assessment / Plan
Assessment / Plan
Impression:
Persistent atrial fibrillation with rapid ventricular response
Acute CHF reduced EF.
Acute pulmonary edema.
Left lower extremity cellulitis with superficial wounds.
General deconditioning.
Acute on chronic hyponatremia.
Hypokalemia potassium 3.4.
Hypomagnesemia
Conditions prior to admission:
Recent hospitalization for symptomatic persistent A-fib post redo PVI 11/11/2023.
Anticoagulation with Eliquis
Chronic CHF reduced EF 15-20%
Ventricular tachycardia.
Status post pacemaker insertion 2010/upgrade to Medtronic implantable defibrillator 2011/subsequent ICD battery generator changes .
CAD with PCI.
CKD 3B.
Moderate to severe MR.
Former smoker
Emphysema.
Status post COVID 05/09 with residual muscle weakness/fatigue/nausea
Depression.
Moderate protein calorie malnutrition/cachexia with BMI of 18.3
Plan:
Left lower extremity cellulitis with superficial wound
No evidence for collection on exam.
No systemic symptoms
Noted with elevated white count WBC 18
Continue antibiotics/cefazolin.
Continue wound care
Left ankle swelling with pain and inability to bear weight.
X-ray negative for fracture.
Acute on chronic hyponatremia.
Suspect secondary relative hypotension as well as loop diuretics
Check urine osmolarity
Hold Lasix monitoring volume status closely.
Continue sertraline with caution
Persistent A-fib
Status post redo PVI 11/11/2023.
Rate poorly controlled with atrial tachycardia
Noted with prolonged QTc
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
Correct electrolytes
Cardiology input appreciated.
Reinstated on amiodarone initially IV and now transition to p.o. load.
Attempt to increase dose of Coreg, although with marginal BP. Monitor closely
Continue Eliquis
Acute on chronic CHF reduced EF
Ischemic cardiomyopathy.
Lasix initially held for hypotension.
Noted with elevated pro CHF BNP
Chest x-ray on 12/08 with pulmonary edema
Start gentle IV diuresis monitor for hypotension and follow renal function. Lasix IV 40 mg on 12/08. Monitor volume status.
Continue Coreg
General deconditioning
Ambulatory dysfunction, multifactorial.
Physical therapy assessment.
Protein calorie malnutrition. Will add Ensure.
Goals of care discussion with patient and family at the bedside.
Noticed progressive declining over the recent past with ambulatory dysfunction, poor appetite, malnutrition.
They were contemplating palliative approach and hospice, although patient and family currently not ready to transition. They would like to try all possible options in terms of treatment of heart failure and A-fib, attempt of nutritional supplement
and physical therapy with possible rehab at assisted facility.
Anticipated Discharge: 24 - 48 hours
Subjective/Interval History
-
Date of Service: December 09, 2023
Objective Data
-
Labs:
Laboratory Results
12/09/23
12:39
WBC 17.3 H
Hgb 14.4
Hct 42.1
Plt Count 178
Sodium 129 L
Potassium 3.6
Chloride 94 L
Carbon Dioxide 24
BUN 65 H
Creatinine 1.1
Glucose 160 H
Calcium 8.7
Total Bilirubin 2.3 H
AST 61 H
ALT 12
Alkaline Phosphatase 108
Vital Signs:
Vital Signs
Temp Pulse Resp BP Pulse Ox
98.9 F 61 18 101/60 98
12/09/23 15:32 12/09/23 15:32 12/09/23 15:32 12/09/23 15:32 12/09/23 15:32
I&O
12/08/23 12/09/23 12/10/23
06:59 06:59 06:59
Intake Total 600 / 600 960 / 960
Output Total 150 / 150 600 / 600
Balance 450 / 450 360 / 360
Physical Exam
-
General: Well Developed and No Apparent Distress
HEENT: Normocephalic, Atraumatic and Moist Mucous Membranes
Respiratory: Clear to Auscultation
Cardiac: Regular Rhythm and S1/S2; Negative Murmur, Rub or Gallop
GI: Soft, Nontender, Nondistended and Normal Bowel Sounds; Negative Organomegaly
Rectal: Deferred by Provider
Musculoskeletal: No Clubbing, No Cyanosis and No Edema
Skin: Negative Rash
Neuro: Nonfocal/Grossly Intact
--- NOTE | 2023-12-09 16:06 | CM ---
Chart reviewed and plan is for skilled placement multiple referrals sent. Needs Auth for skilled placement.
Plan; Skilled placement.
[2023-12-10 03:05] VITALS: BP 132/61
[2023-12-10] MEDS: ANCEF 10 IV ×3 (03:07→20:04)
[2023-12-10 06:00] VITALS: BMI 20.7
[2023-12-10 07:39] VITALS: BP 99/72
[2023-12-10 07:58] LABS: Hematocrit 42.7 % (39.0-52.0); Hemoglobin 14.5 g/dL (13.0-18.0); Mean Corpuscular Hgb 29.2 pg (27.0-31.0); Mean Corpuscular Volume 85.9 fL (80.0-94.0); Mean Platelet Volume 12.3 fL (7.4-10.4); Platelet Count 162 10^3/uL (130-400); Red Blood Cell Count 4.97 10^6/uL (4.70-6.10); Red Cell Dist. Width 18.8 % (11.5-14.5)
[2023-12-10] MEDS: COREG PO ×2 (07:58→20:04)
[2023-12-10] MEDS: HYDROPHOR 1 APPLIC TOPICAL (08:01)
[2023-12-10] MEDS: PACERONE 400 MG PO ×3 (08:02→21:05)
[2023-12-10] MEDS: ELIQUIS 5 MG PO ×2 (08:02→20:04)
[2023-12-10] MEDS: ZOLOFT 75 MG PO (08:02)
--- NOTE | 2023-12-10 08:22 | W.PN.CARDCBS ---
Addendum entered and electronically signed by Stan Barbour MD 12/10/23 12:14:
Amiodarone is currently 400 3 times daily
Addendum entered and electronically signed by Stan Barbour MD 12/10/23 12:13:
Fatigued, mildly short of breath does not want to get out of bed
PMH/PSH/FH/SH: Reviewed
Allergies: Enalapril
Outpatient medicines: Reviewed
Current medications: Apixaban 5 mg twice daily, sertraline 75 mg a day, Ancef, pantoprazole 20 mg a day, carvedilol 12.5 mg twice daily, amiodarone 400 mg 3 times daily
ROS: Negative except as above
99/72, 132/61, respirate 18, afebrile, weight is 71 kg, down 0.5 kg
Frail, elderly, left leg in Jaswant wrap, skin tears with Apolinar, JVD elevated, lungs diminished in bases, irregular rate and rhythm, soft systolic murmur at apex, 1+ to 2+ edema on right, neuro grossly focal, fatigued, somewhat lethargic
White count 18, hemoglobin 14.5 platelets 162, sodium 129, potassium 3.3, BUN/creatinine 64 and 0.9, proBNP was greater than 27,000 on the troponin not drawn, free T4 is 2.23, TSH is 0.04
Chest x-ray: CHF
Telemetry: Atrial tachycardia with sinus rhythm and ventricular pacing
Impression:
Left lower extremity cellulitis
Leukocytosis
Prolonged QT on ECG
Acute on chronic hyponatremia
Symptomatic persistent Afib
s/p PVI 09/25/16
post redo PVI/PFA 11/11/23
previously on chronic amiodarone, stopped due to elevated LFTs at [facility] 08/30/23
Chronic Tikosyn therapy (stopped 12/06/2023 due to prolonged QTc)Eliquis OAC
changed from warfarin to Eliquis during admission to [facility] 4Chronic HFrEF 15-20%
CAD s/p PCI at [facility] 2000
Hyperlipidemia
Ventricular tachycardia
Status post pacemaker insertion, 2010, upgrade to Medtronic implantable defibrillator, 2011, and subsequent ICD battery generator changes 2013, 2017, and 2021.
GERD
CKD3b
moderate-severe MR
Former smoker/Emphysema on CT 2016
Osteoarthritis, status post left total hip arthroplasty 2018.
COVID 19, 04/2023, with residual muscle weakness, fatigue, and nausea.
Depression
Fatty liver disease with chronically elevated transaminases.
AAA
Plan:
He has an element of acute on chronic HFrEF. Furosemide is on hold.
Blood pressure is relatively marginal. Will start IV furosemide, he takes 40 mg orally by mouth.
Optimization of GDMT will be difficult. He is on carvedilol. he will not tolerate JASWANT - angioedema
ARB/ARNI/SGLT2 antagonists also potentially problematic
Rhythm remains chaotic, continue amiodarone, will increase to 200 mg 3 times daily.
Fluid restrict given hyponatremia.
He has borderline hyperthyroid. Hospitalist has addressed and has been in touch with endocrine, will repeat studies in a month.
He might benefit from upgrade of ICD to [employer] but unclear with cellulitis and overall prognosis that this is an option, certainly not at present.
Prognosis is guarded.
Original Note:
Today's Communication / Plan
-
Continue amiodarone loading. Follow QT
Follow BP and give IV lasix as BP allows.
Continue abx per primary service
Impression / Plan
-
PCP: Brendan Webber DO
CDY: Fausot Floyd MD
Impression:
Left lower extremity cellulitis
Leukocytosis
Prolonged QT on ECG
Acute on chronic hyponatremia
Symptomatic persistent Afib
s/p PVI 09/25/16
post redo PVI/PFA 11/11/23
previously on chronic amiodarone, stopped due to elevated LFTs at [facility] 08/30/23
Chronic Tikosyn therapy (stopped 12/06/2023 due to prolonged QTc)
Eliquis OAC
changed from warfarin to Eliquis during admission to [facility] 08/2023
Chronic HFrEF 15-20%
CAD s/p PCI at [facility] 2000
Hyperlipidemia
Ventricular tachycardia
Status post pacemaker insertion, 2010, upgrade to Medtronic implantable defibrillator, 2011, and subsequent ICD battery generator changes 2013, 2017, and 2021.
GERD
CKD3b
moderate-severe MR
Former smoker/Emphysema on CT 2016
Osteoarthritis, status post left total hip arthroplasty 2018.
COVID , 04/2023, with residual muscle weakness, fatigue, and nausea.
Depression
Fatty liver disease with chronically elevated transaminases.
AAA
Echo 08/30/2023 ([facility]): EF 20% with severe global hypokinesis, mildly dilated LV, moderately dilated LA, moderate MR
Plan:
-Presented with LLE pain, redness, and swelling. Being treated for cellulitis w/ IV abx. LE US negative for DVT.
-Also noted to have prolonged QT of 630 ms on arrival. Tikosyn stopped (last dose 12/07/2023).
-Noted to have continued episodes of atrial tachycardia and QTc improved as Tikosyn washed out.
-Started on IV amiodarone 12/08 and transitioned to PO amiodarone 400mg TID. QTc 557ms by EKG 12/09. Continue to follow.
-HRs somewhat improved w/ initiation of amiodarone. Continues to have intermittent paroxysms of afib. Will follow w/ amiodarone loading.
-Lasix had been on hold due to hypotension, however CXR 12/08 consistent w/ CHF and proBNP > 27,000 12/07.
-IV lasix 40mg x1 given 12/08. Weight down 1 lb overnight to 156 lbs 12/09. Weight down 7 lbs this admission. Creat stable at 0.9.
-Hypotension noted this AM. Would consider giving additional dose of IV lasix as BP allows as he still appears somewhat volume overloaded.
-K 3.3. Replete.
-Continue carvedilol w/ hold parameters. Patient had angioedema previously on JASWANT inhibitor so would avoid JASWANT/ARB. Could consider addition of Aldactone and or SGLT2 inhibitor as OP if BP allows.
Patient is a 73-year-old male with past medical history of heart failure with reduced ejection fraction, persistent atrial fibrillation status post PVI ablation 2016 with redo PVI ablation October 2023, antiarrhythmic therapy with Tikosyn, chronic
anticoagulation on Eliquis, CAD with PCI 2000, ventricular tachycardia with Medtronic ICD, CKD, GERD who presented to emergency department 12/06/2023 with complaints of left lower extremity swelling, pain, drainage x 1 week which occurred following a
fall. Patient reports fall occurred when he lost his balance when he was transitioning from his bed to his sofa. He reports he did not hit his head. In the emergency department he was noted to have left lower extremity cellulitis with elevated
white count and started on IV Ancef. Cardiology being asked to see patient for concerns of prolonged QT on Tikosyn. EKG shows ventricular paced rhythm with reported QTc 630 ms
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
Subjective
Date of Service: December 10, 2023
Reports he is tired. No chest pain or SOB.
Objective
Labs:
12/10/23 07:12
Labs
Hgb 14.5 g/dL (13.0-18.0) 12/10/23 07:12
Hct 42.7 % (39.0-52.0) 12/10/23 07:12
Plt Count 162 10^3/uL (130-400) 12/10/23 07:12
Sodium 129 mmol/L (135-145) L 12/09/23 12:39
Potassium 3.6 mmol/L (3.5-5.1) 12/09/23 12:39
BUN 65 mg/dl (9-20) H 12/09/23 12:39
Creatinine 1.1 mg/dL (0.7-1.3) 12/09/23 12:39
Glucose 160 mg/dl (70-99) H 12/09/23 12:39
Vital Signs and I&O:
Vital Signs
Temp Pulse Resp BP Pulse Ox
97.3 F 100 19 99/72 97
12/10/23 07:39 12/10/23 07:39 12/10/23 07:39 12/10/23 07:39 12/10/23 07:39
Vital Signs
Temp Pulse Resp BP Pulse Ox
97.3 F 100 19 99/72 97
12/10/23 07:39 12/10/23 07:39 12/10/23 07:39 12/10/23 07:39 12/10/23 07:39
Intake & Output
12/08/23 12/09/23 12/10/23 12/11/23
06:59 06:59 06:59 06:59
Intake Total 600 / 600 960 / 960 720 / 720
Output Total 150 / 150 600 / 600 850 / 850
Balance 450 / 450 360 / 360 -130 / -130
Physical Exam
Physical Exam
GEN: Frail and chronically ill-appearing, no distress, awake, Ox3
HEENT: supple, anicteric, mmm
LUNGS: CTA bl, no wheezes/rales
CV: Irregularly irregular, S1/S2, 1/6 apical murmur
EXT: No clubbing or cyanosis. +1 RLE edema, LLE w/ JASWANT wrap in place.
NEURO: Gross non-focal
SKIN: No rash, warm, dry, pink
[2023-12-10] MEDS: PROTONIX 20 MG PO (08:59)
[2023-12-10 09:56] LABS: ALT (SGPT) 11 U/L (0-50); AST (SGOT) 62 U/L (17-59); Albumin 2.7 g/dl (3.5-5.0); Alkaline Phosphatase 114 U/L (38-126); Blood Urea Nitrogen 64 mg/dl (9-20); Calcium 8.8 mg/dl (8.4-10.2); Carbon Dioxide 24 mmol/L (22-30); Chloride 94 mmol/L (98-107); Direct Bilirubin 1.4 mg/dl (0.0-0.4); Estimated Creatinine Clearance 71 ml/min; Glucose 98 mg/dl (70-99); Potassium 3.3 mmol/L (3.5-5.1); Sodium 129 mmol/L (135-145); Total Bilirubin 2.1 mg/dl (0.2-1.3); Total Protein 5.5 g/dl (6.3-8.2); eGFR > 60.00
[2023-12-10] MEDS: KCL 40 MEQ PO (11:32)
[2023-12-10 11:38] VITALS: BP 101/74
[2023-12-10] MEDS: ALDACTONE 12.5 MG PO (14:35)
[2023-12-10] MEDS: LASIX 40 MG IV (14:35)
--- NOTE | 2023-12-10 14:40 | CM ---
Chart reviewed and patient has been accepted at [facility], manager of case management spoke with patient's spouse and she is agreeable to [facility], Auth submitted, [facility] , Dr. Monae ,
Plan; Skilled placement at [facility], guevara will need COVID testing completed on day of discharge.
[2023-12-10 15:29] VITALS: BP 105/77
--- NOTE | 2023-12-10 16:23 | W.PN.HOSP.TC ---
Today's Communication/Plan
-
Continue IV antibiotics monitoring WBC.
Continue IV diuresis
Amiodarone load as per cardiology.
Assessment / Plan
Assessment / Plan
Impression:
Persistent atrial fibrillation with rapid ventricular response
Acute CHF reduced EF.
Acute pulmonary edema.
Left lower extremity cellulitis with superficial wounds.
General deconditioning.
Acute on chronic hyponatremia.
Hypokalemia potassium 3.4.
Hypomagnesemia
Conditions prior to admission:
Recent hospitalization for symptomatic persistent A-fib post redo PVI 11/11/2023.
Anticoagulation with Eliquis
Chronic CHF reduced EF 15-20%
Ventricular tachycardia.
Status post pacemaker insertion 2010/upgrade to Medtronic implantable defibrillator 2011/subsequent ICD battery generator changes .
CAD with PCI.
CKD 3B.
Moderate to severe MR.
Former smoker
Emphysema.
Status post COVID 05/09 with residual muscle weakness/fatigue/nausea
Depression.
Moderate protein calorie malnutrition/cachexia with BMI of 18.3
Plan:
Left lower extremity cellulitis with superficial wound
No evidence for collection on exam.
No systemic symptoms
Noted with elevated white count WBC 18 continue following
Continue antibiotics/cefazolin.
Continue wound care
Left ankle swelling with pain and inability to bear weight.
X-ray negative for fracture.
Acute on chronic hyponatremia.
Suspect secondary relative hypotension as well as loop diuretics
Check urine osmolarity
Hold Lasix monitoring volume status closely.
Continue sertraline with caution
Persistent A-fib
Status post redo PVI 11/11/2023.
Rate poorly controlled with atrial tachycardia
Noted with prolonged QTc
On Tikosyn ENGINE INSPECTOR had been discontinued given prolonged QTc
Correct electrolytes
Cardiology input appreciated.
Reinstated on amiodarone initially IV and now transition to p.o. load.
Attempt to increase dose of Coreg, although with marginal BP. Monitor closely
Continue Eliquis
Acute on chronic CHF reduced EF
Ischemic cardiomyopathy.
Lasix initially held for hypotension.
Noted with elevated pro CHF BNP
Chest x-ray on 12/08 with pulmonary edema
Continue IV diuresis monitoring for excessive hypotension. Follow renal function.
Continue Coreg
Subclinical hyperthyroidism.
Noted with marginally suppressed TSH with elevated free T4.
Has been on amiodarone holiday and reinstated currently over this admission.
Less likely affects A-fib rate control.
Discussed with endocrinology. No indication for intervention at this point.
Follow TFTs in about 2 months while on amiodarone.
Follow with endocrinology as outpatient.
General deconditioning
Ambulatory dysfunction, multifactorial.
Physical therapy assessment.
Protein calorie malnutrition. Will add Ensure.
Goals of care discussion with patient and family at the bedside.
Noticed progressive declining over the recent past with ambulatory dysfunction, poor appetite, malnutrition.
They were contemplating palliative approach and hospice, although patient and family currently not ready to transition. They would like to try all possible options in terms of treatment of heart failure and A-fib, attempt of nutritional supplement
and physical therapy with possible rehab at halfway facility.
Anticipated Discharge: 24 - 48 hours
Subjective/Interval History
-
Date of Service: December 10, 2023
Objective Data
-
Labs:
Laboratory Results
12/10/23
07:12
WBC 18.0 H
Hgb 14.5
Hct 42.7
Plt Count 162
Sodium 129 L
Potassium 3.3 L
Chloride 94 L
Carbon Dioxide 24
BUN 64 H
Creatinine 0.9
Glucose 98
Calcium 8.8
Total Bilirubin 2.1 H
AST 62 H
ALT 11
Alkaline Phosphatase 114
Vital Signs:
Vital Signs
Temp Pulse Resp BP Pulse Ox
97.9 F 118 19 105/77 96
12/10/23 15:29 12/10/23 15:29 12/10/23 15:29 12/10/23 15:29 12/10/23 15:29
I&O
12/09/23 12/10/23 12/11/23
06:59 06:59 06:59
Intake Total 960 / 960 720 / 720
Output Total 600 / 600 850 / 850
Balance 360 / 360 -130 / -130
Physical Exam
-
General: Well Developed and No Apparent Distress
HEENT: Normocephalic, Atraumatic and Moist Mucous Membranes
Respiratory: Clear to Auscultation
Cardiac: Regular Rhythm and S1/S2; Negative Murmur, Rub or Gallop
GI: Soft, Nontender, Nondistended and Normal Bowel Sounds; Negative Organomegaly
Rectal: Deferred by Provider
Musculoskeletal: No Clubbing, No Cyanosis and No Edema
Skin: Negative Rash
Neuro: Nonfocal/Grossly Intact
[2023-12-10 19:34] VITALS: BP 101/72
[2023-12-10] MEDS: KCL 20 MEQ PO (21:05)
[2023-12-10 23:01] VITALS: BP 96/69
[2023-12-11] VITALS (8 sets, daily range): BP systolic 75–110; BP diastolic 51–79; PULSE 112–122; BMI 20.1
[2023-12-11] MEDS: ANCEF 10 IV ×2 (04:45→12:44)
--- NOTE | 2023-12-11 07:23 | W.PN.CARDCBS ---
Addendum entered and electronically signed by Victor Hugo Swan DO 12/11/23 11:32:
I saw and examined the patient.
The Environmental Health Manager's note was reviewed and I agree with the note.
Comment:
Patient seen and examined. No acute events overnight. Patient resting comfortably in chair still notes significant fatigue. Denies any chest pain, shortness of breath, palpitations, or new weakness. Appears to be paced with underlying AT AFL on
monitor brief nonsustained VT. White count remains elevated.
GEN: Frail and chronically ill-appearing, no distress, awake, Ox3
HEENT: supple, anicteric, mmm
LUNGS: CTA b/l, no wheezes/rales
CV: Irregularly irregular, S1/S2, 1/6 apical murmur
EXT: No clubbing or cyanosis. +1 RLE edema, LLE w/ RADHA wrap in place.
NEURO: Gross non-focal
SKIN: No rash, warm, dry, pink
EKG 12/10/2023 notes atrial sensed, ventricularly paced rhythm with PVC, QT/QTc 456/557
A/P as below
Monitor on telemetry, follow QT/QTc on daily EKG continue amiodarone for now
Continue IV diuretic can consider transition to p.o. 24-48 hours, replete electrolytes as needed goal K greater than 4, mag greater than 2
Continue goal-directed therapy as tolerated
Original Note:
Today's Communication / Plan
-
Continue amiodarone, follow QTc
Continue IV lasix
Impression / Plan
-
PCP: Brendan Webber, DO
CDY: Fausto Floyd MD
Impression:
Left lower extremity cellulitis
Leukocytosis
Prolonged QT on ECG
Acute on chronic hyponatremia
Symptomatic persistent Afib
s/p PVI 09/25/16
post redo PVI/PFA 11/11/23
previously on chronic amiodarone, stopped due to elevated LFTs at [facility] 08/30/23
Chronic Tikosyn therapy (stopped 12/06/2023 due to prolonged QTc)
Eliquis OAC
changed from warfarin to Eliquis during admission to [facility] 08/2023
Chronic HFrEF 15-20%
CAD s/p PCI at [facility] 2000
Hyperlipidemia
Ventricular tachycardia
Status post pacemaker insertion, 2010, upgrade to Medtronic implantable defibrillator, 2011, and subsequent ICD battery generator changes 2013, 2017, and 2021.
GERD
CKD3b
moderate-severe MR
Former smoker/Emphysema on CT 2016
Osteoarthritis, status post left total hip arthroplasty 2018.
COVID 19, 04/2023, with residual muscle weakness, fatigue, and nausea.
Depression
Fatty liver disease with chronically elevated transaminases.
AAA
Echo 08/30/2023 ([facility]): EF 20% with severe global hypokinesis, mildly dilated LV, moderately dilated LA, moderate MR
Plan:
-Presented with LLE pain, redness, and swelling. Being treated for cellulitis w/ IV abx. LE US negative for DVT.
-Also noted to have prolonged QT of 630 ms on arrival. Tikosyn stopped (last dose 12/07/2023).
-Continues to have frequent episodes of atrial tachycardia/atrial fibrillation on tele. May eventually consider AV node ablation.
-Started on IV amiodarone 12/08 and transitioned to PO amiodarone 400mg TID. QTc 557ms by EKG 12/09. Continue to follow.
-Lasix had been on hold due to hypotension, however CXR 12/08 consistent w/ CHF and proBNP > 27,000 12/07.
-IV lasix restarted 12/08. Weight down to 152 lbs, down 11lbs this admission. Creat stable at 0.8.
-K stable at 4.2.
-Continue carvedilol w/ hold parameters.
-Patient had angioedema previously on RADHA inhibitor so would avoid RADHA/ARB. Could consider addition of Aldactone and or SGLT2 inhibitor as OP if BP allows.
Patient is a 73-year-old male with past medical history of heart failure with reduced ejection fraction, persistent atrial fibrillation status post PVI ablation 2016 with redo PVI ablation October 2023, antiarrhythmic therapy with Tikosyn, chronic
anticoagulation on Eliquis, CAD with PCI 2000, ventricular tachycardia with Medtronic ICD, CKD, GERD who presented to emergency department 12/06/2023 with complaints of left lower extremity swelling, pain, drainage x 1 week which occurred following a
fall. Patient reports fall occurred when he lost his balance when he was transitioning from his bed to his sofa. He reports he did not hit his head. In the emergency department he was noted to have left lower extremity cellulitis with elevated
white count and started on IV Ancef. Cardiology being asked to see patient for concerns of prolonged QT on Tikosyn. EKG shows ventricular paced rhythm with reported QTc 630 ms
Progress Note - Museum Archivist
Subjective
Date of Service: December 11, 2023
Still w/ no complaints of chest pain or SOB. Denies palpitations.
Objective
Labs:
Labs
Hgb 14.5 g/dL (13.0-18.0) 12/10/23 07:12
Hct 42.7 % (39.0-52.0) 12/10/23 07:12
Plt Count 162 10^3/uL (130-400) 12/10/23 07:12
Sodium 129 mmol/L (135-145) L 12/10/23 07:12
Potassium 3.3 mmol/L (3.5-5.1) L 12/10/23 07:12
BUN 64 mg/dl (9-20) H 12/10/23 07:12
Creatinine 0.9 mg/dL (0.7-1.3) 12/10/23 07:12
Glucose 98 mg/dl (70-99) 12/10/23 07:12
Vital Signs and I&O:
Vital Signs
Temp Pulse Resp BP Pulse Ox
97.5 F 119 18 101/72 96
12/11/23 03:36 12/11/23 03:36 12/11/23 03:36 12/11/23 03:36 12/11/23 03:36
Vital Signs
Temp Pulse Resp BP Pulse Ox
97.5 F 119 18 101/72 96
12/11/23 03:36 12/11/23 03:36 12/11/23 03:36 12/11/23 03:36 12/11/23 03:36
Intake & Output
12/09/23 12/10/23 12/11/23 12/12/23
06:59 06:59 06:59 06:59
Intake Total 960 / 960 720 / 720 1200 / 1200
Output Total 600 / 600 850 / 850 320 / 320
Balance 360 / 360 -130 / -130 880 / 880
Physical Exam
Physical Exam
GEN: Frail and chronically ill-appearing, no distress, awake, Ox3
HEENT: supple, anicteric, mmm
LUNGS: CTA b/l, no wheezes/rales
CV: Irregularly irregular, S1/S2, 1/6 apical murmur
EXT: No clubbing or cyanosis. +1 RLE edema, LLE w/ RADHA wrap in place.
NEURO: Gross non-focal
SKIN: No rash, warm, dry, pink
[2023-12-11 07:24] LABS: Hematocrit 45.8 % (39.0-52.0); Hemoglobin 15.4 g/dL (13.0-18.0); Mean Corp Hgb Conc. 33.6 g/dL (33.0-37.0); Mean Corpuscular Hgb 29.1 pg (27.0-31.0); Mean Corpuscular Volume 86.4 fL (80.0-94.0); Mean Platelet Volume 11.9 fL (7.4-10.4); Platelet Count 146 10^3/uL (130-400); Red Cell Dist. Width 18.6 % (11.5-14.5); White Blood Cell Count 18.7 10^3/uL (4.8-10.8)
[2023-12-11 07:54] LABS: ALT (SGPT) 11 U/L (0-50); AST (SGOT) 58 U/L (17-59); Albumin 2.8 g/dl (3.5-5.0); Alkaline Phosphatase 115 U/L (38-126); Blood Urea Nitrogen 60 mg/dl (9-20); Calcium 9.1 mg/dl (8.4-10.2); Carbon Dioxide 23 mmol/L (22-30); Chloride 97 mmol/L (98-107); Direct Bilirubin 1.6 mg/dl (0.0-0.4); Estimated Creatinine Clearance 78 ml/min; Glucose 121 mg/dl (70-99); Magnesium 1.9 mg/dl (1.6-2.3); Potassium 4.2 mmol/L (3.5-5.1); Sodium 131 mmol/L (135-145); Total Bilirubin 2.4 mg/dl (0.2-1.3); Total Protein 5.6 g/dl (6.3-8.2); eGFR > 60.00
[2023-12-11] MEDS: COREG PO ×2 (09:20→19:43)
[2023-12-11] MEDS: HYDROPHOR 1 APPLIC TOPICAL (09:21)
[2023-12-11] MEDS: LASIX 40 MG IV (09:42)
[2023-12-11] MEDS: ELIQUIS 5 MG PO ×2 (09:43→19:44)
[2023-12-11] MEDS: ZOLOFT 75 MG PO (09:43)
[2023-12-11] MEDS: ALDACTONE 12.5 MG PO (09:43)
[2023-12-11] MEDS: PACERONE 400 MG PO ×3 (09:44→21:10)
[2023-12-11] MEDS: KCL 20 MEQ PO (09:44)
[2023-12-11] MEDS: PROTONIX 20 MG PO (09:44)
--- NOTE | 2023-12-11 13:44 | W.PN.HOSP.TC ---
Addendum entered and electronically signed by Cedric Hollins MD 12/11/23 16:34:
Chest x-ray with small right lower lobe consolidation? Atelectasis and improved interstitial pattern with pulmonary edema.
Ultrasound of the abdomen with no evidence of acute cholecystitis.
Given persistent leukocytosis being on cefazolin and now a new infiltrate in the right base, will broaden antibiotic spectrum from cefazolin to Zosyn. Follow WBC.
Original Note:
Today's Communication/Plan
-
IV Lasix
Monitor daily weights and renal function.
Oral amiodarone load.
Continued cefazolin for left lower extremity cellulitis.
Monitor WBC.
With persistent leukocytosis, repeat chest x-ray.
With hyperbilirubinemia and persistent leukocytosis, check abdominal ultrasound.
Assessment / Plan
Assessment / Plan
Impression:
Persistent atrial fibrillation with rapid ventricular response
Acute CHF reduced EF.
Acute pulmonary edema.
Left lower extremity cellulitis with superficial wounds.
General deconditioning.
Acute on chronic hyponatremia.
Hypokalemia potassium 3.4.
Hypomagnesemia
Conditions prior to admission:
Recent hospitalization for symptomatic persistent A-fib post redo PVI 11/11/2023.
Anticoagulation with Eliquis
Chronic CHF reduced EF 15-20%
Ventricular tachycardia.
Status post pacemaker insertion 2010/upgrade to Medtronic implantable defibrillator 2011/subsequent ICD battery generator changes .
CAD with PCI.
CKD 3B.
Moderate to severe MR.
Former smoker
Emphysema.
Status post COVID 05/09 with residual muscle weakness/fatigue/nausea
Depression.
Moderate protein calorie malnutrition/cachexia with BMI of 18.3
Plan:
Left lower extremity cellulitis with superficial wound
No evidence for collection on exam.
No systemic symptoms
Left lower extremity erythema and induration improves, although remains with elevated white count at 18.
Afebrile.
Continue cefazolin
Given persistent leukocytosis, will check chest x-ray (has cough productive with yellow sputum),
Mild hyperbilirubinemia. Benign abdominal exam. Given persistent leukocytosis, will check ultrasound of the abdomen.
Consider broadening antibiotics and ID consultation if with persistent leukocytosis
Left ankle swelling with pain and inability to bear weight.
X-ray negative for fracture.
Acute on chronic hyponatremia.
Suspect secondary relative hypotension as well as loop diuretics
Check urine osmolarity
Hold Lasix monitoring volume status closely.
Continue sertraline with caution
Persistent A-fib
Status post redo PVI 11/11/2023.
Rate poorly controlled with atrial tachycardia
Noted with prolonged QTc
On Tikosyn FINE GRADE BULLDOZER OPERATOR had been discontinued given prolonged QTc
Correct electrolytes
Cardiology input appreciated.
Reinstated on amiodarone initially IV and now transition to p.o. load.
Attempt to increase dose of Coreg, although with marginal BP. Monitor closely
Continue Eliquis
Acute on chronic CHF reduced EF
Ischemic cardiomyopathy.
Lasix initially held for hypotension.
Noted with elevated pro CHF BNP
Chest x-ray on 12/08 with pulmonary edema
Continue IV diuresis monitoring for excessive hypotension. Follow renal function.
Continue Coreg
Subclinical hyperthyroidism.
Noted with marginally suppressed TSH with elevated free T4.
Has been on amiodarone holiday and reinstated currently over this admission.
Less likely affects A-fib rate control.
Discussed with endocrinology. No indication for intervention at this point.
Follow TFTs in about 2 months while on amiodarone.
Follow with endocrinology as outpatient.
General deconditioning
Ambulatory dysfunction, multifactorial.
Physical therapy assessment.
Protein calorie malnutrition. Will add Ensure.
Goals of care discussion with patient and family at the bedside.
Noticed progressive declining over the recent past with ambulatory dysfunction, poor appetite, malnutrition.
They were contemplating palliative approach and hospice, although patient and family currently not ready to transition. They would like to try all possible options in terms of treatment of heart failure and A-fib, attempt of nutritional supplement
and physical therapy with possible rehab at shelter facility.
Anticipated Discharge: > 48 hours
Subjective/Interval History
-
Date of Service: December 11, 2023
Objective Data
-
Labs:
Laboratory Results
12/11/23
06:57
WBC 18.7 H
Hgb 15.4
Hct 45.8
Plt Count 146
Sodium 131 L
Potassium 4.2 D
Chloride 97 L
Carbon Dioxide 23
BUN 60 H
Creatinine 0.8
Glucose 121 H
Calcium 9.1
Total Bilirubin 2.4 H
AST 58
ALT 11
Alkaline Phosphatase 115
Vital Signs:
Vital Signs
Temp Pulse Resp BP Pulse Ox
98.3 F 112 20 106/79 96
12/11/23 11:14 12/11/23 11:14 12/11/23 11:14 12/11/23 11:14 12/11/23 11:14
I&O
12/10/23 12/11/23 12/12/23
06:59 06:59 06:59
Intake Total 720 / 720 1200 / 1200
Output Total 850 / 850 320 / 320
Balance -130 / -130 880 / 880
Physical Exam
-
General: Well Developed and No Apparent Distress
HEENT: Normocephalic, Atraumatic and Moist Mucous Membranes
Respiratory: Clear to Auscultation
Cardiac: Regular Rhythm and S1/S2; Negative Murmur, Rub or Gallop
GI: Soft, Nontender, Nondistended and Normal Bowel Sounds; Negative Organomegaly
Rectal: Deferred by Provider
Musculoskeletal: No Clubbing, No Cyanosis and No Edema
Skin: Negative Rash
Neuro: Nonfocal/Grossly Intact
--- NOTE | 2023-12-11 15:00 | CM ---
Chart reviewed and top case assembler spoke with physician and patient is not stable for discharge, plan is for skilled placement when stable, and patient has been accepted at [facility], Auth submitted with [facility].
Plan; To follow up with skilled placement at [facility] when patient is medically stable for discharge, patient will need Auth.
[2023-12-11] MEDS: ZOSYN 50 IV ×2 (18:03→23:17)
[2023-12-12 03:08] VITALS: BP 108/97
[2023-12-12 05:44] VITALS: BMI 21.3
[2023-12-12 07:25] VITALS: BP 98/73
[2023-12-12] MEDS: ZOSYN 50 IV ×3 (07:26→17:10)
[2023-12-12 08:07] LABS: Glucose - Point of Care 130 mg/dl (70-99)
[2023-12-12] MEDS: PROTONIX 20 MG PO (08:09)
[2023-12-12] MEDS: ELIQUIS 5 MG PO ×2 (08:09→21:45)
[2023-12-12] MEDS: COREG PO ×2 (08:09→21:43)
[2023-12-12] MEDS: ZOLOFT 75 MG PO (08:10)
[2023-12-12] MEDS: KCL 20 MEQ PO (08:10)
[2023-12-12] MEDS: PACERONE 400 MG PO ×3 (08:10→21:45)
[2023-12-12] MEDS: HYDROPHOR 1 APPLIC TOPICAL (08:10)
[2023-12-12 09:56] LABS: % Basophils 0.1 % (0-2); % Eosinophils 0.1 % (0-6); % Immature Granulocytes 0.9 % (0-0.5); % Lymphocytes 2.3 % (20.5-51.1); % Monocytes 1.5 % (1.7-9.3); % Neutrophils 95.1 % (42.2-75.2); Absolute Immature Granulocytes 0.2 10^3/uL (0-0.05); Absolute Lymphocytes 0.4 10^3/uL (1.2-3.4); Absolute Monocytes 0.3 10^3/uL (0.1-0.6); Absolute Neutrophils 17.4 10^3/uL (1.4-6.5); Hematocrit 47.6 % (39.0-52.0); Hemoglobin 16.2 g/dL (13.0-18.0); Mean Corpuscular Hgb 29.1 pg (27.0-31.0); Mean Corpuscular Volume 85.6 fL (80.0-94.0); Nucleated Red Blood Cells % 0.2 % (-); Platelet Count 109 10^3/uL (130-400); Red Blood Cell Count 5.56 10^6/uL (4.70-6.10); Red Cell Dist. Width 19.7 % (11.5-14.5); White Blood Cell Count 18.3 10^3/uL (4.8-10.8)
[2023-12-12 10:03] LABS: ALT (SGPT) 11 U/L (0-50); AST (SGOT) 51 U/L (17-59); Albumin 3.1 g/dl (3.5-5.0); Alkaline Phosphatase 110 U/L (38-126); Blood Urea Nitrogen 61 mg/dl (9-20); Carbon Dioxide 19 mmol/L (22-30); Chloride 101 mmol/L (98-107); Estimated Creatinine Clearance 73 ml/min; Glucose 107 mg/dl (70-99); Potassium 4.7 mmol/L (3.5-5.1); Sodium 131 mmol/L (135-145); Total Bilirubin 3.2 mg/dl (0.2-1.3); Total Protein 6.1 g/dl (6.3-8.2); eGFR > 60.00
[2023-12-12] MEDS: LASIX IV (10:12)
[2023-12-12] MEDS: ALDACTONE PO (10:12)
[2023-12-12 11:00] VITALS: BP 103/73
--- NOTE | 2023-12-12 14:01 | W.PN.HOSP.TC ---
Today's Communication/Plan
-
Rate controlled A-fib
Hold diuretics, monitor volume status
PT/OT, nutritional shakes
IV antibiotics for cellulitis and possible pneumonia versus aspiration pneumonitis
Assessment / Plan
Assessment / Plan
#Nonpurulent cellulitis of LLE superficial wound
#Aspiration pneumonia versus pneumonitis
#Persistent leukocytosis
-Was initially placed on IV cefazolin at admission, induration and erythema improved
-Remains with a persistent leukocytosis, complains of productive cough
-X-ray showed opacification at the right lower lobe suspicion for CAP versus aspiration
-Was escalated to IV Zosyn for more broad-spectrum coverage
-Remains on room air, afebrile today
Plan
-Continue with IV Zosyn for today, follow cultures
-Low threshold to transition back to Zosyn
-Speech and swallow eval, consider BSC for aspiration
-Aspiration precautions
#Acute on chronic HFrEF -- LVEF 15 to 20%, SIRENA
#Acute pulmonary edema
# CAD s/p PCI
-Likely ischemic cardiomyopathy versus infiltrative cardiomyopathy per echo and history
-GDMT includes beta-teri, was started on MRA upon this hospitalization
-Home regimen for loop diuretic Lasix 40 mg daily, transitioned to IV
-Warm and dry phenotype today, on room air
Plan
-Hold Lasix today as he appears dry, consider further dose on day by day basis
-Continue beta-teri and MRA for GDMT
-Uptitrate GDMT as hemodynamics allow
-I/os, weights, trend BMP
#Persistent atrial fibrillation with rapid ventricular response
-Seems to have resolved, heart rate back into the 90s today though still in A-fib
-Was previously on dofetilide for rhythm control, DC'd due to prolonged QTc
-Remains on carvedilol, amiodarone, Eliquis is his home regimen
-Status post PVI x 2, most recent on 11/11/2023
-Continue to monitor telemetry
#Acute on chronic hyponatremia
-Likely hypervolemic etiology from decompensated heart failure, chronic diuretic use as well
-Sodium has been stable near 130, suspect that this may be near baseline for him
-No signs or symptoms associated with hyponatremia
-Trend daily BMP, monitor volume status
#Hypokalemia
-Secondary to diuretic use, monitor BMP and replete as needed
#Hypomagnesemia
-Secondary to diuretic use, monitor daily BMP and mag and replete as needed
#CKD 3B -- baseline creatinine 0.9
-Per history, unclear etiology; most recent eGFR >70
-Renal function has been stable
# Moderate�severe MR
-Noted in severity on most recent DOUGLAS, no hemodynamic metrics available
-Murmur noted on exam, S1 audible
#Emphysema/former smoker
-Radiographic diagnosis, no PFTs or recent hospitalizations for COPD
-Does not seem to be on any standing inhalers at home
-Currently on room air, no wheezes
#Generalized weakness/deconditioning
#Moderate protein calorie malnutrition/cachexia with BMI of 18.3
-Due to chronic illness, acute on chronic issues as above, post-COVID syndrome from 04/2023
-Ensure with meals, promote oral intake, PT/OT
#Goals of care discussion with patient and family at the bedside 12/10: Noticed progressive declining over the recent past with ambulatory dysfunction, poor appetite, malnutrition. They were contemplating palliative approach and hospice, although
patient and family currently not ready to transition. They would like to try all possible options in terms of treatment of heart failure and A-fib, attempt of nutritional supplement and physical therapy with possible rehab at residential
facility.
DVT prophylaxis: Home Eliquis
Diet: House, 2 g sodium restricted
CODE STATUS: Full code
Anticipated Discharge: 24 - 48 hours
Subjective/Interval History
-
Date of Service: December 12, 2023
Seen and examined at bedside. No events reported overnight. Denies any acute complaints today, states that he just continues to be very weak. No shortness of breath, chest pain, fevers or chills. He denies any nausea or vomiting as well. Says
he is moving his bowels properly, no urinary issues
Objective Data
-
Labs:
Laboratory Results
12/12/23
09:35
WBC 18.3 H
Hgb 16.2
Hct 47.6
Plt Count 109 L D
Sodium 131 L
Potassium 4.7
Chloride 101
Carbon Dioxide 19 L
BUN 61 H
Creatinine 0.9
Glucose 107 H
Calcium 9.0
Total Bilirubin 3.2 H
AST 51
ALT 11
Alkaline Phosphatase 110
Vital Signs:
Vital Signs
Temp Pulse Resp BP Pulse Ox
97.7 F 93 16 103/73 100
12/12/23 11:00 12/12/23 11:00 12/12/23 11:00 12/12/23 11:00 12/12/23 11:00
I&O
12/11/23 12/12/23 12/13/23
06:59 06:59 06:59
Intake Total 1200 / 1200 440 / 440
Output Total 320 / 320 250 / 250 150 / 150
Balance 880 / 880 190 / 190 -150 / -150
Review of Systems
-
History Source: Patient
All other systems: Reviewed and negative
Physical Exam
-
General: Cachectic and Other (Extremely thin, frail weak appearing)
HEENT: Normocephalic, Atraumatic, Moist Mucous Membranes and Anicteric
Respiratory: Clear to Auscultation and Non Labored Respirations; Negative Wheezes, Rales or Rhonchi
Cardiac: S1/S2, Irregular Rhythm and Murmur (Blowing apical murmur, 3/6 with radiation to axilla); Negative Rub, JVD or Gallop
GI: Soft, Nontender, Nondistended and Normal Bowel Sounds
Musculoskeletal: No Clubbing, No Cyanosis, No Edema and Other (Very thin, atrophic appearing musculature)
Skin: Warm and Dry; Negative Rash or Jaundice
Neuro: AO x 3, Nonfocal/Grossly Intact and Central Nerve's Intact
Data Reviewed
-
Labs: Labs Reviewed by me
[2023-12-12 15:10] VITALS: BP 92/74
--- NOTE | 2023-12-12 16:11 | PTOTSP ---
SPEECH THERAPY SWALLOW EVALUATION:
Clinical signs of oropharyngeal dysphagia with suspected esophageal dysphagia, likely chronic related to weakness/deconditioning secondary to long COVID, CHF, GERD, and acutely exacerbated by cellulitis and possible pneumonia. CXR concerning for
pneumonia; WBC elevated. Patient exhibiting inconsistent signs of aspiration at bedside. Endorsed recent 30 lb weight loss. Recommend Videofluoroscopic Swallowing Study (for Wednesday 12/13 due to weekend schedule) to further assess swallow physiology.
Recommend cautious IDDSI Level 4 Puree diet and thin liquids with aspiration precautions in place until VSE. Medications whole in applesauce. Aspiration/Reflux precautions: Upright positioning; Small single sips/bites; Slow rate of intake; Monitor
oral intake; Supervision and 1:1 assist with meals; only feed when awake/alert; Remain Upright 30 minutes after eating/drinking; Alternate textures; monitor Labs/CXR; Oral care 3x/day to reduce risk for nosocomial infection. D/c oral diet should
patient exhibit any decline in mental or respiratory status. Consider Nutrition consult given limited p.o. intake. Consider GI consult given suspected esophageal dysphagia. Speech therapy to follow with additional recommendations following VSE.
RECOMMEND:
1) Videofluoroscopic Swallowing Study
2) cautious IDDSI Level 4 Puree diet and thin liquids
3) Medications whole in applesauce
4) Aspiration/Reflux precautions: Upright positioning; Small single sips/bites; Slow rate of intake; Monitor oral intake; Supervision and 1:1 assist with meals; only feed when awake/alert; Remain Upright 30 minutes after eating/drinking; Alternate
textures; monitor Labs/CXR; Oral care 3x/day to reduce risk for nosocomial infection. D/c oral diet should patient exhibit any decline in mental or respiratory status.
5) Consider Nutrition and GI consults
6) Speech therapy to follow
[2023-12-12 19:15] VITALS: BP 98/70
[2023-12-12 23:42] VITALS: BP 102/75
[2023-12-13] MEDS: ZOSYN 50 IV ×5 (00:49→23:19)
[2023-12-13 03:43] VITALS: BP 102/72
[2023-12-13 06:00] VITALS: BMI 20.2
[2023-12-13 07:00] VITALS: BP 106/75
[2023-12-13 07:00] LABS: Blood Urea Nitrogen 63 mg/dl (9-20); Calcium 8.7 mg/dl (8.4-10.2); Carbon Dioxide 18 mmol/L (22-30); Chloride 100 mmol/L (98-107); Estimated Creatinine Clearance 70 ml/min; Glucose 91 mg/dl (70-99); Magnesium 2.1 mg/dl (1.6-2.3); Potassium 4.6 mmol/L (3.5-5.1); Sodium 129 mmol/L (135-145); eGFR > 60.00
[2023-12-13] MEDS: ELIQUIS 5 MG PO ×2 (09:00→22:00)
[2023-12-13] MEDS: PROTONIX 20 MG PO (09:00)
[2023-12-13] MEDS: KCL 20 MEQ PO (09:00)
[2023-12-13] MEDS: PACERONE 400 MG PO ×3 (09:00→22:00)
[2023-12-13] MEDS: ZOLOFT 75 MG PO (09:00)
[2023-12-13] MEDS: COREG PO ×2 (09:01→21:59)
[2023-12-13] MEDS: HYDROPHOR 1 APPLIC TOPICAL (09:14)
[2023-12-13] MEDS: ALDACTONE PO (09:34)
--- NOTE | 2023-12-13 10:39 | W.PN.HOSP.TC ---
Today's Communication/Plan
-
Continue IV antibiotics for cellulitis
Plan for SNF placement
Assessment / Plan
Assessment / Plan
#Nonpurulent cellulitis of LLE superficial wound
#Aspiration pneumonia versus pneumonitis
#Persistent leukocytosis
-Was initially placed on IV cefazolin at admission, induration and erythema improved
-Remains with a persistent leukocytosis, complains of productive cough
-X-ray showed opacification at the right lower lobe suspicion for CAP versus aspiration
-Was escalated to IV Zosyn for more broad-spectrum coverage
-Remains on room air, afebrile today
Plan
-Continue with IV Zosyn for today, follow cultures
-Low threshold to transition back to cefazolin tomorrow
-S/p video swallow, currently on pur�ed diet
-Aspiration precautions
#Acute on chronic HFrEF -- LVEF 15 to 20%, SIRENA on TTE
#Acute pulmonary edema
#CAD s/p PCI
-Likely ischemic cardiomyopathy versus infiltrative cardiomyopathy per echo and history
-GDMT includes beta-teri, was started on MRA upon this hospitalization
-Home regimen for loop diuretic Lasix 40 mg daily, transitioned to IV
-Warm and dry phenotype today, on room air
Plan
-Hold Lasix today as he appears dry, consider further dose on day by day basis
-Continue beta-teri and MRA for GDMT; MRA held today for borderline low BP
-Uptitrate GDMT as hemodynamics allow
-I/Os, weights, trend BMP
#Esophageal dysphagia -- DDx likely neuromuscular etiology, malignancy lower suspicion
-Complains of food getting stuck at times, rarely water involved
-He denies any regurgitation, has lost weight post COVID though may be related to COVID itself
-In the room today I watched him swallow and he did not appear to have any issues with fluids
Plan
-Continue with pur�ed diets
-GI referral at discharge
#Persistent AF with RVR -- Status post PVI x 2, most recent on 11/11/2023
-Seems to have resolved, heart rate back into the 90s today though still in A-fib
-S/P Dofetilide; Remains on carvedilol, amiodarone, Eliquis is his home regimen
-Heart rate improved still borderline tacky on average, would benefit from PT
#Acute on chronic hyponatremia
-Likely hypervolemic etiology from decompensated heart failure, chronic diuretic use as well
-Sodium has been stable near 130, suspect that this may be near baseline for him
-No signs or symptoms associated with hyponatremia
-Trend daily BMP, monitor volume status
#CKD 3B -- baseline creatinine 0.9
-Per history, unclear etiology; most recent eGFR >70
-Renal function has been stable
# Moderate�severe MR
-Noted in severity on most recent DOUGLAS, no hemodynamic metrics available
-Murmur noted on exam, S1 audible
#Emphysema/former smoker
-Radiographic diagnosis, no PFTs or recent hospitalizations for COPD
-Does not seem to be on any standing inhalers at home
-Currently on room air, no wheezes
#Generalized weakness/deconditioning
#Moderate protein calorie malnutrition/cachexia with BMI of 18.3
-Due to chronic illness, acute on chronic issues as above, post-COVID syndrome from 04/2023
-Ensure with meals, promote oral intake, PT/OT
#Goals of care discussion with patient and family at the bedside 12/10: Noticed progressive declining over the recent past with ambulatory dysfunction, poor appetite, malnutrition. They were contemplating palliative approach and hospice, although
patient and family currently not ready to transition. They would like to try all possible options in terms of treatment of heart failure and A-fib, attempt of nutritional supplement and physical therapy [facility]
DVT prophylaxis: Home Eliquis
Diet: House, 2 g sodium restricted
CODE STATUS: Full code
Anticipated Discharge: 24 - 48 hours
Subjective/Interval History
-
Date of Service: December 13, 2023
No acute events overnight. He states that he feels about the same today, denies any new acute complaints. Denies chest pain, shortness of breath, fevers or chills, nausea/vomiting/diarrhea, paresthesias or muscle weakness. States that his
generalized weakness and fatigue is about the same and no worse
I did speak with him about dysphagia, states that he does occasionally feel as though 'things go down the wrong pipe.' States that it is worse with solid foods than liquids, has occasionally felt that food has gotten stuck in his throat on the way
down. He denies any regurgitation of food, denies melena.
Objective Data
-
Labs:
Laboratory Results
12/13/23
05:55
Sodium 129 L
Potassium 4.6
Chloride 100
Carbon Dioxide 18 L
BUN 63 H
Creatinine 0.9
Glucose 91
Calcium 8.7
Vital Signs:
Vital Signs
Temp Pulse Resp BP Pulse Ox
97.8 F 112 16 106/75 96
12/13/23 07:00 12/13/23 09:01 12/13/23 07:00 12/13/23 09:01 12/13/23 07:00
I&O
12/12/23 12/13/23 12/14/23
06:59 06:59 06:59
Intake Total 440 / 440 240 / 240
Output Total 250 / 250 400 / 400
Balance 190 / 190 -160 / -160
Review of Systems
-
History Source: Patient
All other systems: Reviewed and negative
Physical Exam
-
General: No Apparent Distress, Comfortable and Appears Chronically Ill
HEENT: Normocephalic, Atraumatic, Moist Mucous Membranes and Anicteric; Negative Good Dentition
Respiratory: Clear to Auscultation and Non Labored Respirations; Negative Wheezes, Rales, Rhonchi or Accessory Resp Muscle Use
Cardiac: S1/S2, Irregular Rhythm, Murmur (3/6 blowing systolic murmur at apex with radiation to axilla) and Tachycardic; Negative JVD
GI: Soft, Nontender, Nondistended and Normal Bowel Sounds
Musculoskeletal: No Clubbing, No Cyanosis and No Edema
Neuro: AO x 3, Nonfocal/Grossly Intact and Central Nerve's Intact
Hematologic / Lymphatic: No Lymphadenopathy
Data Reviewed
-
Labs: Labs Reviewed by me
[2023-12-13 11:00] VITALS: BP 110/81
--- NOTE | 2023-12-13 12:59 | CM ---
CM called [facility] [phone] to check auth status, left message requesting return call on auth status. CM will continue to follow for all discharge planning needs.
Plan; [facility] SN[facility] pending auth approval.
[2023-12-13 15:00] VITALS: BP 105/72
[2023-12-13 19:32] VITALS: BP 100/69
[2023-12-13 23:08] VITALS: BP 107/79
[2023-12-14] VITALS (9 sets, daily range): BP systolic 90–103; BP diastolic 51–78; PULSE 114; BMI 20.4
[2023-12-14] MEDS: ZOSYN 50 IV ×3 (05:40→17:23)
[2023-12-14] MEDS: ALDACTONE PO (07:46)
[2023-12-14] MEDS: COREG PO ×2 (07:46→20:30)
[2023-12-14] MEDS: ZOLOFT 75 MG PO (08:16)
[2023-12-14] MEDS: PROTONIX 20 MG PO (08:16)
[2023-12-14] MEDS: KCL 20 MEQ PO (08:18)
[2023-12-14] MEDS: ELIQUIS 5 MG PO ×2 (08:18→20:32)
[2023-12-14] MEDS: PACERONE 400 MG PO (08:18)
[2023-12-14] MEDS: HYDROPHOR 1 APPLIC TOPICAL (08:24)
[2023-12-14 08:50] LABS: Hemoglobin 15.9 g/dL (13.0-18.0); Mean Corp Hgb Conc. 33.1 g/dL (33.0-37.0); Mean Corpuscular Hgb 28.7 pg (27.0-31.0); Mean Corpuscular Volume 86.6 fL (80.0-94.0); Platelet Count 121 10^3/uL (130-400); Red Blood Cell Count 5.54 10^6/uL (4.70-6.10); Red Cell Dist. Width 20.1 % (11.5-14.5); White Blood Cell Count 15.4 10^3/uL (4.8-10.8)
[2023-12-14 09:09] LABS: Blood Urea Nitrogen 71 mg/dl (9-20); Calcium 8.6 mg/dl (8.4-10.2); Carbon Dioxide 19 mmol/L (22-30); Chloride 100 mmol/L (98-107); Estimated Creatinine Clearance 57 ml/min; Glucose 77 mg/dl (70-99); Potassium 4.8 mmol/L (3.5-5.1); Sodium 131 mmol/L (135-145); eGFR > 60.00
--- NOTE | 2023-12-14 10:13 | W.PN.CARDCBS ---
Addendum entered and electronically signed by Andrew Gan DO 12/14/23 13:01:
.
Transition to Amiodarone 200 mg daily pending QTc in AM
Addendum entered and electronically signed by Andrew Gan DO 12/14/23 13:00:
I saw and evaluated the patient. I reviewed the resident�s note and agree with findings and plan as documented in the resident�s note.
Plan:
Tikosyn stopped for prolonged QTc and pt transitioned to Amiodarone and underwent Amiodarone load.
Likely transition to Amiodarone 200 mg daily. QTc overall stable. Cont to monitor QTc. Monitor EKGs.
Lasix on hold. Likely resume lasix at 20 mg daily prior to d/c if volume status improves and cont to monitor Is and Os and daily wts.
Monitor Is and Os and daily wts.
Regarding GDMT for CM, patient had angioedema previously on RADHA inhibitor so would avoid ACEI/ARB/ARNI. Could consider addition of Aldactone as outpt if bp allows
Cont supportive care and abx for cellulitis.
Pt awaiting SNF
Goals of care discussion ongoing. Palliative care would be appropriate.
Original Note:
Today's Communication / Plan
-
Continue Eliquis
Continue Amiadarone, daily EKGs
Hold Lasix
Impression / Plan
-
PCP: Brendan Webber DO
CDY: Fausto Floyd MD
Impression:
Left lower extremity cellulitis
Leukocytosis
Prolonged QT on ECG
Acute on chronic hyponatremia
Symptomatic persistent Afib
s/p PVI 09/25/16
post redo PVI/PFA 11/11/23
previously on chronic amiodarone, stopped due to elevated LFTs at [facility] 08/30/23
Chronic Tikosyn therapy (stopped 12/06/2023 due to prolonged QTc)
Eliquis OAC
changed from warfarin to Eliquis during admission to [facility] 08/2023
Chronic HFrEF 15-20%
CAD s/p PCI at [facility] 2000
Hyperlipidemia
Ventricular tachycardia
Status post pacemaker insertion, 2010, upgrade to Medtronic implantable defibrillator, 2011, and subsequent ICD battery generator changes 2013, 2017, and 2021.
GERD
CKD3b
moderate-severe MR
Former smoker/Emphysema on CT 2016
Osteoarthritis, status post left total hip arthroplasty 2018.
COVID 19, 04/2023, with residual muscle weakness, fatigue, and nausea.
Depression
Fatty liver disease with chronically elevated transaminases.
AAA
Echo 08/30/2023 ([facility]): EF 20% with severe global hypokinesis, mildly dilated LV, moderately dilated LA, moderate MR
Plan:
-Presented with LLE pain, redness, and swelling. Being treated for cellulitis w/ IV abx. LE US negative for DVT.
-Also noted to have prolonged QT of 630 ms on arrival. Tikosyn stopped (last dose 12/07/2023).
-Continues to have frequent episodes of atrial tachycardia/atrial fibrillation on tele. May eventually consider AV node ablation.
-Started on IV amiodarone 12/08 then transitioned to PO amiodarone 400mg TID.
-Decrease Amiodarone to 200mg OD
-On 12/12 OTc is 509
-Daily EKGs
-Weight last admission 69.kg, currently 70kg.
-Continue to hold Lasix due to hypotension, however CXR 12/08 consistent w/ CHF and proBNP > 27,000 12/07.
-Creat stable at 1.1, K stable at 4.8 today (currently taking KCL 20mg po daily)
-Continue carvedilol w/ hold parameters of less than <90 SBP
-Patient had angioedema previously on RADHA inhibitor so would avoid RADHA/ARB. Could consider addition of Aldactone and or SGLT2 inhibitor as OP if BP allows.
Patient is a 73-year-old male with past medical history of heart failure with reduced ejection fraction, persistent atrial fibrillation status post PVI ablation 2016 with redo PVI ablation October 2023, antiarrhythmic therapy with Tikosyn, chronic
anticoagulation on Eliquis, CAD with PCI 2000, ventricular tachycardia with Medtronic ICD, CKD, GERD who presented to emergency department 12/06/2023 with complaints of left lower extremity swelling, pain, drainage x 1 week which occurred following a
fall. Patient reports fall occurred when he lost his balance when he was transitioning from his bed to his sofa. He reports he did not hit his head. In the emergency department he was noted to have left lower extremity cellulitis with elevated
white count and started on IV Ancef. Cardiology being asked to see patient for concerns of prolonged QT on Tikosyn. EKG shows ventricular paced rhythm with reported QTc 630 ms
Progress Note - Home Staging Specialist
Subjective
Date of Service: December 14, 2023
Objective
Labs:
12/14/23 08:33
12/14/23 08:33
Labs
Hgb 15.9 g/dL (13.0-18.0) 12/14/23 08:33
Hct 48.0 % (39.0-52.0) 12/14/23 08:33
Plt Count 121 10^3/uL (130-400) L 12/14/23 08:33
Sodium 131 mmol/L (135-145) L 12/14/23 08:33
Potassium 4.8 mmol/L (3.5-5.1) 12/14/23 08:33
BUN 71 mg/dl (9-20) H 12/14/23 08:33
Creatinine 1.1 mg/dL (0.7-1.3) 12/14/23 08:33
Glucose 77 mg/dl (70-99) 12/14/23 08:33
Vital Signs and I&O:
Vital Signs
Temp Pulse Resp BP Pulse Ox
96.6 F L 122 16 96/68 96
12/14/23 07:00 12/14/23 07:00 12/14/23 07:00 12/14/23 07:46 12/14/23 07:00
Vital Signs
Temp Pulse Resp BP Pulse Ox
96.6 F L 122 16 96/68 96
12/14/23 07:00 12/14/23 07:00 12/14/23 07:00 12/14/23 07:46 12/14/23 07:00
Intake & Output
12/12/23 12/13/23 12/14/23 12/15/23
06:59 06:59 06:59 06:59
Intake Total 440 / 440 240 / 240 900 / 900
Output Total 250 / 250 400 / 400 400 / 400
Balance 190 / 190 -160 / -160 500 / 500
Physical Exam
Physical Exam
GEN: Frail and chronically ill-appearing, no distress, awake, Ox3
HEENT: supple, anicteric, mmm
LUNGS: CTA b/l, no wheezes/rales
CV: S1/S2, tachy
EXT: No clubbing or cyanosis. +1 RLE edema, LLE w/ RADHA wrap in place.
NEURO: Gross non-focal
SKIN: No rash, warm, dry, pink
--- NOTE | 2023-12-14 14:58 | W.PN.HOSP.TC ---
Today's Communication/Plan
-
transition to po atb in 24hours
rec ot nursing to loosen jaswant wrapping
dvt study negative for dvt, likely dependent edema
dc planning
Assessment / Plan
Assessment / Plan
NAD, resting comfortably in bed
Scleral anicteric
Moist mucous membranes
No JVD
CTA bilateral
Normal S1-S2 no murmurs
Soft nontender nondistended bowel sounds active
No peripheral pitting edema
Moves extremities spontaneously
Left lower extremity specifically foot swollen, from ankle to thigh and Jaswant bandage.-Warm and well-perfused lower extremity, unilateral swelling worse on the left than the right
AAO
#Nonpurulent cellulitis of LLE superficial wound
#Aspiration pneumonia versus pneumonitis
#Persistent leukocytosis
-Was initially placed on IV cefazolin at admission, induration and erythema improved
-Remains with a persistent leukocytosis, complains of productive cough
-X-ray showed opacification at the right lower lobe suspicion for CAP versus aspiration
-Was escalated to IV Zosyn for more broad-spectrum coverage
-Remains on room air, afebrile today
Plan
-Continue with IV Zosyn for today, follow cultures
-Low threshold to transition back to cefazolin tomorrow
-S/p video swallow, currently on pur�ed diet
-Aspiration precautions
#Acute on chronic HFrEF -- LVEF 15 to 20%, SIRENA on TTE
#Acute pulmonary edema
#CAD s/p PCI
-Likely ischemic cardiomyopathy versus infiltrative cardiomyopathy per echo and history
-GDMT includes beta-teri, was started on MRA upon this hospitalization
-Home regimen for loop diuretic Lasix 40 mg daily, transitioned to IV
-Warm and dry phenotype today, on room air
Plan
-Hold Lasix today as he appears dry, consider further dose on day by day basis
-Continue beta-teri and MRA for GDMT; MRA held today for borderline low BP
-Uptitrate GDMT as hemodynamics allow
-I/Os, weights, trend BMP
#Esophageal dysphagia -- DDx likely neuromuscular etiology, malignancy lower suspicion
-Complains of food getting stuck at times, rarely water involved
-He denies any regurgitation, has lost weight post COVID though may be related to COVID itself
-In the room today I watched him swallow and he did not appear to have any issues with fluids
Plan
-Continue with pur�ed diets
-GI referral at discharge
#Persistent AF with RVR -- Status post PVI x 2, most recent on 11/11/2023
-Seems to have resolved, heart rate back into the 90s today though still in A-fib
-S/P Dofetilide; Remains on carvedilol, amiodarone, Eliquis is his home regimen
-Heart rate improved still borderline tacky on average, would benefit from PT
#Acute on chronic hyponatremia
-Likely hypervolemic etiology from decompensated heart failure, chronic diuretic use as well
-Sodium has been stable near 130, suspect that this may be near baseline for him
-No signs or symptoms associated with hyponatremia
-Trend daily BMP, monitor volume status
#CKD 3B -- baseline creatinine 0.9
-Per history, unclear etiology; most recent eGFR >70
-Renal function has been stable
# Moderate�severe MR
-Noted in severity on most recent DOUGLAS, no hemodynamic metrics available
-Murmur noted on exam, S1 audible
#Emphysema/former smoker
-Radiographic diagnosis, no PFTs or recent hospitalizations for COPD
-Does not seem to be on any standing inhalers at home
-Currently on room air, no wheezes
#Generalized weakness/deconditioning
#Moderate protein calorie malnutrition/cachexia with BMI of 18.3
-Due to chronic illness, acute on chronic issues as above, post-COVID syndrome from 04/2023
-Ensure with meals, promote oral intake, PT/OT
#Goals of care discussion with patient and family at the bedside 12/10: Noticed progressive declining over the recent past with ambulatory dysfunction, poor appetite, malnutrition. They were contemplating palliative approach and hospice, although
patient and family currently not ready to transition. They would like to try all possible options in terms of treatment of heart failure and A-fib, attempt of nutritional supplement and physical therapy with possible rehab at nursing home
facility.
DVT prophylaxis: Home Eliquis
Diet: House, 2 g sodium restricted
CODE STATUS: Full code
Anticipated Discharge: Within 24 hours
Subjective/Interval History
-
Date of Service: December 14, 2023
Seen and examined. No new complaints. No acute overnight events.
Objective Data
-
Labs:
Laboratory Results
12/14/23
08:33
WBC 15.4 H
Hgb 15.9
Hct 48.0
Plt Count 121 L
Sodium 131 L
Potassium 4.8
Chloride 100
Carbon Dioxide 19 L
BUN 71 H
Creatinine 1.1
Glucose 77
Calcium 8.6
Vital Signs:
Vital Signs
Temp Pulse Resp BP Pulse Ox
97.5 F 109 18 100/73 96
12/14/23 11:00 12/14/23 11:00 12/14/23 11:00 12/14/23 11:00 12/14/23 11:00
I&O
12/13/23 12/14/23 12/15/23
06:59 06:59 06:59
Intake Total 240 / 240 900 / 900
Output Total 400 / 400 400 / 400
Balance -160 / -160 500 / 500
--- NOTE | 2023-12-14 15:03 | W.PN.HOSP.TC ---
Today's Communication/Plan
-
transition from iv to po atb
continue diuretics
hold MRA
Assessment / Plan
Assessment / Plan
NAD, resting comfortably in bed
Scleral anicteric
Moist mucous membranes
No JVD
CTA bilateral
Normal S1-S2 no murmurs
Soft nontender nondistended bowel sounds active
No peripheral pitting edema
Moves extremities spontaneously
Left lower extremity specifically foot swollen, from ankle to thigh and Jaswant bandage.-Warm and well-perfused lower extremity, unilateral swelling worse on the left than the right
AAO
#Nonpurulent cellulitis of LLE superficial wound
#Aspiration pneumonia versus pneumonitis
#Persistent leukocytosis
-Was initially placed on IV cefazolin at admission, induration and erythema improved
-Remains with a persistent leukocytosis, complains of productive cough
-X-ray showed opacification at the right lower lobe suspicion for CAP versus aspiration
-Was escalated to IV Zosyn for more broad-spectrum coverage
-Remains on room air, afebrile today
Plan
-Continue with IV Zosyn for today, follow cultures
-Low threshold to transition back to cefazolin tomorrow
-S/p video swallow, currently on pur�ed diet
-Aspiration precautions
#Acute on chronic HFrEF -- LVEF 15 to 20%, SIRENA on TTE
#Acute pulmonary edema
#CAD s/p PCI
-Likely ischemic cardiomyopathy versus infiltrative cardiomyopathy per echo and history
-GDMT includes beta-teri, was started on MRA upon this hospitalization howvere, MRA remain on hold due to hemodynamics
-Home regimen for loop diuretic Lasix 40 mg daily, transitioned to IV
-Warm and dry phenotype today, on room air
Plan
-Hold Lasix today as he appears dry, consider further dose on day by day basis
-Continue beta-teri. DC MRA as not tolerating GDMT
-Uptitrate GDMT as hemodynamics allow
-I/Os, weights, trend BMP
#Esophageal dysphagia -- DDx likely neuromuscular etiology, malignancy lower suspicion
-Complains of food getting stuck at times, rarely water involved
-He denies any regurgitation, has lost weight post COVID though may be related to COVID itself
-In the room today I watched him swallow and he did not appear to have any issues with fluids
Plan
-Continue with pur�ed diets
-GI referral at discharge
#Persistent AF with RVR -- Status post PVI x 2, most recent on 11/11/2023
-Seems to have resolved, heart rate back into the 90s today though still in A-fib
-S/P Dofetilide; Remains on carvedilol, amiodarone, Eliquis is his home regimen
-Heart rate improved still borderline tacky on average, would benefit from PT
#Acute on chronic hyponatremia
-Likely hypervolemic etiology from decompensated heart failure, chronic diuretic use as well
-Sodium has been stable near 130, suspect that this may be near baseline for him
-No signs or symptoms associated with hyponatremia
-Trend daily BMP, monitor volume status
#CKD 3B -- baseline creatinine 0.9
-Per history, unclear etiology; most recent eGFR >70
-Renal function has been stable
# Moderate�severe MR
-Noted in severity on most recent DOUGLAS, no hemodynamic metrics available
-Murmur noted on exam, S1 audible
#Emphysema/former smoker
-Radiographic diagnosis, no PFTs or recent hospitalizations for COPD
-Does not seem to be on any standing inhalers at home
-Currently on room air, no wheezes
#Generalized weakness/deconditioning
#Moderate protein calorie malnutrition/cachexia with BMI of 18.3
-Due to chronic illness, acute on chronic issues as above, post-COVID syndrome from 04/2023
-Ensure with meals, promote oral intake, PT/OT
#Goals of care discussion with patient and family at the bedside 12/10: Noticed progressive declining over the recent past with ambulatory dysfunction, poor appetite, malnutrition. They were contemplating palliative approach and hospice, although
patient and family currently not ready to transition. They would like to try all possible options in terms of treatment of heart failure and A-fib, attempt of nutritional supplement and physical therapy with possible rehab at shelter
facility.
DVT prophylaxis: Home Eliquis
Diet: House, 2 g sodium restricted
CODE STATUS: Full code
Anticipated Discharge: 24 - 48 hours
Subjective/Interval History
-
Date of Service: December 14, 2023
Objective Data
-
Labs:
Laboratory Results
12/14/23
08:33
WBC 15.4 H
Hgb 15.9
Hct 48.0
Plt Count 121 L
Sodium 131 L
Potassium 4.8
Chloride 100
Carbon Dioxide 19 L
BUN 71 H
Creatinine 1.1
Glucose 77
Calcium 8.6
Vital Signs:
Vital Signs
Temp Pulse Resp BP Pulse Ox
97.5 F 109 18 100/73 96
12/14/23 11:00 12/14/23 11:00 12/14/23 11:00 12/14/23 11:00 12/14/23 11:00
I&O
12/13/23 12/14/23 12/15/23
06:59 06:59 06:59
Intake Total 240 / 240 900 / 900
Output Total 400 / 400 400 / 400
Balance -160 / -160 500 / 500
--- NOTE | 2023-12-14 16:12 | CM ---
freelance digital project manager reviewed patient's chart and patient is for possible video swallow today.
Plan; Skilled placement need Auth from insurance.
[2023-12-15] MEDS: ZOSYN 50 IV ×3 (00:07→12:00)
--- NOTE | 2023-12-15 00:30 | PTCARENOTE ---
Pt noted to have 11 beat run of Vtach. Pt HR then back to sustaining in 110'-120's. Asymptomatic. [employer]SEM[employer]ER [employer]ER Mona Galvan made aware. Told to monitor for now. No further orders.
[2023-12-15 03:00] VITALS: BP 93/73
[2023-12-15 06:00] VITALS: BMI 20.4
[2023-12-15 07:29] LABS: Hematocrit 46.9 % (39.0-52.0); Mean Corp Hgb Conc. 34.1 g/dL (33.0-37.0); Mean Corpuscular Hgb 29.4 pg (27.0-31.0); Mean Corpuscular Volume 86.2 fL (80.0-94.0); Platelet Count 125 10^3/uL (130-400); Red Blood Cell Count 5.44 10^6/uL (4.70-6.10); Red Cell Dist. Width 20.5 % (11.5-14.5); White Blood Cell Count 14.5 10^3/uL (4.8-10.8)
[2023-12-15 07:50] LABS: Blood Urea Nitrogen 80 mg/dl (9-20); Calcium 8.6 mg/dl (8.4-10.2); Carbon Dioxide 20 mmol/L (22-30); Chloride 99 mmol/L (98-107); Estimated Creatinine Clearance 49 ml/min; Glucose 81 mg/dl (70-99); Potassium 4.7 mmol/L (3.5-5.1); Sodium 132 mmol/L (135-145); eGFR 57.29
[2023-12-15 08:00] VITALS: BP 101/60
--- NOTE | 2023-12-15 08:33 | W.PN.CARDCBS ---
Addendum entered and electronically signed by Andrew Gan DO 12/15/23 17:33:
I saw and evaluated the patient. I reviewed the resident�s note and agree with findings and plan as documented in the resident�s note.
Plan:
Patient is currently n.p.o. given dysphagia. Swallowing eval ongoing.
With beta-teri on hold, Lopressor IV 2.5 mg every 8hr for heart rate control. Hold for systolic blood pressure less than 100 mmHg.
Continue to monitor QTc. Amiodarone on hold with prolonged QT. Pt underwent amiodarone load after Tikosyn wash out.
lasix held. Monitor volume status.
Cont tx for cellulitis
Continue supportive care. Goals of care discussion ongoing. Palliative care would be appropriate.
Pt awaiting SNF
Original Note:
Today's Communication / Plan
-
Initiated IV Lopressor
Continue to hold Amiadarone
Daily EKGs for QT monitoring
Impression / Plan
-
PCP: Brendan Webber DO
CDY: Fausto Floyd MD
Impression:
Left lower extremity cellulitis
Leukocytosis
Prolonged QT on ECG
Acute on chronic hyponatremia
Symptomatic persistent Afib
s/p PVI 09/25/16
post redo PVI/PFA 11/11/23
previously on chronic amiodarone, stopped due to elevated LFTs at [facility] 08/30/23
Chronic Tikosyn therapy (stopped 12/06/2023 due to prolonged QTc)
Eliquis OAC
changed from warfarin to Eliquis during admission to [facility] 08/2023
Chronic HFrEF 15-20%
CAD s/p PCI at 2000
Hyperlipidemia
Ventricular tachycardia
Status post pacemaker insertion, 2010, upgrade to Medtronic implantable defibrillator, 2011, and subsequent ICD battery generator changes 2013, 2017, and 2021.
GERD
CKD3b
moderate-severe MR
Former smoker/Emphysema on CT 2016
Osteoarthritis, status post left total hip arthroplasty 2018.
COVID 19, 04/2023, with residual muscle weakness, fatigue, and nausea.
Depression
Fatty liver disease with chronically elevated transaminases.
AAA
Echo 08/30/2023 ([facility]): EF 20% with severe global hypokinesis, mildly dilated LV, moderately dilated LA, moderate MR
Plan:
-Presented with LLE pain, redness, and swelling. Being treated for cellulitis w/ IV abx. LE US negative for DVT.
-Also noted to have prolonged QT of 630 ms on arrival. Tikosyn stopped (last dose 12/07/2023).
-Continues to have frequent episodes of atrial tachycardia/atrial fibrillation on tele. May eventually consider AV node ablation.
-Started on IV amiodarone 12/08 then transitioned to PO amiodarone 400mg TID, then held on 12/13
-Weight last admission 69.kg, currently 70kg.
-Continue to hold Lasix due to hypotension, however CXR 12/08 consistent w/ CHF and proBNP > 27,000 12/07.
-Creat stable at 1.3, K stable (currently taking KCL 20mg po daily)
-Continue carvedilol w/ hold parameters of less than <90 SBP
-QTc still prolonged today, 599.
-Daily EKGs
-NPO due to dysphagia- continue to hold amiodarone, started IV Lopressor for rate control (hold parameters <100 SBP)
-Patient had angioedema previously on RADHA inhibitor so would avoid RADHA/ARB. Could consider addition of Aldactone and or SGLT2 inhibitor as OP if BP allows.
Patient is a 73-year-old male with past medical history of heart failure with reduced ejection fraction, persistent atrial fibrillation status post PVI ablation 2016 with redo PVI ablation October 2023, antiarrhythmic therapy with Tikosyn, chronic
anticoagulation on Eliquis, CAD with PCI 2000, ventricular tachycardia with Medtronic ICD, CKD, GERD who presented to emergency department 12/06/2023 with complaints of left lower extremity swelling, pain, drainage x 1 week which occurred following a
fall. Patient reports fall occurred when he lost his balance when he was transitioning from his bed to his sofa. He reports he did not hit his head. In the emergency department he was noted to have left lower extremity cellulitis with elevated
white count and started on IV Ancef. Cardiology being asked to see patient for concerns of prolonged QT on Tikosyn. EKG shows ventricular paced rhythm with reported QTc 630 ms
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
Subjective
Date of Service: December 15, 2023
Objective
Labs:
12/15/23 06:43
12/15/23 06:43
Labs
Hgb 16.0 g/dL (13.0-18.0) 12/15/23 06:43
Hct 46.9 % (39.0-52.0) 12/15/23 06:43
Plt Count 125 10^3/uL (130-400) L 12/15/23 06:43
Sodium 132 mmol/L (135-145) L 12/15/23 06:43
Potassium 4.7 mmol/L (3.5-5.1) 12/15/23 06:43
BUN 80 mg/dl (9-20) H 12/15/23 06:43
Creatinine 1.3 mg/dL (0.7-1.3) 12/15/23 06:43
Glucose 81 mg/dl (70-99) 12/15/23 06:43
Vital Signs and I&O:
Vital Signs
Temp Pulse Resp BP Pulse Ox
97.8 F 115 14 101/60 94
12/15/23 03:00 12/15/23 07:00 12/15/23 07:00 12/15/23 08:00 12/15/23 07:00
Vital Signs
Temp Pulse Resp BP Pulse Ox
97.8 F 115 14 101/60 94
12/15/23 03:00 12/15/23 07:00 12/15/23 07:00 12/15/23 08:00 12/15/23 07:00
Intake & Output
12/13/23 12/14/23 12/15/23 12/16/23
06:59 06:59 06:59 06:59
Intake Total 240 / 240 900 / 900 760 / 760
Output Total 400 / 400 400 / 400 50 / 50
Balance -160 / -160 500 / 500 710 / 710
Physical Exam
Physical Exam
GEN: Frail and chronically ill-appearing, no distress, awake, Ox3
HEENT: supple, anicteric, mmm
LUNGS: CTA b/l, no wheezes/rales
CV: S1/S2, tachy
EXT: No clubbing or cyanosis. +1 RLE edema, LLE w/ RADHA wrap in place.
NEURO: Gross non-focal
SKIN: No rash, warm, dry, pink
[2023-12-15] MEDS: ALDACTONE PO (09:35)
[2023-12-15] MEDS: COREG PO ×2 (09:35→21:10)
[2023-12-15 11:00] VITALS: BP 100/70
[2023-12-15] MEDS: HYDROPHOR 1 APPLIC TOPICAL (11:40)
[2023-12-15] MEDS: ELIQUIS PO (11:41)
[2023-12-15] MEDS: PROTONIX PO (11:41)
[2023-12-15] MEDS: ZOLOFT PO (11:41)
[2023-12-15] MEDS: KCL PO (11:41)
--- NOTE | 2023-12-15 12:50 | PTOTSP ---
Video Swallow Study
Summary: Patient with moderate oral and at least moderate-severe pharyngeal dysphagia. Aspiration with variable/delayed and ineffective cough response noted with thin and mildly thick liquids. Moderate diffuse pharyngeal residue noted with
pudding thick liquids which patient could not clear with secondary swallows and a mildly thick liquid wash with a chin tuck resulted in aspiration.
Patient is at an elevated risk for chronic aspiration with an oral diet at this time and at an elevated risk for complications from this due to deconditioning and comorbidities. He currently has signs concerning for aspiration complications (PNA).
Education completed with patient about results of video swallow study, risks/complications of dysphagia/aspiration, strategies to reduce risk for aspiration complications (i.e., thorough oral care), and options for nutrition/hydration which include
continuation of current diet (i.e., puree, thin liquids) understanding risks/complications of aspiration vs consideration of non-oral means of nutrition/hydration. Patient requested to discuss goals of care further with physician after video
swallow study. Notified nurse and physician.
Recommend:
1. NPO until further goals of care discussions
2. Medications - via non-oral means
3. Oral care 3x daily with suctioning
4. Continued dysphagia therapy pending patient goals of care.
If opting for oral diet understanding aspiration risks, consider teaspoon sized sips of liquids with chin tuck, double swallows, and intermittent cough/re-swallow strategy.
--- NOTE | 2023-12-15 12:54 | CON.MD ---
Consultation - Medical
-
dictated.
dysphagia from generalized debility/long covid, compounded by xerostomia, poor dentition.
laryngoscopy normal.
continue Speech Therapy as planned, call us if we can be of further service.
[2023-12-15] MEDS: D5/0.9% SODIUM CHLORIDE 1000 IV (13:25)
--- NOTE | 2023-12-15 14:22 | W.PN.HOSP.TC ---
Today's Communication/Plan
-
failed speech, npo, ivf
lmwh started
hold OAC
iv toradol for pain
Assessment / Plan
Assessment / Plan
NAD, resting comfortably in bed
Scleral anicteric
Moist mucous membranes
No JVD
CTA bilateral
Normal S1-S2 no murmurs
Soft nontender nondistended bowel sounds active
No peripheral pitting edema
Moves extremities spontaneously
Left lower extremity specifically foot swollen, dorsal surface echymotic while antigh tib/fib erythematoud and blanching
AAO
#Nonpurulent cellulitis of LLE superficial wound
#Aspiration pneumonia versus pneumonitis
#Persistent leukocytosis
-Was initially placed on IV cefazolin at admission, induration and erythema improved
-Remains with a persistent leukocytosis, complains of productive cough
-X-ray showed opacification at the right lower lobe suspicion for CAP versus aspiration
-Was escalated to IV Zosyn for more broad-spectrum coverage
-Remains on room air, afebrile today
Plan
-Continue with IV Zosyn for today, follow cultures
-Low threshold to transition back to cefazolin tomorrow
-S/p video swallow, currently on pur�ed diet
-Aspiration precautions
-ID consulted
Leukocytosis possibly related to aspiration pneumonitis
-ID will see and appreciate there input
#Acute on chronic HFrEF -- LVEF 15 to 20%, SIRENA on TTE
#Acute pulmonary edema
#CAD s/p PCI
-Likely ischemic cardiomyopathy versus infiltrative cardiomyopathy per echo and history
-GDMT includes beta-teri, was started on MRA upon this hospitalization howvere, MRA remain on hold due to hemodynamics
-Home regimen for loop diuretic Lasix 40 mg daily, transitioned to IV
-Warm and dry phenotype today, on room air
Plan
-Hold Lasix today as he appears dry, consider further dose on day by day basis
-Continue beta-teri. DC MRA as not tolerating GDMT
-Uptitrate GDMT as hemodynamics allow
-I/Os, weights, trend BMP
#Esophageal dysphagia -- DDx likely neuromuscular etiology, malignancy lower suspicion
-Complains of food getting stuck at times, rarely water involved
-He denies any regurgitation, has lost weight post COVID though may be related to COVID itself
-In the room today I watched him swallow and he did not appear to have any issues with fluids
-Speech rec NPO after he dailed VSE.
-ENT consulted
-Palliative care consulted for [facility]
#Persistent AF with RVR -- Status post PVI x 2, most recent on 11/11/2023
-Seems to have resolved, heart rate back into the 90s today though still in A-fib
-S/P Dofetilide; Remains on carvedilol, amiodarone, Eliquis is his home regimen
-Heart rate improved still borderline tacky on average, would benefit from PT
#Acute on chronic hyponatremia
-Likely hypervolemic etiology from decompensated heart failure, chronic diuretic use as well
-Sodium has been stable near 130, suspect that this may be near baseline for him
-No signs or symptoms associated with hyponatremia
-Trend daily BMP, monitor volume status
#CKD 3B -- baseline creatinine 0.9
-Per history, unclear etiology; most recent eGFR >70
-Renal function has been stable
# Moderate�severe MR
-Noted in severity on most recent DOUGLAS, no hemodynamic metrics available
-Murmur noted on exam, S1 audible
#Emphysema/former smoker
-Radiographic diagnosis, no PFTs or recent hospitalizations for COPD
-Does not seem to be on any standing inhalers at home
-Currently on room air, no wheezes
#Generalized weakness/deconditioning
#Moderate protein calorie malnutrition/cachexia with BMI of 18.3
-Due to chronic illness, acute on chronic issues as above, post-COVID syndrome from 04/2023
-Ensure with meals, promote oral intake, PT/OT
#Goals of care discussion with patient and family at the bedside 12/10: Noticed progressive declining over the recent past with ambulatory dysfunction, poor appetite, malnutrition. They were contemplating palliative approach and hospice, although
patient and family currently not ready to transition. They would like to try all possible options in terms of treatment of heart failure and A-fib, attempt of nutritional supplement and physical therapy with possible rehab at snf
facility.
DVT prophylaxis: Home Eliquis
Diet: NPO, started dextrose containing fluids
CODE STATUS: Full code
Anticipated Discharge: 24 - 48 hours
Subjective/Interval History
-
Date of Service: December 15, 2023
seen and examined. no acute overnight events. no new complaints.
npo now per speech
if he needs a peg tube he would consider it
Objective Data
-
Labs:
Laboratory Results
12/15/23
06:43
WBC 14.5 H
Hgb 16.0
Hct 46.9
Plt Count 125 L
Sodium 132 L
Potassium 4.7
Chloride 99
Carbon Dioxide 20 L
BUN 80 H
Creatinine 1.3
Glucose 81
Calcium 8.6
Vital Signs:
Vital Signs
Temp Pulse Resp BP Pulse Ox
97.9 F 116 14 100/70 95
12/15/23 11:00 12/15/23 11:00 12/15/23 11:00 12/15/23 11:00 12/15/23 11:00
I&O
12/14/23 12/15/23 12/16/23
06:59 06:59 06:59
Intake Total 900 / 900 760 / 760
Output Total 400 / 400 50 / 50
Balance 500 / 500 710 / 710
--- NOTE | 2023-12-15 14:47 | CM ---
Chart reviewed and will await final nutrition plan for patient. Spouse would like skilled placement.
Plan; To follow with patient progress.
[2023-12-15 15:00] VITALS: BP 90/61
[2023-12-15] MEDS: LOPRESSOR IV (15:48)
--- NOTE | 2023-12-15 18:09 | CON.ID ---
Consultation
-
Date/Time Consultation Requested: 12/15/2023 0853
Date/Time Consultation Performed: 12/15/2023 1810
Requesting Provider: Dr. Rodolfo Foote
Performing Provider: Dr. Méndez
Reason for Consultation: Lower extremity cellulitis
Chief Complaint / Past History
History of Present Illness
Junior Leyva is a 73-year-old man being evaluated at the request of Dr. Rodolfo Foote regarding lower extremity cellulitis. History is obtained from chart review, along with patient interview.
The patient has a significant past medical history of A-fib, along with CHF. He presented to the ER on 12/06/2023 secondary to reported left lower extremity pain redness and swelling. At that time, there was reported drainage and weeping from the
left leg since he sustained a fall the week prior. Review of ER records note that he complained of reddish/purple coloration of the lower extremity, but denied any fevers or chills or significant pain in the area. He was placed on IV cefazolin,
but the lower extremity remained discolored and he was then transitioned to Zosyn. Infectious Diseases is asked to assess the need for further antibiotics.
Further history from the son who is present at the bedside notes that he has had chronic and progressive decline since having COVID-19 in April 2023. He notes that his father has not been eating as much, and has been losing weight.
At this time he denies any specific complaints. He denies any fevers or chills. He denies any lower extremity discomfort.
Past History
Additional Past Medical History:
P A-fib
Dyslipidemia
CAD
CHF
Ischemic cardiomyopathy
Mitral regurgitation/tricuspid regurgitation
Abdominal aortic aneurysm
CKD stage III
GERD
Fatty liver disease
DJD
Additional Past Surgical History:
AICD placement
PCI with stent placement
Allergy History:
enalapril [Enalapril] Allergy (Verified 12/06/23 15:56)
lip, tongue and other body swelling
Medications Reviewed: Yes
Current Antibiotics:
Cefazolin (12/05 - 12/10)
Zosyn (12/10 � present)
Social History
Tobacco: Non-Smoker
Alcohol: None
Drug: None
Personal:
Living: With Family
Employment: Retired
Family History
Family History: Not Pertinent
Review of Systems
Vital Signs
Temp Pulse Resp BP Pulse Ox
97.8 F 115 14 90/61 96
12/15/23 15:00 12/15/23 15:00 12/15/23 15:00 12/15/23 15:48 12/15/23 15:00
Physical Exam
Physical Exam
Constitutional: No Acute Distress, Comfortable, Chronically Ill, Non-toxic and Cachetic (mild)
Eyes: Pupils Equal, Pupils Round, No Conjunctival Hemorrhage and Sclera Anicteric
Oral: No Thrush and No Ulcers
Cardiovascular: Regular Rate and S1/S2; Negative S3/S4
Pulmonary: Clear; Negative Wheezes, Rales or Rhonchi
Gastrointestinal: Soft, Non Tender, Non Distended, Normal Bowel Sounds, No Rebound and No Guarding
Genito-Urinary: Negative Arechiga
Extremities: Edema (1+ B/L LE's), Erythema (mild LLE) and Other (No significant lower extremity warmth or tenderness.)
Skin: Warm and Dry; Negative Rash or Jaundice
Neurological: Awake and Alert
Psychological: Calm
.
Lab / Diagnostic Study Results
12/15/23 06:43
12/15/23 06:43
Abs Immat Gran (auto) 0.2 10^3/uL (0-0.05) H 12/12/23 09:35
Absolute Neuts (auto) 17.4 10^3/uL (1.4-6.5) H 12/12/23 09:35
Absolute Lymphs (auto) 0.4 10^3/uL (1.2-3.4) L 12/12/23 09:35
Absolute Monos (auto) 0.3 10^3/uL (0.1-0.6) 12/12/23 09:35
Absolute Basos (auto) 0.0 10^3/uL (0-0.2) 12/12/23 09:35
Immature Gran % 0.9 % (0-0.5) H 12/12/23 09:35
Neutrophils % 95.1 % (42.2-75.2) H 12/12/23 09:35
Lymphocytes % 2.3 % (20.5-51.1) L 12/12/23 09:35
Monocytes % 1.5 % (1.7-9.3) L 12/12/23 09:35
Eosinophils % 0.1 % (0-6) 12/12/23 09:35
Basophils % 0.1 % (0-2) 12/12/23 09:35
Microbiology Results
Micro:
12/07/23 06:02 MRSA Screen - Final
Nose No Methicillin Resistant Staphylococcus aureus isolated.
Imaging:
12/11/2023 CXR (2 view): Left-sided cardiac device is seen with intact wires in the expected location of the right atrium and right ventricle. Cardiomegaly noted. Small patchy right basilar opacification noted. Please see full dictation for
additional detail. Film personally viewed.
12/11/2023 Abdominal ultrasound: No evidence of cholelithiasis, gallbladder wall thickening or biliary tract dilatation. Some suspected gallbladder sludge noted. Findings suggestive of diffuse fatty liver noted. Please see full dictation for
additional detail.
Assessment / Plan
Lower extremity erythema
Leukocytosis
Suspected chronic aspiration
P A-fib
Dyslipidemia
CAD
CHF
Ischemic cardiomyopathy
Mitral regurgitation/tricuspid regurgitation
Abdominal aortic aneurysm
CKD stage III
GERD
Fatty liver disease
DJD
Recommendation:
At present, no significant warmth to the lower extremities, and overall edema reportedly has markedly improved. No current clinical evidence of ongoing cellulitis. Would discontinue further Zosyn.
Etiology of leukocytosis not particularly clear at this time, but may be reactive given lack of other symptomatology. Doubt the minimal infiltrate noted on CXR is responsible for leukocytosis
Would observe off antibiotics for the present.
Monitor white count and temperature curve.
[2023-12-15] MEDS: TORADOL 15 MG IV (18:29)
[2023-12-15] MEDS: ZOSYN IV (18:35)
[2023-12-15 19:00] VITALS: BP 107/77
[2023-12-15] MEDS: LOVENOX 70 MG SC (21:35)
[2023-12-15 23:00] VITALS: BP 101/75
[2023-12-16] MEDS: LOPRESSOR IV ×2 (00:03→08:10)
[2023-12-16] MEDS: D5/0.9% SODIUM CHLORIDE 1000 IV ×2 (02:21→15:20)
[2023-12-16 03:00] VITALS: BP 103/76
[2023-12-16 06:00] VITALS: BMI 20.5
[2023-12-16 07:00] VITALS: BP 95/64
[2023-12-16 07:56] LABS: Blood Urea Nitrogen 84 mg/dl (9-20); Calcium 8.4 mg/dl (8.4-10.2); Carbon Dioxide 20 mmol/L (22-30); Chloride 104 mmol/L (98-107); Estimated Creatinine Clearance 49 ml/min; Glucose 139 mg/dl (70-99); Potassium 4.1 mmol/L (3.5-5.1); Sodium 135 mmol/L (135-145); eGFR 57.29
[2023-12-16] MEDS: COREG PO (08:34)
[2023-12-16] MEDS: ALDACTONE PO (08:34)
[2023-12-16] MEDS: PROTONIX PO (08:35)
[2023-12-16] MEDS: ZOLOFT PO (08:35)
[2023-12-16] MEDS: KCL PO (08:35)
--- NOTE | 2023-12-16 09:07 | W.PN.CARDCBS ---
Addendum entered and electronically signed by Eden Coffey PA-C 12/16/23 14:16:
asked to comment on procedural risk for possible PEG tube placement - he is felt to be at elevated cardiovascular risk for any procedure given his comorbidities however this risk is not prohibitive to proceed
Addendum entered and electronically signed by Vipul Espinosa MD 12/16/23 10:09:
I saw and examined the patient.
The Para Operator's note was reviewed and I agree with the note.
Comment: Briefly, 73-year-old man past medical history of HFrEF (EF 15-20%) and persistent atrial fibrillation status post PVI who is presenting with lower extremity cellulitis
Unfortunately overall he is quite deconditioned
Currently n.p.o. due to ongoing dysphagia which limits treatment of his cardiomyopathy
Lasix on hold with rising Cr
Cont IV lopressor PRN for rate control of AFib
Tikosyn stopped in favor of amiodarone
Lovenox for cardioembolic prophylaxis
Overall prognosis is poor
Original Note:
Today's Communication / Plan
-
NPO status due to dysphagia, work up per primary service
continue therapeutic lovenox
continue IV lopressor 2.5mg Q8H
follow QTc with daily EKGs
consider repeat echo to reassess EF
prognosis appears poor
Impression / Plan
-
PCP: Brendan Webber DO
CDY: Fausto Floyd MD
Impression:
Left lower extremity cellulitis
Leukocytosis
Prolonged QT on ECG
Acute on chronic hyponatremia
Symptomatic persistent Afib
s/p PVI 09/25/16
post redo PVI/PFA 11/11/23
previously on chronic amiodarone, stopped due to elevated LFTs at [facility] 08/30/23
Chronic Tikosyn therapy (stopped 12/06/2023 due to prolonged QTc)
Eliquis OAC
changed from warfarin to Eliquis during admission to [facility] 08/2023
Chronic HFrEF 15-20%
CAD s/p PCI at [facility] 2000
Hyperlipidemia
Ventricular tachycardia
Status post pacemaker insertion, 2010, upgrade to Medtronic implantable defibrillator, 2011, and subsequent ICD battery generator changes 2013, 2017, and 2021.
GERD
CKD3b
moderate-severe MR
Former smoker/Emphysema on CT 2016
Osteoarthritis, status post left total hip arthroplasty 2018.
COVID 19, 04/2023, with residual muscle weakness, fatigue, and nausea.
Depression
Fatty liver disease with chronically elevated transaminases.
AAA
Echo 08/30/2023 ([facility]): EF 20% with severe global hypokinesis, mildly dilated LV, moderately dilated LA, moderate MR
Plan:
-he presented with LLE pain and is being treated for cellulitis
-his tikosyn was stopped due to prolonged QTc (last dose 12/07/23). although he has history of elevated LFTs on amio, he was transitioned to amiodarone after washout on 12/08 prolonged QTc was then held as of 12/13. QTc improving however remains long.
now with dysphagia, so NPO status. on IV lopressor 2.5mg Q8H. does have ICD in place
-check daily EKGs
-Continues to have frequent episodes of atrial tachycardia/atrial fibrillation on tele. May eventually consider AV node ablation.
-on therapeutic lovenox
-lasix on hold due to hypotension, however CXR 12/08 consistent w/ CHF and proBNP > 27,000 12/07.
-Creat stable at 1.3, however BUN uptrending
-last echo from OSH 08/2023 with EF 20%, would consider repeating to reassess EF
-Patient had angioedema previously on RADHA inhibitor so would avoid RADHA/ARB. aldactone added this admission, however presently on hold with NPO status
-patient appears cachectic and frail. prognosis appears poor. comfort care seems appropriate. currently a full code. goal of care discussions ongoing.
Patient is a 73-year-old male with past medical history of heart failure with reduced ejection fraction, persistent atrial fibrillation status post PVI ablation 2016 with redo PVI ablation October 2023, antiarrhythmic therapy with Tikosyn, chronic
anticoagulation on Eliquis, CAD with PCI 2000, ventricular tachycardia with Medtronic ICD, CKD, GERD who presented to emergency department 12/06/2023 with complaints of left lower extremity swelling, pain, drainage x 1 week which occurred following a
fall. Patient reports fall occurred when he lost his balance when he was transitioning from his bed to his sofa. He reports he did not hit his head. In the emergency department he was noted to have left lower extremity cellulitis with elevated
white count and started on IV Ancef. Cardiology being asked to see patient for concerns of prolonged QT on Tikosyn. EKG shows ventricular paced rhythm with reported QTc 630 ms
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
Subjective
Date of Service: December 16, 2023
patient states he is tired
Objective
Labs:
12/15/23 06:43
12/16/23 06:41
Labs
Hgb 16.0 g/dL (13.0-18.0) 12/15/23 06:43
Hct 46.9 % (39.0-52.0) 12/15/23 06:43
Plt Count 125 10^3/uL (130-400) L 12/15/23 06:43
Sodium 135 mmol/L (135-145) 12/16/23 06:41
Potassium 4.1 mmol/L (3.5-5.1) 12/16/23 06:41
BUN 84 mg/dl (9-20) H 12/16/23 06:41
Creatinine 1.3 mg/dL (0.7-1.3) 12/16/23 06:41
Glucose 139 mg/dl (70-99) H 12/16/23 06:41
Vital Signs and I&O:
Vital Signs
Temp Pulse Resp BP Pulse Ox
97.9 F 67 14 95/64 95
12/16/23 03:00 12/16/23 07:00 12/16/23 07:00 12/16/23 07:00 12/16/23 07:00
Vital Signs
Temp Pulse Resp BP Pulse Ox
97.9 F 67 14 95/64 95
12/16/23 03:00 12/16/23 07:00 12/16/23 07:00 12/16/23 07:00 12/16/23 07:00
Intake & Output
12/14/23 12/15/23 12/16/23 12/17/23
07:59 07:59 07:59 07:59
Intake Total 900 / 900 760 / 760 0 / 0
Output Total 400 / 400 50 / 50 125 / 125
Balance 500 / 500 710 / 710 -125 / -125
Physical Exam
Physical Exam
GEN: No distress, awake, lethargic. cachectic
HEENT: supple, anicteric, mmm
LUNGS: CTA anterolaterally, no wheezes
CV: Irreg, S1/S2, 1/6 murmur
ABD: soft, BS+, NT/ND
EXT: No cyanosis, clubbing. 1+ edema of B/L LE
NEURO: Gross non-focal
SKIN: Warm, pink, dry. No rash
[2023-12-16] MEDS: LOVENOX 70 MG SC ×2 (09:25→22:38)
[2023-12-16] MEDS: HYDROPHOR 1 APPLIC TOPICAL (10:30)
[2023-12-16 10:55] LABS: Magnesium 2.4 mg/dl (1.6-2.3)
[2023-12-16 12:05] VITALS: BP 95/65
--- NOTE | 2023-12-16 12:20 | W.PN.UPDATE ---
Update Note
Progress Note Update
called and updated patient's via telephone for 12:00. we discussed that he failed his video swallow with mod oral and at least mod to severe pharyngeal dysphagia and concern for aspiration. He remains NPO status at this time. Discussed options
likely include considering for candidacy of PEG tube placement to aid in nutritional status vs comfort/hospice care with liberalized diet, however will defer to primary team to discuss further. we also discussed his cardiac issues including
persistent atrial fibrillation currently with limited treatment options given prolonged QTc with both tikosyn and amiodarone as well as hypotension, NSVT, EF 20% and mod to severe MR by most recent echo. for repeat echo today to reeval EF. also with
significant cachexia. discussed that his prognosis appears poor. discussed talking to her about DNR code status and potentially turning off ICD therapies, as well as consideration for comfort care/hospice if that is what patient/family
desire after discussing together. d/w hospitalist. d/w nursing
--- NOTE | 2023-12-16 12:54 | W.PN.ID1 ---
Date of Service
Date of Service: December 16, 2023
Today's Communication
Observe off antibiotics.
Assessment / Plan
Lower extremity erythema
Leukocytosis
Suspected chronic aspiration
P A-fib
Dyslipidemia
CAD
CHF
Ischemic cardiomyopathy
Mitral regurgitation/tricuspid regurgitation
Abdominal aortic aneurysm
CKD stage III
GERD
Fatty liver disease
DJD
Recommendation:
At present, no significant warmth to the lower extremities, and overall edema reportedly has markedly improved. No current clinical evidence of ongoing cellulitis.
Etiology of leukocytosis not particularly clear at this time, but may be reactive given lack of other symptomatology. Doubt the minimal infiltrate noted on CXR is responsible for leukocytosis
Would observe off antibiotics for the present.
����������������������������������������������������������
Chief Complaint
-: Cellulitis
Subjective / Review of Systems
Review of Systems: No Fever and No Chills
Vital Signs / Physical Exam
Vital Signs
Vital Signs
Temp Pulse Resp BP Pulse Ox
97.4 F 66 16 95/65 95
12/16/23 12:05 12/16/23 12:05 12/16/23 12:05 12/16/23 12:05 12/16/23 12:05
Physical Exam
Constitutional: No Acute Distress, Comfortable, Chronically Ill and Cachetic (mild)
Cardiovascular: S1/S2; Negative S3/S4
Pulmonary: Non Labored
Gastrointestinal: Soft and Non Distended
Extremities: Edema (1+) and Erythema (minimal; no significant warmth)
Neurological: Awake
Psychological: Calm
Objective Data
Lab Data
Lab Results
12/15/23 06:43
12/16/23 06:41
Estimated Creat Clear 49 ml/min 12/16/23 06:41
Total Bilirubin 3.2 mg/dl (0.2-1.3) H 12/12/23 09:35
AST 51 U/L (17-59) 12/12/23 09:35
ALT 11 U/L (0-50) 12/12/23 09:35
Alkaline Phosphatase 110 U/L (38-126) 12/12/23 09:35
Most recent labs reviewed.
Micro Results:
12/07/23 06:02 MRSA Screen - Final
Nose No Methicillin Resistant Staphylococcus aureus isolated.
Imaging:
12/11/2023 CXR (2 view): Left-sided cardiac device is seen with intact wires in the expected location of the right atrium and right ventricle. Cardiomegaly noted. Small patchy right basilar opacification noted. Please see full dictation for
additional detail. Film personally viewed.
12/11/2023 Abdominal ultrasound: No evidence of cholelithiasis, gallbladder wall thickening or biliary tract dilatation. Some suspected gallbladder sludge noted. Findings suggestive of diffuse fatty liver noted. Please see full dictation for
additional detail.
--- NOTE | 2023-12-16 13:23 | W.PN.HOSP.TC ---
Today's Communication/Plan
-
npo, daily speech eval
ivf, slow rate down to prevent overload
palliative discussion
monitor hr
Assessment / Plan
Assessment / Plan
NAD, resting comfortably in bed
Scleral anicteric
Moist mucous membranes
No JVD
CTA bilateral
Normal S1-S2 no murmurs
Soft nontender nondistended bowel sounds active
No peripheral pitting edema
Moves extremities spontaneously
Left lower extremity specifically foot swollen, dorsal surface echymotic while antigh tib/fib erythematoud and blanching
AAO
#Nonpurulent cellulitis of LLE superficial wound
#Aspiration pneumonia versus pneumonitis
#Persistent leukocytosis
-Was initially placed on IV cefazolin at admission, induration and erythema improved
-Remains with a persistent leukocytosis, complains of productive cough
-X-ray showed opacification at the right lower lobe suspicion for CAP versus aspiration
-Was escalated to IV Zosyn for more broad-spectrum coverage
-Remains on room air, afebrile today
Plan
-Monitor off of atb
-Low threshold to transition back to cefazolin tomorrow
-S/p video swallow, currently on pur�ed diet
-Aspiration precautions
-ID consulted
Leukocytosis possibly related to aspiration pneumonitis
-ID will see and appreciate there input
#Acute on chronic HFrEF -- LVEF 15 to 20%, SIRENA on TTE
#Acute pulmonary edema
#CAD s/p PCI
-Likely ischemic cardiomyopathy versus infiltrative cardiomyopathy per echo and history
-GDMT includes beta-teri, was started on MRA upon this hospitalization howvere, MRA remain on hold due to hemodynamics
-Home regimen for loop diuretic Lasix 40 mg daily, transitioned to IV
-Warm and dry phenotype today, on room air
Plan
-Hold Lasix today as he appears dry, consider further dose on day by day basis
-Continue beta-teri. DC MRA as not tolerating GDMT
-Uptitrate GDMT as hemodynamics allow
-I/Os, weights, trend BMP
#Esophageal dysphagia -- DDx likely neuromuscular etiology, malignancy lower suspicion
-Complains of food getting stuck at times, rarely water involved
-He denies any regurgitation, has lost weight post COVID though may be related to COVID itself
-In the room today I watched him swallow and he did not appear to have any issues with fluids
-Speech rec NPO after he dailed VSE.
-ENT consulted
-Palliative care consulted for [facility]
#Persistent AF with RVR -- Status post PVI x 2, most recent on 11/11/2023
-Seems to have resolved, heart rate back into the 90s today though still in A-fib
-S/P Dofetilide; Remains on carvedilol, amiodarone, Eliquis is his home regimen
-Heart rate improved still borderline tacky on average, would benefit from PT
#Acute on chronic hyponatremia
-Likely hypervolemic etiology from decompensated heart failure, chronic diuretic use as well
-Sodium has been stable near 130, suspect that this may be near baseline for him
-No signs or symptoms associated with hyponatremia
-Trend daily BMP, monitor volume status
#CKD 3B -- baseline creatinine 0.9
-Per history, unclear etiology; most recent eGFR >70
-Renal function has been stable
# Moderate�severe MR
-Noted in severity on most recent DOUGLAS, no hemodynamic metrics available
-Murmur noted on exam, S1 audible
#Emphysema/former smoker
-Radiographic diagnosis, no PFTs or recent hospitalizations for COPD
-Does not seem to be on any standing inhalers at home
-Currently on room air, no wheezes
#Generalized weakness/deconditioning
#Moderate protein calorie malnutrition/cachexia with BMI of 18.3
-Due to chronic illness, acute on chronic issues as above, post-COVID syndrome from 04/2023
-Ensure with meals, promote oral intake, PT/OT
#Goals of care discussion with patient and family at the bedside 12/10: Noticed progressive declining over the recent past with ambulatory dysfunction, poor appetite, malnutrition. They were contemplating palliative approach and hospice, although
patient and family currently not ready to transition. They would like to try all possible options in terms of treatment of heart failure and A-fib, attempt of nutritional supplement and physical therapy with possible rehab at [facility]
facility.
DVT prophylaxis: Home Eliquis
Diet: NPO, started dextrose containing fluids
CODE STATUS: Full code
Anticipated Discharge: 24 - 48 hours
Subjective/Interval History
-
Date of Service: December 16, 2023
seen and examined
no new complaints
no acute overnight events
Objective Data
-
Labs:
Laboratory Results
12/16/23
06:41
Sodium 135
Potassium 4.1
Chloride 104
Carbon Dioxide 20 L
BUN 84 H
Creatinine 1.3
Glucose 139 H
Calcium 8.4
Vital Signs:
Vital Signs
Temp Pulse Resp BP Pulse Ox
97.4 F 66 16 95/65 95
12/16/23 12:05 12/16/23 12:05 12/16/23 12:05 12/16/23 12:05 12/16/23 12:05
I&O
12/15/23 12/16/23 12/17/23
06:59 06:59 06:59
Intake Total 760 / 760 0 / 0 0 / 0
Output Total 50 / 50 125 / 125
Balance 710 / 710 -125 / -125 0 / 0
--- NOTE | 2023-12-16 13:31 | W.CON.PAL ---
Addendum entered and electronically signed by Leatha Sanchez MD 12/16/23 15:14:
Symptom: consider oragel or xylimelt for mouth dryness/mouth sores
Original Note:
Consultation
-
Date/Time Consultation Requested: 12/15/2023
Date/Time Consultation Performed: 12/16/2023
Requesting Provider: Dr. Foote
Performing Provider: Dr. Sanchez
Reason for Consult: Goals of Care Discussion
Primary Diagnosis: Dysphagia,
Consult Requested By: Patient's Physician
Primary Care Physician: Dr. Webber
Reason for Admission
Illness Course/HPI
Ya is a 73 y/o male with hx of chronic weakness/weightloss/decline in function since covid apr 2023. �Hx of CH with reduced EF 15-20%, CADF, afib requiring cardioversion, left appendage clot on xarelto, Vtach, ICD/ PPM, MR, TR, Emphysema, CKD,
GERD, Depression, admitted to hospital because of left leg redness and swelling after fall at home the week prior. Admitted to hospital on 12/05, treated for cellulitis.
Hospital course complicated by prolonged QT, and afib. Attempt to control rate off of tikosyn has been difficult. Started on amiodarone 12/07.
12/10: new RLL pneumonia, thought to be aspiration, esophageal dysphagia.
12/14: video swallow � significant aspiration. airway aspiration noted with thin liquids, nectar consistency and pudding consistency
Functional Status & Support Systems
Current Functional Status:
Over the last 8 months he is very weak. Requiring asisstance with ADLs, transferring.
Has walker/wheelchair at home. No longer able to go upstairs to 2nd floor bedroom.
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
Spouse Jes is primary caregiver, receiving PT via [facility]
Previously had [place].
Has three children - ale merida, alejandro and ya
ADLS: Significant Assistance
IADLS: Significant Assistance
Review of Advanced Directives
Advanced Care Documentation Status: Incomplete
Surrogate Decision Maker (name & contact): Spouse eJs
Goals of Care Discussion
-
Individuals Present for Discussion & Relationship to Patient:
Patient and spouse present. patient is able to participate but is very tired, unable to make decisions, defering to .
will be speaking with their 3 children later today to discuss the recent video swallow results.
Patient shares that he feels liek he is not getting better, and is open to hospice, but also would be willing to consider peg tube for nutrition.
requesting more information about [facility] hospice as well as peg tube. Will reach out to cardioogy to see if this would be safe for him to undergo given the issues with afib, qtc etc in the hospital.
Illness Severity & Prognosis Discussion
Patient & family understanding of treatment/care options:
Family understand that his condition is worsening and it is likely that even with nutritional supplementation he might not improve.
Pain & Symptom Assessment
Patient Symptoms
Patient Symptoms: Pain (throat/mouth)
[place] Symptom Scale 0=none, 10=worst
Pain: 5
Tired: 10
Drowsy: 10
Nausea: 0
Appetite: 8
Shortness of Breath: 0
Objective Data
-
Objective Data:
Vital Signs
Temp Pulse Resp BP Pulse Ox
97.4 F 66 16 95/65 95
12/16/23 12:05 12/16/23 12:05 12/16/23 12:05 12/16/23 12:05 12/16/23 12:05
Laboratory Results
12/15/23 06:43
12/16/23 06:41
Total Protein 6.1 g/dl (6.3-8.2) L 12/12/23 09:35
Albumin 3.1 g/dl (3.5-5.0) L 12/12/23 09:35
Free T4 2.23 ng/dl (0.78-2.19) H 12/07/23 07:26
Palliative Performance Scale
Palliative Performance Scale:
PPS Level Ambulation Activity & Evidence of Disease Self Care Intake Conscious Level
100% Full Normal Activity & Work; Full Intake Full
No Evidence of Disease
90% Full Normal Activity & Work; Full Normal Full
Some Evidence of Disease
80% Full Normal Activity with Effort Full Normal or Full
Some Evidence of Disease Reduced
70% Reduced Unable Normal Job/Work Full Normal or Full
Significant Disease Reduced
60% Reduced Unable Hobby/Housework Occasional Normal or Full or Confusion
Significant Disease Assistance Reduced
50% Mainly Sit/Lie Unable to do Any Work Considerable Normal or Full or Confusion
Extensive Disease Assistance Req'd Reduced
40% Mainly in Bed Unable to do Most Activity Mainly Assistance Normal or Full or Drowsy;
Extensive Disease Reduced +/- Confusion
30% Totally Bed Unable to do Any Activity Total Care Normal or Full or Drowsy;
Bound Extensive Disease Reduced +/- Confusion
20% Totally Bed Bound Unable to do Any Activity Total Care Minimal to Full or Drowsy;
Extensive Disease Sips +/- Confusion
10% Totally Bed Bound Unable to do Any Activity Total Care Mouth Care Drowsy or Coma;
Extensive Disease Only +/- Confusion
0%
PPS Score Level: 10
Physical Exam
-
General: Appears Chronically Ill
HEENT: Other (dry mucus membranes, poor dentition )
Neuro: Awake
Psych: Confused
Assessment / Plan
-
Assessment/Plan:
Goals of Care
Family considering hospice services - asked CM to request call from [facility] to so she can have information prior to her meeting with kids.
Family would also need to know if peg tube insertion would be safe to do given his heart history.
Provided recommendation for hospice and DNR as patient has shared overall comfort oriented goals.
Care Reviewed
Data Reviewed
Reviewed with: Patient and Family
Time
Start Date: 12/16/23
Start Time: 12:20
Stop Date: 12/16/23
Stop Time: 13:52
Time Spent:
92 min
--- NOTE | 2023-12-16 13:48 | CM ---
Patient failed video swallow study. digital program manager received a call from physician that spouse was interested in having a family meeting and wanted information on hospice, patient's spouse had selected [facility], case loader operator reached out to [facility]ospice. and sent fax and asked them to contact patient's spouse.
[facility]
[phone]
[2023-12-16] MEDS: LOPRESSOR 2.5 MG IV ×2 (15:22→23:48)
[2023-12-16 15:25] VITALS: BP 99/68
[2023-12-16 19:45] VITALS: BP 99/68
[2023-12-16 23:40] VITALS: BP 99/65
[2023-12-17 03:12] VITALS: BP 97/66
[2023-12-17] MEDS: D5/0.9% SODIUM CHLORIDE 1000 IV (04:41)
[2023-12-17 06:00] VITALS: BMI 20.3
[2023-12-17 07:15] VITALS: BP 100/64
[2023-12-17] MEDS: HYDROPHOR 1 APPLIC TOPICAL (08:13)
[2023-12-17] MEDS: LOVENOX 70 MG SC (08:15)
[2023-12-17] MEDS: LOPRESSOR 2.5 MG IV (08:17)
[2023-12-17] MEDS: KCL PO (08:18)
[2023-12-17] MEDS: ZOLOFT PO (08:19)
[2023-12-17] MEDS: PROTONIX PO (08:19)
--- NOTE | 2023-12-17 10:23 | W.CAR.ICD ---
ICD Inactivation Request
-
Fireworks Inspector Notified: [employer]
The above vendor has been contacted to inactivate the patient's Implantable Cardioverter Defibrillator.
--- NOTE | 2023-12-17 10:31 | W.ICD.INACTI ---
ICD Device Inactivated
-
The patient's ICD device has been inactivated by the vendor.
--- NOTE | 2023-12-17 10:52 | CM ---
Addendum entered by Ana María Pavon 12/17/23 15:15:
IMM benefit explained to ; form signed @ [id number]
Addendum entered by Ana María Pavon 12/17/23 14:50:
Met with patient's at the bedside
[facility] Nurse spoke with patient's ; imposer will admit patient at his home tomorrow
Plan: discharge to home with home hospice today; Ambulance oyster picker scheduled for 1800 today
Addendum entered by Ana María Pavon 12/17/23 11:49:
Face Sheet and Clinical information faxed (#[phone]) to Telma @ [facility]
Plan: Pending confirmation from agency, patient will Discharge to Home with [facility] later today
Original Note:
Case Management Consult Complete; Referral for Hospice Care sent via [facility] to [facility]
[2023-12-17 11:08] VITALS: BP 96/70
--- NOTE | 2023-12-17 11:29 | W.PN.UPDATE ---
Update Note
Progress Note Update
echo 12/15 reviewed, with worsening in EF compared to prior, now read as 10-15%. per discussions with hospitalist and palliative care, patient and family have opted for home hospice. now DNR and ICD therapies have been deactivated at their request.
will plan to sign off, please call with questions.
--- NOTE | 2023-12-17 11:40 | W.PN.PAL2 ---
Today's Communication
-
Discussed with insurance territory manager & attending
Assessment / Plan
-
Assessment/Plan:
Goals of Care
Comfort care with home hospic
Reason for Admission
Illness Course/HPI
Palliative Care follow up Note. 10:56-11:17
Patient seen at bedside, daughter present. Daughter reports that patient's spouse and three children had a long discussion last night and patient also in agreement to return home with hospice, no plan to pursue peg tube at this time. Answered
questions about hospice care. Their preference is [facility] as they had their VN. They have a bed on the main floor already for now.
Patient in agreement with plan.
Above goals discussed with attending and case management.
Functional Status & Support Systems
ADLS: Significant Assistance
IADLS: Significant Assistance
Goals of Care Discussion
Patient Goals & Values Discussion
Summary of Patient's Goals of Care [Text6]:
Hospice Care
Objective Data
-
Objective Data:
Vital Signs
Temp Pulse Resp BP Pulse Ox
94.6 F L 71 18 96/70 95
12/17/23 11:08 12/17/23 11:08 12/17/23 11:08 12/17/23 11:08 12/17/23 11:08
Laboratory Results
12/15/23 06:43
Total Protein 6.1 g/dl (6.3-8.2) L 12/12/23 09:35
Albumin 3.1 g/dl (3.5-5.0) L 12/12/23 09:35
Free T4 2.23 ng/dl (0.78-2.19) H 12/07/23 07:26
Palliative Performance Scale
Palliative Performance Scale:
PPS Level Ambulation Activity & Evidence of Disease Self Care Intake Conscious Level
100% Full Normal Activity & Work; Full Intake Full
No Evidence of Disease
90% Full Normal Activity & Work; Full Normal Full
Some Evidence of Disease
80% Full Normal Activity with Effort Full Normal or Full
Some Evidence of Disease Reduced
70% Reduced Unable Normal Job/Work Full Normal or Full
Significant Disease Reduced
60% Reduced Unable Hobby/Housework Occasional Normal or Full or Confusion
Significant Disease Assistance Reduced
50% Mainly Sit/Lie Unable to do Any Work Considerable Normal or Full or Confusion
Extensive Disease Assistance Req'd Reduced
40% Mainly in Bed Unable to do Most Activity Mainly Assistance Normal or Full or Drowsy;
Extensive Disease Reduced +/- Confusion
30% Totally Bed Unable to do Any Activity Total Care Normal or Full or Drowsy;
Bound Extensive Disease Reduced +/- Confusion
20% Totally Bed Bound Unable to do Any Activity Total Care Minimal to Full or Drowsy;
Extensive Disease Sips +/- Confusion
10% Totally Bed Bound Unable to do Any Activity Total Care Mouth Care Drowsy or Coma;
Extensive Disease Only +/- Confusion
0%
PPS Score Level: 10
Physical Exam
-
General: No Apparent Distress, Comfortable, Appears Chronically Ill and Cachectic
Neuro: Awake
Care Reviewed
Data Reviewed
Reviewed with: Family
Time
Start Date: 12/17/23
Start Time: 10:56
Stop Date: 12/17/23
Stop Time: 11:22
Time Spent:
26
--- NOTE | 2023-12-17 13:33 | W.PN.HOSP.TC ---
Today's Communication/Plan
-
.
Assessment / Plan
Assessment / Plan
NAD, resting comfortably in bed
Scleral anicteric
Moist mucous membranes
No JVD
CTA bilateral
Normal S1-S2 no murmurs
Soft nontender nondistended bowel sounds active
No peripheral pitting edema
Moves extremities spontaneously
Left lower extremity specifically foot swollen, dorsal surface echymotic while antigh tib/fib erythematoud and blanching
AAO
#Nonpurulent cellulitis of LLE superficial wound
#Aspiration pneumonia versus pneumonitis
#Persistent leukocytosis
-Was initially placed on IV cefazolin at admission, induration and erythema improved
-Remains with a persistent leukocytosis, complains of productive cough
-X-ray showed opacification at the right lower lobe suspicion for CAP versus aspiration
-Was escalated to IV Zosyn for more broad-spectrum coverage
-Remains on room air, afebrile today
Plan
-Monitor off of atb
-Low threshold to transition back to cefazolin tomorrow
-S/p video swallow, currently on pur�ed diet
-Aspiration precautions
-ID consulted
Leukocytosis possibly related to aspiration pneumonitis
-ID will see and appreciate there input
#Acute on chronic HFrEF -- LVEF 15 to 20%, SIRENA on TTE
#Acute pulmonary edema
#CAD s/p PCI
-Likely ischemic cardiomyopathy versus infiltrative cardiomyopathy per echo and history
-GDMT includes beta-teri, was started on MRA upon this hospitalization howvere, MRA remain on hold due to hemodynamics
-Home regimen for loop diuretic Lasix 40 mg daily, transitioned to IV
-Warm and dry phenotype today, on room air
Plan
-Hold Lasix today as he appears dry, consider further dose on day by day basis
-Continue beta-teri. DC MRA as not tolerating GDMT
-Uptitrate GDMT as hemodynamics allow
-I/Os, weights, trend BMP
#Esophageal dysphagia -- DDx likely neuromuscular etiology, malignancy lower suspicion
-Complains of food getting stuck at times, rarely water involved
-He denies any regurgitation, has lost weight post COVID though may be related to COVID itself
-In the room today I watched him swallow and he did not appear to have any issues with fluids
-Speech rec NPO after he dailed VSE.
-ENT consulted
-Palliative care consulted for [facility]
#Persistent AF with RVR -- Status post PVI x 2, most recent on 11/11/2023
-Seems to have resolved, heart rate back into the 90s today though still in A-fib
-S/P Dofetilide; Remains on carvedilol, amiodarone, Eliquis is his home regimen
-Heart rate improved still borderline tacky on average, would benefit from PT
#Acute on chronic hyponatremia
-Likely hypervolemic etiology from decompensated heart failure, chronic diuretic use as well
-Sodium has been stable near 130, suspect that this may be near baseline for him
-No signs or symptoms associated with hyponatremia
-Trend daily BMP, monitor volume status
#CKD 3B -- baseline creatinine 0.9
-Per history, unclear etiology; most recent eGFR >70
-Renal function has been stable
# Moderate�severe MR
-Noted in severity on most recent DOUGLAS, no hemodynamic metrics available
-Murmur noted on exam, S1 audible
#Emphysema/former smoker
-Radiographic diagnosis, no PFTs or recent hospitalizations for COPD
-Does not seem to be on any standing inhalers at home
-Currently on room air, no wheezes
#Generalized weakness/deconditioning
#Moderate protein calorie malnutrition/cachexia with BMI of 18.3
-Due to chronic illness, acute on chronic issues as above, post-COVID syndrome from 04/2023
-Ensure with meals, promote oral intake, PT/OT
#Goals of care discussion with patient and family at the bedside 12/10: Noticed progressive declining over the recent past with ambulatory dysfunction, poor appetite, malnutrition. They were contemplating palliative approach and hospice, although
patient and family currently not ready to transition. They would like to try all possible options in terms of treatment of heart failure and A-fib, attempt of nutritional supplement and physical therapy with possible rehab at [facility]ility.
DVT prophylaxis: Home Eliquis
Diet: NPO, started dextrose containing fluids
CODE STATUS: DNR/DNI
I spoke to his who confirmed that she discussed his case with his children and they have come to the conclusion that it would be in his best interest for home hospice. They would like to take him home as soon as possible. [facility] has
been calm contacted per social work. Discharge order has been placed.
Anticipated Discharge: Today
Subjective/Interval History
-
Date of Service: December 17, 2023
no complaints. wants to go home
Objective Data
-
Labs:
Laboratory Results
12/17/23 12/17/23 12/17/23
06:55 09:39 10:16
Sodium Cancelled Cancelled Pending
Potassium Cancelled Cancelled Pending
Chloride Cancelled Cancelled Pending
Carbon Dioxide Cancelled Cancelled Pending
BUN Cancelled Cancelled Pending
Creatinine Cancelled Cancelled Pending
Glucose Cancelled Cancelled Pending
Calcium Cancelled Cancelled Pending
Vital Signs:
Vital Signs
Temp Pulse Resp BP Pulse Ox
94.6 F L 71 18 96/70 95
12/17/23 11:08 12/17/23 11:08 12/17/23 11:08 12/17/23 11:08 12/17/23 11:08
I&O
12/16/23 12/17/23 12/18/23
06:59 06:59 06:59
Intake Total 0 / 0 0 / 0
Output Total 125 / 125 300 / 300
Balance -125 / -125 -300 / -300
--- NOTE | 2023-12-17 13:35 | W.DCSUMMARY ---
Discharge Summary
Discharge Data
Date of Admission: 12/06/23
Date of Discharge: 12/17/23
-
Pending Results: No
Hospital Course
Presented with left leg swelling pain drainage/weeping. Treated with IV antibiotics. Was evaluated by infectious diseases did not believe he required any additional antibiotics therefore they were discontinued on 12/14/2023. This hospitalization
was further complicated by difficulty swallowing high risk of aspiration and evaluated by speech recommended n.p.o. indefinitely. Evaluated by ENT believed that this difficulty swallowing likely related to clinical deterioration and weakness.
Therefore, was evaluated by palliative care deemed appropriate for hospice. End-stage conditions which included end-stage heart failure along with failure to thrive. Decision was made for home hospice.
Wound Care Instructions
R LEG: moisturize with mineral oil daily then apply Tubigrip remove at hs
L leg: clean with saline, adaptic or vaseline gauze, alginate, abd pads and kerlix twice a day until drainage less then can do once a day.
Jaswant wrap knee high daily can remove at hs.
L arm: clean with saline, adaptic and silicone foam change q 2-3 days and prn drainage.
L leg elevation on several pillows, leg elevation when sitting
Increase protein in diet
Follow up at wound care center if needed, call for an appointment.
Discharge Plan
-
Patient Disposition: Home with Hospice
Discharge Diagnosis/Procedures: Cellulitis, aspiration, dysphagia
hfref
Condition: Critical
Diet: Other diet
Additional Diets: NPO or comfort feeds with understanding risk of aspiration
Activity: As tolerated and No strenuous activity
Driving Restrictions: No driving
Activity Restrictions/Additional Instructions:
Presented with left leg swelling pain drainage/weeping. Treated with IV antibiotics. Was evaluated by infectious diseases did not believe he required any additional antibiotics therefore they were discontinued on 12/14/2023. This hospitalization
was further complicated by difficulty swallowing high risk of aspiration and evaluated by speech recommended n.p.o. indefinitely. Evaluated by ENT believed that this difficulty swallowing likely related to clinical deterioration and weakness.
Therefore, was evaluated by palliative care deemed appropriate for hospice. End-stage conditions which included end-stage heart failure along with failure to thrive. Decision was made for home hospice.
Wound Care Instructions
R LEG: moisturize with mineral oil daily then apply Tubigrip remove at hs
L leg: clean with saline, adaptic or vaseline gauze, alginate, abd pads and kerlix twice a day until drainage less then can do once a day.
Jaswant wrap knee high daily can remove at hs.
L arm: clean with saline, adaptic and silicone foam change q 2-3 days and prn drainage.
L leg elevation on several pillows, leg elevation when sitting
Increase protein in diet
Follow up at wound care center if needed, call for an appointment.
Referrals:
Brendan Webber DO [Family Provider] -
Prescriptions:
Discontinued
sertraline 50 MG tablet
75 mg PO DAILY
famotidine 20 mg Tablet
20 mg PO DAILY
Eliquis 5 mg Tablet
5 mg PO BID
dofetilide [Tikosyn] 250 mcg capsule
250 mcg PO Q12H Qty: 60 0RF
cholecalciferol (vitamin D3) [Vitamin D3] 50 mcg (2,000 unit) Capsule
50 mcg PO DAILY
carvedilol 6.25 MG tablet
6.25 mg PO BID Qty: 0 0RF
furosemide 40 mg Tablet
40 mg PO DAILY 30 Days Qty: 90 5RF
Discharge Orders:
Discharge Patient (As Directed); Ordered 12/17/23
Ordered By: Rodolfo Foote
Discharge Date and Time
Print Language: ARABIC
[2023-12-17 14:45] VITALS: BP 99/61
== END 2023-12-17 17:29 | disposition hospice, home (50) | DRG 602 ==
LOC: 4 WEST ACU 21:26
PROVIDERS: Emergency Medicine; Internal Medicine; Physician Assistant Medical; Registered Nurse; ADMITTING PHYSICIAN Internal Medicine; ATTENDING PHYSICIAN Hospitalist; CONSULT PHYSICIAN Internal Medicine Cardiovascular Disease; CONSULT PHYSICIAN Internal Medicine Hospice and Palliative Medicine; EMERGENCY PHYSICIAN Emergency Medicine; FAMILY PHYSICIAN Family Medicine; OTHER PHYSICIAN Internal Medicine Infectious Disease; OTHER PHYSICIAN Otolaryngology
DX: L03.116 Cellulitis of left lower limb (principal); I50.23 Acute on chronic systolic (congestive) heart failure; J69.0 Pneumonitis due to inhalation of food and vomit; E87.1 Hypo-osmolality and hyponatremia; I48.19 Other persistent atrial fibrillation; I47.19 Other supraventricular tachycardia; I13.0 Hypertensive heart and chronic kidney disease with heart failure and stage 1 through stage 4 chronic kidney disease, or unspecified chronic kidney disease; E44.0 Moderate protein-calorie malnutrition; Z68.1 Body mass index [BMI] 19.9 or less, adult; Z51.5 Encounter for palliative care; I50.84 End stage heart failure; D63.1 Anemia in chronic kidney disease; K76.0 Fatty (change of) liver, not elsewhere classified; F32.A Depression, unspecified; N18.32 Chronic kidney disease, stage 3b; I08.1 Rheumatic disorders of both mitral and tricuspid valves; J43.9 Emphysema, unspecified; I71.40 Abdominal aortic aneurysm, without rupture, unspecified; R62.7 Adult failure to thrive; I95.9 Hypotension, unspecified; F41.9 Anxiety disorder, unspecified; K21.9 Gastro-esophageal reflux disease without esophagitis; E78.5 Hyperlipidemia, unspecified; E87.6 Hypokalemia; I25.10 Atherosclerotic heart disease of native coronary artery without angina pectoris; I25.5 Ischemic cardiomyopathy; Z95.5 Presence of coronary angioplasty implant and graft; D35.01 Benign neoplasm of right adrenal gland; K80.20 Calculus of gallbladder without cholecystitis without obstruction; M19.90 Unspecified osteoarthritis, unspecified site; M71.22 Synovial cyst of popliteal space [Baker], left knee; K08.9 Disorder of teeth and supporting structures, unspecified; K44.9 Diaphragmatic hernia without obstruction or gangrene; E83.42 Hypomagnesemia; U09.9 Post COVID-19 condition, unspecified; M62.81 Muscle weakness (generalized); K11.7 Disturbances of salivary secretion; R53.81 Other malaise; R49.0 Dysphonia; R26.2 Difficulty in walking, not elsewhere classified; R13.10 Dysphagia, unspecified; R09.82 Postnasal drip; W19.XXXA Unspecified fall, initial encounter; Y92.009 Unspecified place in unspecified non-institutional (private) residence as the place of occurrence of the external cause; Z79.01 Long term (current) use of anticoagulants; Z79.899 Other long term (current) drug therapy; Z87.891 Personal history of nicotine dependence; Z95.810 Presence of automatic (implantable) cardiac defibrillator; Z85.828 Personal history of other malignant neoplasm of skin; Z86.010 Personal history of colon polyps; Z96.642 Presence of left artificial hip joint; Z88.8 Allergy status to other drugs, medicaments and biological substances
CPT/HCPCS: 71046; 73610; 74230; 76700; 80048; 80053; 80076; 82248; 82962; 83735; 83880; 83935; 84300; 84439; 84443; 85025; 85027; 87070; 92526; 92610; 92611; 93005; 93288; 93306; 93971; 96374; 97163; 97167; 97530; 97535; 99285